=== PATIENT | female | born 1965 | race Caucasian/White ===

== ENCOUNTER 2017-02-10 19:29 | Emergency (ER) | payer OTHER ==
[2017-02-10 19:38] VITALS: BP 138/77
--- NOTE | 2017-02-10 21:17 | RAD ---
INDICATION: Left great toe pain COMPARISON: None. TECHNIQUE: 3 views of the left foot were obtained. FINDINGS: The adequately corticated bones are properly aligned. Degenerative changes of the left foot include enthesophyte formation at the calcaneal tubercle at the insertion site of the Achilles tendon and origin the plantar fascia. There is sclerotic change and mild marginal osteophyte formation at the left great toe metatarsal phalangeal joint. No definite fracture, dislocation or focal bony abnormality is seen. IMPRESSION: DEGENERATIVE CHANGES OF THE LEFT FOOT DESCRIBED ABOVE WITHOUT DEFINITE RADIOGRAPHICALLY VISIBLE FRACTURE. If the patient's symptoms persist, follow-up imaging is recommended.
[2017-02-10] MEDS ORDERED: oxyCODONE/Acetamin 5/325 MG* TAB PO ONE (21:23)
[2017-02-10] MEDS ORDERED: HYDROcodone/ACETAMIN 5-325 MG* 1 TAB PO ONE (21:30)
--- NOTE | 2017-02-10 22:37 | UC ---
Lenora Cheung Edward, scribed for Serafin Lucio MD on 02/10/17 at 2117 . Lower Extremity/Ankle HPI - HPI Summary HPI Summary: 51 y/o female presents to [facility] c/o sudden onset foot pain starting earlier today. Pain is rated 7/10 at triage, described as an aching pain. Pt's toe was pulled outward by the leg of a chair when her dog "attacked her". Pain is aggravated with weight bearing and ambulation. SHx left big toe (2012). - History of Current Complaint Chief Complaint: UCLowerExtremity Stated Complaint: TOE INJURY Time Seen by Provider: 02/10/17 21:11 Hx Obtained From: Patient Hx Last Menstrual Period: 2 yrs ago Onset/Duration: Sudden Onset, Lasting Hours Aggravating Factor(s): Standing, Ambulation Able to Bear Weight: No - Allergies/Home Medications Allergies/Adverse Reactions: Allergies Allergy/AdvReac Type Severity Reaction Status Date / Time Morphine Allergy Severe Rash Verified 02/10/17 19:38 PMH/Surg Hx/FS Hx/Imm Hx Previously Healthy: No Endocrine History: Diabetes Cardiovascular History: Hypertension Psychological History: Other Other Psychological History: Panic disorder - Surgical History Surgical History: Yes Surgery Procedure, Year, and Place: complete hysterectomy. tubal. left foot - Family History Known Family History: Positive: Respiratory Disease - Social History Occupation: Unemployed Lives: Alone Alcohol Use: None Substance Use Type: None Smoking Status (MU): Never Smoked Tobacco Have You Smoked in the Last Year: No - Immunization History Most Recent Influenza Vaccination: none Review of Systems Constitutional: Negative Skin: Negative Eyes: Negative ENT: Negative Respiratory: Negative Cardiovascular: Negative Gastrointestinal: Negative Genitourinary: Negative Motor: Negative Neurovascular: Negative Musculoskeletal: Arthralgia - L big toe pain Neurological: Negative Psychological: Negative All Other Systems Reviewed And Are Negative: Yes Physical Exam Triage Information Reviewed: Yes Vital Signs: Initial Vital Signs Temp 98.8 F 02/10/17 19:32 Pulse 84 02/10/17 19:32 Resp 18 02/10/17 19:32 BP 138/77 02/10/17 19:32 Pulse Ox 98 02/10/17 19:32 Vital Signs Reviewed: Yes - Additional Comments The patient is well-nourished in no acute distress and in no acute pain. The skin is warm and dry and skin color reflects adequate perfusion. Psychiatric: The patient has an appropriate affect and does not exhibit any anxiety or depression. Exam of LLE: The knee and ankle are non-tender. There is tenderness at the 2nd 3rd and 4th distal metatarsal. There is no ecchymosis. There is a laceration under the nail-bed. There is a subinguinal hematoma @ R great toe. There is marked tenderness @ the R great toe. Diagnostics - Radiology FOOT XRAY Xray Interpretation: No Acute Changes - DEGENERATIVE CHANGES OF THE LEFT FOOT DESCRIBED ABOVE WITHOUT DEFINITE RADIOGRAPHICALLY VISIBLE FRACTURE. If the patient's symptoms persist, follow-up imaging is recommended. Radiology Interpretation Completed By: Radiologist Lower Extremity Course/Dx - Course Course Of Treatment: 51 y/o female presents to [facility] c/o sudden onset foot pain starting earlier today. Pain is rated 7/10 at triage, described as an aching pain. Pt's toe was pulled outward by the leg of a chair when her dog "attacked her". Pain is aggravated with weight bearing and ambulation. SHx left big toe ( 2012). FOOT XR SHOWS DEGENERATIVE CHANGES OF THE LEFT FOOT DESCRIBED ABOVE WITHOUT DEFINITE RADIOGRAPHICALLY VISIBLE FRACTURE. If the patient's symptoms persist, follow-up imaging is recommended. Pt will be d/c home with f/u with PCP. - Differential Dx/Diagnosis Differential Diagnosis/HQI/PQRI: Contusion, Fracture (Closed), Sprain, Other - laceration Provider Diagnoses: Subungual hematoma with evacuation, contusion L foot, sprain L foot Discharge - Discharge Plan Condition: Stable Disposition: HOME Prescriptions: HYDROcodone/ACETAMIN 5-325 MG* [Gwynn 5-325 TAB*] 1 tab PO Q6H PRN #20 tab MDD 4 PRN Reason: pain Patient Education Materials: Subungual Hematoma (ED), Foot Contusion (ED), Foot Sprain (ED) Referrals: Yamilex Gunderson MD [Primary Care Provider] - 3 Days (Please f/u in 2-3 days) The documentation as recorded by the Lenora mejia Edward accurately reflects the service I personally performed and the decisions made by , Serafin Lucio MD.
== END 2017-02-10 22:15 | disposition home or self-care (01) ==
LOC: UCEAST 19:29
DX: S90.32XA Contusion of left foot, initial encounter (principal); S93.602A Unspecified sprain of left foot, initial encounter; W54.8XXA Other contact with dog, initial encounter; E11.9 Type 2 diabetes mellitus without complications; I10 Essential (primary) hypertension; F41.0 Panic disorder [episodic paroxysmal anxiety]; Z90.710 Acquired absence of both cervix and uterus; Z88.5 Allergy status to narcotic agent
CPT/HCPCS: 11740; 99213; A9270-GY; G0463

== ENCOUNTER 2017-03-02 18:55 | Emergency (ER) | payer OTHER ==
--- NOTE | 2017-03-02 20:06 | UC ---
Dizzy HPI HPI Summary: Pt presents to ED with complex med hx. Pt with a h/o vertigo, stroke, HTN, and DM. Pt states for 2 days has been having posterior UPTON, feeling unsteady and falling to the right. Pt states she struck her head earlier today second to being unsteady. Pt also reports intermittent chest presssure and squeezing on the right. Pt denies sob. No nausea and vomiting. Pt has not taken any medication other than her usual meds which includes ASA. Pt denies cardiac hx. Pt states sx feel similar to previous strokes. Does not follow with neurology Pt's medication reviewed at this visit. - History Of Current Complaint Chief Complaint: UCDizziness Stated Complaint: DIZZINESS Time Seen by Provider: 03/02/17 19:30 Hx Obtained From: Patient, Medical Records Hx Last Menstrual Period: 2 yrs ago Onset/Duration: Gradual Onset, Lasting Days Timing: Constant Severity Initially: Mild Severity Currently: Moderate Pain Intensity: 4 Character: Head Spinning, Room Spinning, Dizzy Aggravating Factor(s): Headache Alleviating Factor(s): Nothing Associated Signs And Symptoms: Positive: Nausea, Chest Pain, Unsteady Gait. Negative: Vomiting, Diaphoresis, SOB, Palpitations - Risk Factors CVA Risk Factor: Hypertension, Prior CVA/TIA, Diabetes - Allergies/Home Medications Allergies/Adverse Reactions: Allergies Allergy/AdvReac Type Severity Reaction Status Date / Time Morphine Allergy Severe Rash Verified 03/02/17 19:28 PMH/Surg Hx/FS Hx/Imm Hx Previously Healthy: Yes Endocrine History: Diabetes Cardiovascular History: Hypertension Neurological History: TIA, CVA Psychological History: Depression - Surgical History Surgical History: Yes Surgery Procedure, Year, and Place: complete hysterectomy. tubal. left foot, BLADDER TUCK - Family History Known Family History: Positive: Respiratory Disease - Social History Occupation: Unemployed Lives: With Family Alcohol Use: None Substance Use Type: None Smoking Status (MU): Current Every Day Smoker Type: Cigarettes Have You Smoked in the Last Year: No - Immunization History Most Recent Influenza Vaccination: none Review of Systems Constitutional: Negative Skin: Negative Eyes: Blurred Vision - intermittent ENT: Negative Respiratory: Negative Cardiovascular: Chest Pain - non current Gastrointestinal: Negative Genitourinary: Negative Motor: Negative Neurovascular: Other - dizziness, UPTON Musculoskeletal: Negative Neurological: Negative Psychological: Negative All Other Systems Reviewed And Are Negative: Yes Physical Exam Triage Information Reviewed: Yes Appearance: Well-Appearing, No Pain Distress, Well-Nourished Vital Signs: Initial Vital Signs Temp 98 F 03/02/17 19:19 Pulse 78 03/02/17 19:19 Resp 18 03/02/17 19:19 BP 140/78 03/02/17 19:19 Pulse Ox 98 03/02/17 19:19 Vital Signs Reviewed: Yes Eye Exam: Normal Eyes: Positive: Conjunctiva Clear ENT: Positive: Hearing grossly normal, Pharynx normal, TMs normal Dental Exam: Normal Neck exam: Normal Neck: Positive: Supple, Nontender, No Lymphadenopathy Respiratory Exam: Normal Respiratory: Positive: Chest non-tender, Lungs clear, Normal breath sounds, No respiratory distress, No accessory muscle use Cardiovascular Exam: Normal Cardiovascular: Positive: RRR, No Murmur Abdominal Exam: Normal Abdomen Description: Positive: Nontender, No Organomegaly, Soft Bowel Sounds: Positive: Present Musculoskeletal Exam: Normal Musculoskeletal: Positive: Strength Intact, ROM Intact Neurological: Positive: Other: - see NIH A+ox3 CN 2- 12 intact and full Pt reports increased sx with eye elevation + FNF b/l Full AROM ext b/l amb with slight drift to left + gross sensation throughout Psychological Exam: Normal Psychological: Positive: Normal Response To Family Skin Exam: Normal Dizzy Course/Dx - Course Course Of Treatment: Pt with complex med hx and h/o CVA presents c/o feeling dizziness, vertigo, headache, and intermittent CP. States feels like previous stroke. Pt has taken ASA. sx worse withvertical eye movement. EKG reviewed - no acute changes. Pt's BP borderline - pt transferred to ED for further eval. d/w pt - recommend to ED for further eval. pt comfortable and in agreement with plan - Differential Dx/Diagnosis Provider Diagnoses: vertigo. intermittent chest pain. headache - Physician Notifications Discussed Patient Care With: Dr. Lucio Time Discussed With Above Provider: 20:31 Discharge - Discharge Plan Condition: Stable Disposition: [facility] Discharge Disposition Comment: [facility] by EMS
[2017-03-02 20:20] VITALS: BP 142/80
== END 2017-03-02 20:45 | disposition short-term general hospital (02) ==
LOC: UCEAST 18:55
DX: R42 Dizziness and giddiness (principal); R07.89 Other chest pain; R51 Headache; R26.81 Unsteadiness on feet; R11.0 Nausea; E11.9 Type 2 diabetes mellitus without complications; I10 Essential (primary) hypertension; Z86.73 Personal history of transient ischemic attack (TIA), and cerebral infarction without residual deficits; F32.9 Major depressive disorder, single episode, unspecified; Z90.710 Acquired absence of both cervix and uterus; Z88.5 Allergy status to narcotic agent; F17.210 Nicotine dependence, cigarettes, uncomplicated
CPT/HCPCS: 93005; 99213; G0463

== ENCOUNTER 2017-03-02 20:47 | Emergency (ER) | payer OTHER ==
--- NOTE | 2017-03-02 22:02 | RAD ---
Indication: Chest pain. Single frontal view of the chest performed at 2145 hours was reviewed. Comparison is made with previous exam dated June 02, 2015. No mediastinal shift is noted. Heart is of normal size and configuration. Lung espinoza appear clear. IMPRESSION: NO ACTIVE CARDIOPULMONARY DISEASE IS NOTED.
[2017-03-02 22:08] LABS: Hematocrit 40 % (35-47); Hemoglobin 13.5 g/dl (12.0-16.0); Mean Corpuscular HGB Conc 34 g/dl (31-36); Mean Corpuscular Hemoglobin 28 pg (27-31); Mean Corpuscular Volume 82 fL (80-97); Mean Platelet Volume 9 um3 (7.4-10.4); Red Blood Count 4.82 10^6/ul (4.0-5.4); Red Cell Distribution Width 13 % (10.5-15); White Blood Count 6.8 10^3/ul (3.5-10.8)
[2017-03-02 22:24] LABS: Albumin 3.9 g/dL (3.2-5.2); BUN/Creatinine Ratio 19.2 (8-20); Calcium 9.1 mg/dL (8.6-10.3); EGFR African American 75.5 (>60); EGFR Non-African American 58.7 (>60); Globulin 3.1 g/dL (2-4); Magnesium 2.1 mg/dL (1.9-2.7); Potassium 3.7 mmol/L (3.5-5.0); Total Bilirubin 0.6 mg/dL (0.2-1.0)
[2017-03-02] MEDS ORDERED: Butalb/Acetamin/Caff TAB* 1 TAB PO ONE (22:49)
[2017-03-02 23:13] VITALS: BP 169/143
[2017-03-03 00:08] LABS: Urine Bacteria Absent (Absent); Urine Bilirubin Negative (Negative); Urine Glucose Negative (Negative); Urine Nitrite Negative (Negative)
--- NOTE | 2017-03-03 00:19 | ED ---
Ivelisse Cheung Thomas, scribed for Levon Mora on 03/02/17 at 2139 . Dizziness - HPI Summary HPI Summary: The pt is a 51 y/o F referred from [facility] and presenting to the ED c/o dizziness characterized as vertigo that began earlier today. The patient has a Hx of CVA, and reports that she felt similar dizziness during her last CVA. She also reports that she walked into a wall earlier today, prompting evaluation at [facility] , although in the ED she denies any head trauma. The dizziness is aggravated by rotating her head to the right. It is alleviated by nothing. 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 Pt additionally c/o CP, UPTON, and neck pain. PMHx: CVA, HTN, DM. SHx: no smoking, no alcohol use, no drug use. She was seen by Dr. Fatoumata Clinton at [facility]. - History Of Current Complaint Chief Complaint: EDHeadache Stated Complaint: HEADACHE Time Seen by Provider: 03/02/17 21:20 Hx Obtained From: Patient Onset/Duration: Still Present Timing: Constant - onset earlier today Aggravating Factor(s): Change In Head Position - to the right but not the left Alleviating Factor(s): Nothing Associated Signs And Symptoms: Positive: Chest Pain, Other: - POS: UPTON, neck pain Related History: Similar Episode/Dx as - Her previous CVA - Allergies/Home Medications Allergies/Adverse Reactions: Allergies Allergy/AdvReac Type Severity Reaction Status Date / Time Morphine Allergy Severe Rash Verified 03/02/17 19:28 PMH/Surg Hx/FS Hx/Imm Hx Previously Healthy: No Endocrine/Hematology History: Reports: Hx Diabetes - diet controlled Denies: Hx Thyroid Disease Cardiovascular History: Reports: Hx Hypertension Denies: Hx Congestive Heart Failure, Hx Pacemaker/ICD Respiratory History: Denies: Hx Asthma, Hx Chronic Obstructive Pulmonary Disease (COPD) GI History: Reports: Other GI Disorders - hx vomiting 2 yrs ? no dx per pt Denies: Hx Ulcer Neurological History: Reports: Hx CVA Psychiatric History: Reports: Hx Panic Disorder - Cancer History Hx Chemotherapy: No Hx Radiation Therapy: No - Surgical History Surgery Procedure, Year, and Place: complete hysterectomy. tubal. left foot, BLADDER TUCK Infectious Disease History: Denies: Hx Clostridium Difficile, Hx Hepatitis, Hx Human Immunodeficiency Virus (HIV), Hx of Known/Suspected MRSA, Hx Shingles, Hx Tuberculosis, Hx Known/ Suspected VRE, Hx Known/Suspected VRSA, History Other Infectious Disease, Traveled Outside the [place] in Last 30 Days - Family History Known Family History: Positive: Respiratory Disease - Social History Alcohol Use: None Substance Use Type: Reports: None Hx Tobacco Use: No Smoking Status (MU): Never Smoked Tobacco Have You Smoked in the Last Year: No Review of Systems Negative: Fever Positive: Chest Pain Positive: Other - POS: neck pain Neurological: Other - POS: dizziness Positive: Headache All Other Systems Reviewed And Are Negative: Yes Physical Exam Triage Information Reviewed: Yes Vital Signs On Initial Exam: Temp 97.5, HR 56, RR 14, SaO2 97, BP 143/53 Vital Signs Reviewed: Yes Appearance: Positive: Well-Appearing, No Pain Distress Skin: Positive: Warm, Skin Color Reflects Adequate Perfusion, Dry Head/Face: Positive: Normal Head/Face Inspection Eyes: Positive: EOMI, KIERA ENT: Positive: Normal ENT inspection Neck: Positive: Supple, Nontender Respiratory/Lung Sounds: Positive: Clear to Auscultation, Breath Sounds Present Cardiovascular: Positive: RRR, Pulses are Symmetrical in both Upper and Lower Extremities Abdomen Description: Positive: Nontender, Soft Bowel Sounds: Positive: Present Musculoskeletal: Positive: Normal, Strength/ROM Intact Neurological: Positive: Normal, Sensory/Motor Intact, Alert, Oriented to Person Place, Time Diagnostics - Vital Signs Temp 97.5, HR 56, RR 14, SaO2 97, BP 143/53 - Laboratory Result Diagrams: 03/02/17 20:10 03/02/17 20:10 Lab Statement: Any lab studies that have been ordered have been reviewed, and results considered in the medical decision making process. - Radiology CXR Xray Interpretation: No Acute Changes - no active cardiopulmonary disease Radiology Interpretation Completed By: Radiologist - EKG 21:33 Cardiac Rate: NL - 61 BPM Re-Evaluation - Re-Evaluation First Eval Re-Evaluation Time: 00:08 Change: Improved Comment: She feels better Dizzy Course/Dx - Diagnoses Provider Diagnoses: Dizziness, Headache Discharge - Discharge Plan Condition: Stable Disposition: HOME Patient Education Materials: Acute Headache (ED), Dizziness (ED) Referrals: Yamilex Gunderson MD [Primary Care Provider] - 3 Days Additional Instructions: Follow up with Dr. Gunderson in three days. The documentation as recorded by the geibIvelisse contreras Thomas accurately reflects the service I personally performed and the decisions made by me, Levon Mora.
--- NOTE | 2017-03-03 07:39 | RAD ---
INDICATION: Headache COMPARISON: CT of the brain dated March 02, 2017 TECHNIQUE: Contiguous axial sections of the brain were obtained from the skull base to the vertex without contrast. FINDINGS: The ventricles, cisterns and sulci are within normal limits. The pratt-white matter differentiation is adequately maintained and there is no sulcal effacement. No significant focal abnormality or mass effect is present. There is no evidence for intracranial hemorrhage. No significant focal osseous abnormality is present. The visualized portion of the paranasal sinuses and mastoid air cells appear clear. IMPRESSION: Normal CT of the brain.
== END 2017-03-03 00:32 | disposition home or self-care (01) ==
LOC: ED 20:47
DX: R51 Headache (principal); R42 Dizziness and giddiness; R07.9 Chest pain, unspecified; M54.2 Cervicalgia
CPT/HCPCS: 36415; 70450; 71010; 80053; 81003; 81015; 83735; 83880; 84484; 85025; 85610; 85730; 87077; 87086; 93005; 99283; A9270-GY

== ENCOUNTER 2017-07-02 15:39 | Emergency (ER) | payer OTHER ==
[2017-07-02 15:49] VITALS: BP 151/72
--- NOTE | 2017-07-02 16:24 | RAD ---
INDICATION: Right thumb injury. TECHNIQUE: 3 views of the right thumb were obtained. FINDINGS: There is soft tissue swelling at the metacarpal phalangeal joint. The bones are normal alignment. No fracture is seen. There is mild to moderate osteoarthritic change in the metacarpal phalangeal and interphalangeal joints. IMPRESSION: SOFT TISSUE SWELLING, NO FRACTURE IS SEEN.
--- NOTE | 2017-07-02 16:26 | RAD ---
INDICATION: Right wrist injury. TECHNIQUE: 3 views of the right wrist were obtained. FINDINGS: There is lateral soft tissue swelling. The bones are normal alignment. No fracture is seen. There is mild osteoarthritic change in the first carpal metacarpal joint. IMPRESSION: SOFT TISSUE SWELLING, NO FRACTURE IS SEEN. IF THE PATIENT'S SYMPTOMS PERSIST RECOMMEND FOLLOW-UP IMAGING.
--- NOTE | 2017-07-02 16:32 | UC ---
Hand/Wrist HPI - HPI Summary HPI Summary: Pt presents with right thumb pain s/p injury sustained last night. She was holding her dog on a leash when the dog ran in the opposite direction - her right thumb got caught in the leash and bent backwards. Pt says her right dorsal thumb hyperextended and touched her right dorsal radial forearm. Had immediate pain followed by swelling and ecchymosis. She has not taken anything for the pain. She is experiencing some numbness/tingling in her right thumb and right index finger. Denies previous injury to this hand/wrist. - History Of Current Complaint Chief Complaint: UCUpperExtremity Stated Complaint: HAND INJURY Time Seen by Provider: 07/02/17 15:54 Hx Obtained From: Patient Hx Last Menstrual Period: 2 yrs ago Onset/Duration: Sudden Onset Severity Initially: Moderate Severity Currently: Moderate Pain Intensity: 4 Pain Scale Used: 0-10 Numeric Character Of Pain: Dull, Aching, Throbbing Aggravating Factor(s): Movement - Allergies/Home Medications Allergies/Adverse Reactions: Allergies Allergy/AdvReac Type Severity Reaction Status Date / Time Morphine Allergy Severe Rash Verified 07/02/17 15:49 Home Medications: Home Medications Acetaminophen [Tylenol] 650 mg PO Q6H PRN 07/02/17 [History Confirmed 07/02/17] PMH/Surg Hx/FS Hx/Imm Hx GI/ History: Gastroesophageal Reflux Psychological History: Anxiety, Depression - Surgical History Surgical History: Yes Surgery Procedure, Year, and Place: complete hysterectomy. tubal. left foot, BLADDER TUCK. colon tuck - Family History Known Family History: Positive: Respiratory Disease - Social History Occupation: Employed Full-time Lives: With Family Alcohol Use: None Substance Use Type: None Smoking Status (MU): Never Smoked Tobacco Type: Cigarettes Have You Smoked in the Last Year: No - Immunization History Most Recent Influenza Vaccination: none Review of Systems Constitutional: Negative Skin: Bruising - thenar region of right hand Respiratory: Negative Cardiovascular: Negative Musculoskeletal: Edema - right thumb, Other: - Pain right thumb Neurological: Numbness - Right index and thumb All Other Systems Reviewed And Are Negative: Yes Physical Exam Triage Information Reviewed: Yes Appearance: Well-Appearing, No Pain Distress, Obese Vital Signs: Initial Vital Signs Temp 98.6 F 07/02/17 15:44 Pulse 76 07/02/17 15:44 Resp 16 07/02/17 15:44 BP 151/72 07/02/17 15:44 Pulse Ox 99 07/02/17 15:44 Vital Signs Reviewed: Yes Neck: Positive: Supple, Nontender, No Lymphadenopathy Respiratory: Positive: Chest non-tender, Lungs clear, Normal breath sounds, No respiratory distress, No accessory muscle use Cardiovascular: Positive: RRR, No Murmur, Pulses Normal - Right radial and ulnar , Brisk Capillary Refill - Right hand and all fingers Musculoskeletal: Positive: Strength Intact - Right hand and all fingers., ROM Intact - Right hand and all fingers. She is able to oppsoe, but with pain., No Edema - Right thenar region, Strength Limited @ - Optical Glass Silverer strength right hand, Other: - TTP over dorsal aspect of right thumb into right snuffbox along tendons. TTP right thenar region. Negative tinel and phalen test. Neurological: Positive: Alert, Other: - Sensations intact right hand and all fingers Psychological: Positive: Age Appropriate Behavior Skin: Positive: Other - Ecchymosis overlying the right thenar region. Hand/Wrist Course/Dx - Course Course Of Treatment: Right thumb and wrist XR: SOFT TISSUE SWELLING, NO FRACTURE IS SEEN. Suspect gamekeeper's thumb or strain of thumb ligaments/ tendons. Placed in thumb spica brace and advised to follow up with orthopedics. RICE and tylenol for pain - Differential Dx/Diagnosis Differential Diagnosis/HQI/PQRI: Contusion, Fracture, Sprain, Strain, Tendonitis , Tenosynovitis Provider Diagnoses: Right thumb sprain Discharge - Discharge Plan Condition: Stable Disposition: HOME Patient Education Materials: Skier's Thumb (ED) Referrals: Yamilex Gunderson MD [Primary Care Provider] - Teresa Martinez MD [Medical Doctor] - As Soon As Possible Additional Instructions: If you develop a fever, shortness of breath, chest pain, new or worsening symptoms - please call your PCP or go to the ED. Your blood pressure was high at todays visit. Please see your primary provider within 4 weeks for recheck and re-evaluation. 1) Keep your thumb/hand in the splint for the next 3-5 days as much as possible 2) Ice the area and take Tylenol OTC for pain/swelling. 3) Please call the number below to schedule a follow up with orthopedics.
== END 2017-07-02 16:55 | disposition home or self-care (01) ==
LOC: UCEAST 15:39
DX: S63.601A Unspecified sprain of right thumb, initial encounter (principal); X58.XXXA Exposure to other specified factors, initial encounter; Y92.9 Unspecified place or not applicable; Z88.5 Allergy status to narcotic agent
CPT/HCPCS: 99211; G0463

== ENCOUNTER 2017-09-28 06:19 | Inpatient (IN) | payer OTHER ==
--- NOTE | 2017-09-17 16:52 | HP ---
HISTORY AND PHYSICAL: DATE OF ADMISSION/SURGERY: 09/28/17 SURGEON: Guerda Bryant MD.* (DICTATED BY DAVON ORTIZ) PROCEDURE: Left total knee arthroplasty. CHIEF COMPLAINT: Left knee pain. HISTORY OF PRESENT ILLNESS: Ms. Box is a 52-year-old female with complaints of left knee pain. She has failed conservative management and elected to proceed with a left total knee arthroplasty which is scheduled for 09/28/17. PAST MEDICAL HISTORY: 1. Hypertension. 2. History of stroke. 3. Depression. 4. Anxiety. 5. GERD. 5. Schizoaffective disorder. PAST SURGICAL HISTORY: 1. Left foot corn removal. 2. Hysterectomy. 3. Bladder and colon tucks. CURRENT MEDICATIONS: 1. Ranitidine 150 mg twice a day. 2. Aspirin 81 mg daily. 3. Citalopram hydrobromide 10 mg every day. 4. Amlodipine 10 mg daily. 5. Omeprazole 20 mg daily. 6. Multivitamin. 7. Fiber. 8. Atorvastatin. 9. Calcium 20 mg q.h.s. ALLERGIES: MORPHINE causing a rash. FAMILY HISTORY: Unknown. SOCIAL HISTORY: A 52-year-old female. She lives with her daughter and roommate. She denies use of drugs, alcohol or smoking. REVIEW OF SYSTEMS: A complete 14-point review of systems was reviewed with the patient. It is positive for history of stroke and GERD. She denies history of DVT, PE, hepatitis C, HIV or anesthesia problems. PHYSICAL EXAMINATION GENERAL: She is well developed, well nourished, in no acute distress. VITAL SIGNS: She stands 5 feet 7 inches tall, weighs 217 pounds. Her blood pressure is 124/82, heart rate 85. HEENT: Normocephalic, atraumatic. NECK: Supple. No palpable lymph nodes. PULMONARY: The lungs are clear to auscultation bilaterally. CARDIAC: Regular rate and rhythm. Strong S1 and S2. ABDOMEN: Soft, nontender, and nondistended. MUSCULOSKELETAL: Left lower extremity, the skin is intact. There is no open wounds or abrasions. She has some tenderness over the medial and lateral joint line. There is a moderate joint effusion. Range of motion is 10 to 120 degrees with significant patellofemoral crepitus and pain, 2+ dorsalis pedis pulses. She has intact sensation. Her lower extremity muscle group strengths are intact at 5/5. NEUROLOGIC: She is alert and oriented x3. Cranial nerves II through XII are intact. ASSESSMENT AND PLAN: Ms. Box is a 52-year-old female with complaints of left knee pain secondary to end-stage osteoarthritis. She has failed conservative management and has elected to proceed with a left total knee arthroscopy, which is scheduled for 09/28/[address] Bryant discussed the risks and benefits of the surgery at today's visit and all of her questions were answered. Coumadin, Colace and Percocet were sent to our pharmacy for postoperative pain control and DVT prophylaxis. She will follow up with Dr. Bryant 2 weeks after the surgery. DAVON ORTIZ [id number]/CPS #: [id number] MTDD
[~2017-09-28 06:19] MED LIST: Acetaminophen TAB* 325 MG PO ONE; Buffered Lidocaine 0.9% SYRIN* 5 ML/SYR SYRINGE INTRADERM ONE; Dexamethasone IV* 4 MG/ML 1 ML (4 MG) IV SLOW PU ONE; Famotidine IV* 10 MG/ML 2 ML (20 mg) IV ONE
[2017-09-28] MEDS ORDERED: ceFAZolin 2 GM PREMIX (*) 2 GM/50 ML BAG IVPB ONE (06:53)
[2017-09-28] MEDS ORDERED: Acetaminophen TAB* 325 MG ONE (06:53)
[2017-09-28] MEDS ORDERED: Dexamethasone IV* 4 MG/ML 1 ML (4 MG) ONE (06:53)
[2017-09-28] MEDS ORDERED: Famotidine IV* 10 MG/ML 2 ML (20 mg) ONE (06:53)
[2017-09-28] MEDS ORDERED: Bupivacaine 0.5% SDV PF* 10-30ML VIAL ONE (07:18)
[2017-09-28] MEDS ORDERED: Lidocaine 2% PF * 5 ML VIAL ONE (07:44)
[2017-09-28] MEDS ORDERED: Midazolam* 1 MG/ML 2 ML VIAL (2 MG) ONE (07:44)
[2017-09-28] MEDS ORDERED: fentaNYL* 50 MCG/ML 2 ML VIAL (100 MCG VIAL) ONE (07:44)
[2017-09-28] MEDS ORDERED: Propofol* 500 MG/50 ML BTL ONE (07:44)
[2017-09-28] MEDS ORDERED: Polyethylene Glycol 3350* 17 GM PACKET PO PRN (07:56)
[2017-09-28] MEDS ORDERED: Ondansetron INJ* 2 MG/ML VIAL IV PRN (07:56)
[2017-09-28] MEDS ORDERED: Magnesium Hydroxide LIQ* 30 ML UDC PO PRN (07:56)
[2017-09-28] MEDS ORDERED: oxyCODONE/Acetamin 5/325 MG* TAB PO PRN (07:56)
[2017-09-28] MEDS ORDERED: Acetaminophen TAB* 325 MG PO PRN (07:56)
[2017-09-28] MEDS ORDERED: diPHENhydraMINE IV* 50 MG/ML 1 ml VIAL (BENADRYL) IV PRN ×2 (07:56→08:01)
[2017-09-28] MEDS ORDERED: Cyclobenzaprine TAB* 10 MG PO PRN (07:56)
[2017-09-28] MEDS ORDERED: Bisacodyl SUPP* 10 MG SUPP PR PRN (07:56)
[2017-09-28] MEDS ORDERED: Ondansetron TAB* 4 MG PO PRN (07:56)
[2017-09-28] MEDS ORDERED: ceFAZolin 1 GM in Dextrose (*) 1 GM/50 ML BAG IVPB SCH (08:00)
[2017-09-28] MEDS ORDERED: Naloxone* 0.4 MG/ML 1 ML VIAL IV PRN (08:01)
[2017-09-28] MEDS ORDERED: fentaNYL* 50 MCG/ML 2 ML VIAL (100 MCG VIAL) IV PRN (08:01)
[2017-09-28] MEDS ORDERED: Scopolamine 1.5 mg* PATCH TRANSDERM PRN (08:01)
[2017-09-28] MEDS ORDERED: oxyCODONE TAB* 5 MG TAB PO PRN ×2 (08:01)
[2017-09-28] MEDS ORDERED: HYDROmorphone INJ* 1 MG/ML CARPUJECT SYRINGE IV PRN (08:01)
[2017-09-28] MEDS ORDERED: PROCHLORPERAZINE INJ 5 MG/ML 2 ML VIAL IM PRN (08:02)
[2017-09-28] MEDS ORDERED: HYDROmorphone INJ* 2 MG/ML CARPUJECT SYRINGE IV SLOW PU PRN (08:05)
[2017-09-28] MEDS ORDERED: Rocuronium* 10 MG/ML VIAL ONE (08:17)
[2017-09-28] MEDS ORDERED: ATORVASTATIN CALCIUM 20 MG PO SCH (09:00)
[2017-09-28] MEDS ORDERED: amLODIPine TAB* 5 MG PO SCH (09:00)
[2017-09-28] MEDS ORDERED: HYDROmorphone INJ* 1 MG/ML CARPUJECT SYRINGE ONE (09:01)
[2017-09-28] MEDS ORDERED: EPHEDrine (Pressors)* 50 MG/ML VIAL ONE (09:02)
[2017-09-28] MEDS ORDERED: Ketorolac INJ* 30 MG/ML 1 ML VIAL ONE (09:03)
[2017-09-28] MEDS ORDERED: Glycopyrrolate IV* 0.2 MG/ML 1 ML VIAL ONE (10:10)
[2017-09-28] MEDS ORDERED: Neostigmine Methylsulfate* 1 MG/ML 10 ML VIAL (1 mg/ml) ONE (10:10)
[2017-09-28] MEDS ORDERED: Ondansetron INJ* 2 MG/ML VIAL ONE (10:20)
--- NOTE | 2017-09-28 11:41 | RAD ---
INDICATION: Left total knee replacement COMPARISON: July 27, 2017 TECHNIQUE: AP and lateral views were obtained. FINDINGS: There is left knee arthroplasty. Both femoral and tibial components appear well seated. There is no overlying cooling jacket. IMPRESSION: LEFT KNEE ARTHROPLASTY.
[2017-09-28] MEDS ORDERED: oxyCODONE TAB* 5 MG TAB ONE (11:52)
--- NOTE | 2017-09-28 13:03 | CONS ---
CC: Dr. Gunderson; Dr. Bryant * CONSULTATION REPORT: DATE OF CONSULT: 09/28/17 PRIMARY CARE PROVIDER: Dr. Gunderson. REQUESTING PHYSICIAN IN CONSULT: Guerda Bryant MD. REASON FOR MEDICAL CONSULTATION: Evaluation of comorbid medical conditions and medical management. MY ATTENDING PHYSICIAN WHILE IN THE HOSPITAL: Freda Park DO. HISTORY OF PRESENT ILLNESS: I refer you to Dr. Bryant's H and P dictated for further details. In short, Ms. Box is a 52-year-old female patient with multiple medical problems who carries a history of hypertension, depression, anxiety, schizoaffective disorder, GERD, history of CVA in the past, question if this was functional or not. She has had exhaustive workup. She basically came in to Dr. Bryant's service as she has been complaining of left knee pain for some time, she had failed conservative therapy and elected to proceed for a left total knee replacement which she underwent today. Because of her complexity, we were asked to evaluate and help manage the patient. She was evaluated in the PACU. She is drowsy from the anesthetic, but she does awaken and she is appropriate. She states she is not having any chest pain. She states her knee feels sore. She denies having any shortness of breath or any abdominal pain. She states she does not feel nauseous and she denies having any shortness of breath and states that she does not feel like she is going to faint. She states she does not feel lightheaded or dizzy. She just feels tired and sore. Again, her medical complexity is the reason for the medical evaluation. PAST MEDICAL HISTORY: Significant for: 1. Hypertension. 2. Prediabetes. 3. Depression. Question if schizoaffective disorder. 4. History of CVA. Question if functional. 5. Arthritis. 6. Restless leg syndrome. 7. Chronic back pain. 8. Obesity. PAST SURGICAL HISTORY: 1. She has had a tubal ligation. 2. D and C. 3. Foot surgery. 4. Hysterectomy. 5. Left total knee replacement. HOME MEDICATIONS: Include: 1. Zantac 150 mg p.o. b.i.d. 2. Norvasc 10 mg daily. 3. Restless leg 10 mg daily. 4. Omeprazole 20 mg daily. 5. Multivitamin 1 tablet daily. 6. Fiber therapy 500 mg p.o. daily. 7. Celexa 10 mg p.o. daily. 8. Lipitor 20 mg daily. 9. Aspirin 81 mg daily. ALLERGIES TO MEDICATIONS: Include MORPHINE. FAMILY HISTORY: Unknown per the patient. SOCIAL HISTORY: She denies smoking or alcoholism. Surrogate decision makers are her children. REVIEW OF SYSTEMS: There is no documented fever. She denied having any significant weight change. No double vision. No ear discharge. No rhinorrhea. No sore throat. No thyroid enlargement. Denies having any chest pain. No orthopnea, no nocturnal dyspnea, no abdominal pain. No nausea, no vomiting, no dysuria. No frequency. No seizure. No loss of consciousness. No pruritus and no skin ulcerations. Review of 14 systems completed, all others negative. PHYSICAL EXAMINATION: Vital Signs: Blood pressure 130/65, pulse 89, respirations 14, O2 sat 97% on 8 L and temperature 98.1. General: At this time , Ms. Box is a 52-year-old female patient. She is sitting in the PACU stretcher. She does not appear to be in any acute distress. She appears to be well nourished, well developed. HEENT: Head is atraumatic. Eyes: Sclerae anicteric, not pale. Pupils equal and reactive to light. Throat: Oral mucosa appears to be dry. No oropharyngeal erythema. Neck: Supple. Lungs: Clear to auscultation bilaterally. No wheezes, rales or rhonchi. Heart: Sounds S1, S2. Regular rate and rhythm. No murmurs, rubs or gallops. Abdomen: Soft, flat, nontender. Bowel sounds hypoactive. Extremities: Pulses were 2+ throughout. Distal CSM checks are intact to the left lower extremity. She is unable to move that lower extremity as this is the preoperative leg, but she is moving the upper extremities at this point with 5/5 strength. Neurological: She is drowsy, but she awakens to her name. She is alert. She is oriented x3. Her traffic signal mechanic to me were equal. Tongue was midline. She had no gross focal deficits. Her skin was intact with the exception she has an incision to the left knee which is covered with an Marcell dressing with a Hemovac which is clean, dry and intact. LABORATORY DATA/DIAGNOSTIC STUDIES: Preop WBC of 6.6, RBC of 4.95, hemoglobin 13.9, hematocrit of 41, platelet count of 220,000. The INR was 0.90. The sodium was 141, potassium of 3.9, chloride of 105, bicarb 31, BUN 15, creatinine 0.86, AST 16, ALT 16. Urine preop showed trace leukocyte esterase, present squamous epithelial cells. Microbiology preop was negative for urine culture. She did have a preop chest x-ray which showed no acute cardiopulmonary process was evident. She did have an EKG outpatient showing a normal sinus rhythm, rate of 86. No ST-elevations or T-wave inversions. Old medical records reviewed. ASSESSMENT AND PLAN: Ms. Box is a 52-year-old female patient coming in to the orthopedic services today for an elective left total knee. We were asked to evaluate in consult. Recommendations at this point are: 1. Status post left total knee. I will defer the management to Dr. Byrant and her team. 2. History of hypertension. I have ordered her Norvasc. She did undergo general anesthesia. Her blood pressure postop is now on the 130s. I wrote for hold parameters for the blood pressure medications, but we will continue her Norvasc for now. 3. History of cerebrovascular accident. Continue with secondary prevention. I do note that Orthopedics stopped her aspirin. I will restart this as soon as possible when it is deemed safe and appropriate by Orthopedics, to help with secondary prevention and continue her statin therapy. 4. Anxiety and depression with question of schizoaffective disorder. Continue her Celexa. Continue meds as prescribed. 5. DVT prophylaxis. Defer to the primary team. 6. Chronic back pain. She can follow with her primary. 7. Osteoarthritis. Continue with current medical management. 8. Fluids, electrolytes and nutrition. I would recommend a heart healthy diet. 9. Code status: She is a full code. 10. Prediabetes. Again at this point, she is not actively diabetic, but we will follow her a.m. glucose. TIME SPENT: On the consult was 60 minutes, greater than half that time was spent [id number] with the patient obtaining my history and physical, the other half time was spent going over the plan of care with the patient and implementing the plan of care. I did discuss plan of care with my attending, Dr. Park, she is in agreement. ALEXI DOMINGO, MECHANICAL ENGINEERING TECHNICIAN [id number]/[facility] #: [id number] GIOVANA
[2017-09-28] MEDS: Docusate CAP* 100 MG PO SCH ×2 (13:22→20:31)
[2017-09-28] MEDS: Citalopram TAB* 10 MG PO SCH (13:22)
[2017-09-28] MEDS: Famotidine TAB* 20 MG PO SCH ×3 (13:23→20:31)
[2017-09-28] MEDS: Magnesium Hydroxide LIQ* 30 ML UDC PO SCH ×2 (13:23→20:31)
[2017-09-28] MEDS: oxyCODONE/Acetamin 5/325 MG* TAB PO PRN ×2 (14:11→19:36)
[2017-09-28] MEDS: ceFAZolin 1 GM in Dextrose (*) 1 GM/50 ML BAG IVPB SCH (16:26)
[2017-09-28] MEDS: oxyCODONE TAB* 5 MG TAB PO PRN ×2 (16:34→23:30)
[2017-09-28] MEDS ORDERED: Warfarin TAB(*) 6 MG PO ONE (17:00)
[2017-09-29] MEDS: ceFAZolin 1 GM in Dextrose (*) 1 GM/50 ML BAG IVPB SCH ×2 (00:41→09:14)
[2017-09-29] MEDS: oxyCODONE/Acetamin 5/325 MG* TAB PO PRN ×4 (04:35→23:19)
[2017-09-29 05:44] LABS: Hematocrit 32 % (35-47); Mean Platelet Volume 8.4 um3 (7.4-10.4); Platelet Count 193 10^3/ul (150-450)
[2017-09-29 05:53] LABS: INR 1.02 (0.77-1.02)
[2017-09-29 06:02] LABS: EGFR Non-African American 68.8 (>60)
[2017-09-29] MEDS: Omeprazole CAP* 20 MG PO SCH (07:08)
[2017-09-29] MEDS: oxyCODONE TAB* 5 MG TAB PO PRN ×3 (07:24→20:34)
[2017-09-29] MEDS: Magnesium Hydroxide LIQ* 30 ML UDC PO SCH ×2 (09:15→20:34)
[2017-09-29] MEDS: Docusate CAP* 100 MG PO SCH ×2 (09:16→20:34)
[2017-09-29] MEDS: Citalopram TAB* 10 MG PO SCH (09:16)
[2017-09-29] MEDS: amLODIPine TAB* 5 MG PO SCH (09:16)
[2017-09-29] MEDS: Famotidine TAB* 20 MG PO SCH ×2 (09:16→20:34)
[2017-09-29] MEDS: Atorvastatin* 20 MG TAB PO SCH (09:16)
--- NOTE | 2017-09-29 11:24 | PN ---
Progress Note - Progress Note Date of Service: 09/29/17 SOAP: Subjective: []Patient seen OOB in chair. She reports left knee pain of 8/10. Denies leg numbness, chest pain, shortness of breath, dizziness, fever, chills or nausea. Objective: [] Vital Signs Temp 98.2 F 09/29/17 07:49 Pulse 64 09/29/17 07:49 Resp 18 09/29/17 09:20 BP 123/53 09/29/17 07:49 Pulse Ox 95 09/29/17 08:00 Intake & Output 09/28/17 09/29/17 09/29/17 18:59 06:59 18:59 Intake Total 2840 3045 1044 Output Total 375 2025 350 Balance 2465 1020 694 Weight 215 lb 12.8 oz Intake: IV Fluids 1999 985 1044 ABX - CEFAZOLIN 55 LR 2000 985 989 IVPB 60 ABX - CEFAZOLIN 60 Oral 840 2000 Output: Urine 350 Valerio 125 5 Estimated Blood Loss 250 Other: Estimated Void Medium Laboratory Last Values Hgb 11.0 g/dl (12.0-16.0) L 09/29/17 05:16 Hct 32 % (35-47) L 09/29/17 05:16 Plt Count 193 10^3/ul (150-450) 09/29/17 05:16 MPV 8.4 um3 (7.4-10.4) 09/29/17 05:16 INR (Anticoag Therapy) 1.02 (0.77-1.02) 09/29/17 05:16 Sodium 137 mmol/L (139-145) L 09/29/17 05:16 Potassium 4.2 mmol/L (3.5-5.0) 09/29/17 05:16 Chloride 101 mmol/L (101-111) 09/29/17 05:16 Carbon Dioxide 27 mmol/L (22-32) 09/29/17 05:16 Anion Gap 9 mmol/L (2-11) 09/29/17 05:16 BUN 13 mg/dL (6-24) 09/29/17 05:16 Creatinine 0.86 mg/dL (0.51-0.95) 09/29/17 05:16 Est GFR ( Amer) 88.4 (>60) 09/29/17 05:16 Est GFR (Non-Af Amer) 68.8 (>60) 09/29/17 05:16 BUN/Creatinine Ratio 15.1 (8-20) 09/29/17 05:16 Glucose 156 mg/dL (70-100) H 09/29/17 05:16 Calcium 8.5 mg/dL (8.6-10.3) L 09/29/17 05:16 General: Well appearing, NAD. LLE: Left knee dressing CDI without surrounding erythema or edema. Drain pulled this morning by Dr Bryant without complication. DF/PF intact. DP/PT 2+. Sensation intact distally. BL LE: Calves supple and nontender without erythema, edema or palpable cords. Assessment: []POD 1 sp left total knee arthroplasty 09/28 Dr Bryant PMHx includes history of stroke, hypertension, schizoaffective disorder, anxiety , depression and GERD Plan: []WBAT PT/OT Lovenox, coumadin 8 mg today human capital manager discussed options for DC. Patient originally felt she may need rehab at DC but is now planning for DC home tomorrow.
[2017-09-29] MEDS: Enoxaparin(*) 30 MG/0.3 ML SYR SUBCUT SCH (12:18)
--- NOTE | 2017-09-29 12:45 | OP ---
DATE OF OPERATION: 09/28/17 - ROOM #[id number] DATE OF : 61 SURGEON: Guerda Bryant MD. CORK GRINDER: DAVON Giron. Ms. Chavarria did help throughout the procedure with preparation of the leg, wound retraction, and manipulation of the knee and wound closure. ANESTHESIOLOGIST: Dr. Phillips. ANESTHESIA: Spinal. PRE-OP DIAGNOSIS: Severe endstage degenerative osteoarthritis of the left knee joint. POST-OP DIAGNOSIS: Severe endstage degenerative osteoarthritis of the left knee joint. OPERATIVE PROCEDURE: Left total knee arthroplasty. TOURNIQUET TIME: 57 minutes. COMPLICATIONS: None. SPECIMEN: Bone and cartilage from the left knee joint sent to pathology. ESTIMATED BLOOD LOSS: 300 cc. HARDWARE USED: This is a cemented Winkler [employer] Nephew total knee arthroplasty hardware. Two packages of Simplex bone cement were used. For the femur, a left narrow Oxinium size 4 posterior stabilized Legion femoral component. For the tibia, a size 3 left tibial base plate. For the insert, an 11 mm posterior stabilized articular insert, size 3-4. For the patella, a 32-mm 3-peg all poly patella. BRIEF HISTORY/INDICATIONS: Ms. Box is a 52-year-old female with years of increasingly severe left knee pain. She failed conservative treatment with anti - inflammatories, pain medication, intraarticular injections, and physical therapy. Due to continued pain and decreased quality of life, she elected to undergo left total knee arthroplasty. Radiographs showed bone on bone contact. Informed consent was obtained from the patient. She understood the risks of the surgery included, but were not limited to, bleeding, infection, damage to nearby structures, continued pain, need for further surgery, intraoperative fracture, nerve palsy, hardware failure, loosening, knee stiffness, loss of motion, stroke, heart attack, blood clot, and . She wished to proceed. INTRAOPERATIVE FINDINGS: Intraoperatively, the patient was noted to have tricompartmental disease with full thickness loss of cartilage. DESCRIPTION OF PROCEDURE: Ms. Box was identified in the preanesthesia unit. Her left lower extremity was marked as the correct operative side. Informed consent was signed and placed in the chart. The patient was taken to the operating room and placed under spinal anesthesia. A Valerio catheter was placed. Tourniquet was placed on the left thigh. Left lower extremity was prepped and draped in the usual sterile fashion. Preop time-out was made once again to correctly identify the patient's side and site. Appropriate perioperative antibiotics were given within 1 hour of incision. Tourniquet was inflated until the tourniquet time for this procedure was 57 minutes. A midline incision was made with a 10 blade and carried down to the skin through the extensive mechanism. A new 10 blade was used to make a standard medial parapatellar arthrotomy. The patella was subluxed laterally. Electrocautery was used to dissect periosteally, elevate soft tissues off the medial tibia in the mid sagittal plane. The knee was flexed up. The anterior horn of the lateral meniscus and ACL was sharply released. A drill was used to enter the distal femur. Intramedullary distal femoral cutting guide was pinned on the distal femur. Oscillating saw was used to make the appropriate chamfer cuts. Next, the external rotation guide was pinned on the distal femur. The distal femur was sized to a size 4. Size 4 multi-cutting jig was pinned on the distal femur. Oscillating saw was used to make the appropriate chamfer cuts. The PCL was completely released and the tibia was subluxed anteriorly. Intramedullary tibial cutting guide was pinned on the proximal tibia. Oscillating saw was used to make the proximal tibial cut perpendicular to the mechanical axis of the tibia. The bone was carefully removed. The knee was brought out into full extension. Spacer block had good fit. Medial and lateral ligaments were well balanced. Flexion and extension gaps were well balanced. The knee was flexed up. Lamina apricot packer was placed both medially and laterally. Any remaining meniscus was removed using electrocautery. Curved osteotome was used to remove posterior osteophytes. Tibial tray and drop ralph showed satisfactory proximal tibial cut. A size 4 narrow left femoral trial was chosen and impacted on to the distal femur. This had excellent fit and stability. The box for the posterior stabilized implant was prepared using a reamer and box cut osteotome. Size 3 tibial tray trial with an 11 mm insert trial was chosen. The knee was taken through a range of motion. The knee has full extension to 130 degrees of flexion with satisfactory patellofemoral tracking. The patella was everted. 9 mm of patellar bone and cartilage was carefully removed using an oscillating saw. Patella was sized to a size 32. The three peg holes were drilled through the size 32 guide. 32 trial patellar trial was placed and the knee was taken through a range of motion. There was satisfactory patellofemoral tracking. All trials were carefully removed. The tibia was subluxed anteriorly and sized to a size 3. Proximal tibia was prepared using a size 3 keel punch. All bony cut surfaces were copiously irrigated with sterile saline and dried. Final implants were cemented into place starting with the tibia followed by the femur and last the patella. A 11 mm insert trial was placed and the knee was taken out into full extension. Tourniquet was turned down at 57 minutes. The cement was allowed to fully cure. The knee was copiously irrigated with sterile saline. Electrocautery was used to obtain meticulous hemostasis. Once the cement had fully cured, the insert trial was removed. Any excess cement was removed from around the capsule and hardware. Final implant chosen was a 11 mm posterior stabilized articular insert size 3-4. This was locked into position on the tibial tray. Stability of the insert was checked and rechecked and noted to be stable. The knee was once again irrigated with sterile saline. The extensor mechanism was closed using interrupted #1 Vicryls over a medium Hemovac drain. The rest of the incision was closed in a layered fashion using 0 and 2-0 Vicryls. Skin was closed using running 3-0 nylon suture. Sterile Xeroform, 4x4, and Webril were used to cover the incision. Marcell wrap and cold pack were placed over this. The patient's anesthesia was reversed without difficulty. She was taken to the PACU in stable condition. Intended weightbearing will be weightbearing as tolerated. Intended DVT prophylaxis will be Coumadin with a Lovenox bridge. [id number]/[facility] #: [id number] [facility] CENTERDallin
[2017-09-29] MEDS ORDERED: Dextrose 50% Syringe 50 ML* 25 GM/50 ML SYRINGE IV PUSH PRN (13:07)
--- NOTE | 2017-09-29 13:12 | PN ---
Subjective Date of Service: 09/29/17 Interval History: Patient states her pain is at a 3/10. Patient states it is tolerable with activity and was able to work well with PT today. Patient has not had a BM today but goes up to a week at home generally between BMs and employs no bowel regimen at home. Patient is urinating frequently. Patient denies F/C, N/v, abdominal pain, diarrhea, CP, SOB, or other pain. Patient appears somewhat guarded and suspicious of questions and treatment. Family History: Unchanged from Admission Social History: Unchanged from Admission Past Medical History: Unchanged from Admission Objective Active Medications: Acetaminophen (Tylenol Tab*) 650 mg PO Q4H PRN PRN Reason: PAIN OR TEMPERATURE Amlodipine Besylate (Norvasc Tab*) 10 mg PO DAILY [facility] Last Admin: 09/29/17 09:16 Dose: 10 mg Atorvastatin Calcium (Lipitor*) 20 mg PO DAILY [facility] Last Admin: 09/29/17 09:16 Dose: 20 mg Bisacodyl (Dulcolax Supp*) 10 mg TN DAILY PRN PRN Reason: constipation Citalopram Hydrobromide (Celexa Tab*) 10 mg PO DAILY [facility] Last Admin: 09/29/17 09:16 Dose: 10 mg Cyclobenzaprine HCl (Flexeril Tab*) 10 mg PO TID PRN PRN Reason: SPASMS Dextrose (D50w Syringe 50 Ml*) 12.5 gm IV PUSH .FOR FS < 60 - SS PRN PRN Reason: FS < 60 Diphenhydramine HCl (Benadryl Iv*) 12.5 mg IV Q6H PRN PRN Reason: PRURITIS Docusate Sodium (Colace Cap*) 100 mg PO BID [facility] Last Admin: 09/29/17 09:16 Dose: 100 mg Enoxaparin Sodium (Lovenox(*)) 30 mg SUBCUT Q24H [facility] Last Admin: 09/29/17 12:18 Dose: 30 mg Famotidine (Pepcid Tab*) 20 mg PO BID [facility] Last Admin: 09/29/17 09:16 Dose: 20 mg Hydromorphone HCl (Dilaudid Inj*) 2 mg IV SLOW PU Q4H PRN PRN Reason: PAIN Lactated Ringer's (Lactated Ringers 1000 Ml Bag*) 1,000 mls @ 100 mls/hr IV PER RATE [facility] Last Admin: 09/28/17 23:16 Dose: 100 mls/hr Insulin Human Lispro (Humalog*) 0 units SUBCUT AC [facility] PRN Reason: Protocol Lactulose (Lactulose*) 30 ml PO Q6H PRN PRN Reason: constipation Magnesium Hydroxide (Milk Of Magnesia Liq*) 30 ml PO BID [facility] Last Admin: 09/29/17 09:15 Dose: 30 ml Magnesium Hydroxide (Milk Of Magnesia Liq*) 30 ml PO Q6H PRN PRN Reason: constipation Omeprazole (Prilosec Cap*) 20 mg PO 0730 [facility] Last Admin: 09/29/17 07:08 Dose: 20 mg Ondansetron HCl (Zofran Inj*) 4 mg IV Q6H PRN PRN Reason: nausea Ondansetron HCl (Zofran Tab*) 4 mg PO Q6H PRN PRN Reason: NAUSEA Oxycodone HCl (Roxycodone Tab*) 10 mg PO Q4H PRN PRN Reason: SEVERE PAIN Last Admin: 09/29/17 12:23 Dose: 10 mg Oxycodone/Acetaminophen (Percocet 5/325 Tab*) 2 tab PO Q4H PRN PRN Reason: PAIN Last Admin: 09/29/17 09:18 Dose: 2 tab Oxycodone/Acetaminophen (Percocet 5/325 Tab*) 1 tab PO Q4H PRN PRN Reason: PAIN Pharmacy Profile Note (Coumadin Daily Reminder*) 1 note FOLLOW UP 1700 [facility] Last Admin: 09/28/17 16:35 Dose: 1 note Polyethylene Glycol/Electrolytes (Miralax*) 17 gm PO DAILY PRN PRN Reason: Constipation Warfarin Sodium (Coumadin Tab(*)) 8 mg PO ONCE@1700 ONE PRN Reason: Protocol Stop: 09/29/17 17:01 Vital Signs - 8 hr 09/29/17 09/29/17 09/29/17 07:22 07:24 07:49 Temperature 98.2 F Pulse Rate 64 Respiratory 18 18 17 Rate Blood Pressure 123/53 (mmHg) O2 Sat by Pulse 95 Oximetry 09/29/17 09/29/17 09/29/17 08:00 09:18 09:20 Temperature Pulse Rate Respiratory 16 18 18 Rate Blood Pressure (mmHg) O2 Sat by Pulse 95 Oximetry 09/29/17 09/29/17 09/29/17 11:45 12:16 12:23 Temperature 98.4 F Pulse Rate 65 Respiratory 14 18 18 Rate Blood Pressure 125/62 (mmHg) O2 Sat by Pulse 93 Oximetry Oxygen Devices in Use Now: None Appearance: Patient is a 52yo female who appears stated age and is sitting in the bed in NAD. Eyes: No Scleral Icterus, PERRLA Ears/Nose/Mouth/Throat: NL Teeth, Lips, Gums, Clear Oropharnyx, Mucous Membranes Moist Neck: NL Appearance and Movements; NL JVP, Trachea Midline Respiratory: Symmetrical Chest Expansion and Respiratory Effort, Clear to Auscultation Cardiovascular: NL Sounds; No Murmurs; No JVD, RRR, No Edema Abdominal: NL Sounds; No Tenderness; No Distention, No Hepatosplenomegaly Lymphatic: No Cervical Adenopathy Extremities: No Edema, No Clubbing, Cyanosis, - - Right knee covere by bulky dressing with cold pack. Skin: No Rash or Ulcers, No Nodules or Sclerosis Neurological: Alert and Oriented x 3, NL Sensation, NL Muscle Strength and Tone , - - CN II-XII intact. Result Diagrams: 09/29/17 05:16 09/29/17 05:16 Assess/Plan/Problems-Billing Assessment: Patient is a 52yo female with a PMH significant for Prediabetes, HTN, schizoaffective disorder who is S/P a RTKA on 09/28 and is progressing well. - Patient Problems (1) History of arthroplasty of right knee Current Visit: Yes Status: Acute Code(s): Z96.651 - PRESENCE OF RIGHT ARTIFICIAL KNEE JOINT SNOMED Code(s): 627710447 Comment: Management per ortho, good pain control. Passing flatus with no BM. Urinating without gerber. H/H stable, will monitor. (2) Hypertension Current Visit: Yes Status: Acute Code(s): I10 - ESSENTIAL (PRIMARY) HYPERTENSION SNOMED Code(s): 29086516 Comment: Normotensive, continue amlodipine. (3) Diabetes Current Visit: Yes Status: Acute Code(s): E11.9 - TYPE 2 DIABETES MELLITUS WITHOUT COMPLICATIONS SNOMED Code(s): 54658754 Comment: Morning glucose elevated. Will check Hemoglobin A1c. Follow up outpatient for possible therapy. SSI and FSBG AC. (4) History of CVA (cerebrovascular accident) Current Visit: Yes Status: Acute Code(s): Z86.73 - PRSNL HX OF TIA (TIA), AND CEREB INFRC W/O RESID DEFICITS SNOMED Code(s): 882879758 Comment: No residual deficits. No sign of new CVA, continue secondary prevention. Resume ASA in AM. (5) DVT prophylaxis Current Visit: Yes Status: Acute Code(s): XIC4498 - SNOMED Code(s): 413672243 Comment: Lovenox to Warfarin (6) Full code status Current Visit: Yes Status: Acute Code(s): Z78.9 - OTHER SPECIFIED HEALTH STATUS SNOMED Code(s): 652536554 Status and Disposition: Disposition per Ortho
[2017-09-29] MEDS ORDERED: Insulin LISPRO* 1 UNITS UNIT SUBCUT ONE (13:13)
[2017-09-29] MEDS: Insulin LISPRO* 1 UNITS UNIT SUBCUT SCH ×2 (13:15→17:28)
[2017-09-29] MEDS ORDERED: Warfarin TAB(*) 4 MG PO ONE (17:00)
[2017-09-30] MEDS: oxyCODONE TAB* 5 MG TAB PO PRN ×2 (02:18→07:39)
[2017-09-30] MEDS: oxyCODONE/Acetamin 5/325 MG* TAB PO PRN ×2 (05:29→10:01)
[2017-09-30 05:47] LABS: Hematocrit 31 % (35-47); Hemoglobin 10.8 g/dl (12.0-16.0); Mean Platelet Volume 8.5 um3 (7.4-10.4); Platelet Count 188 10^3/ul (150-450)
[2017-09-30 05:53] LABS: INR 1.54 (0.77-1.02)
[2017-09-30] MEDS: Omeprazole CAP* 20 MG PO SCH (07:31)
[2017-09-30] MEDS: Famotidine TAB* 20 MG PO SCH (08:00)
[2017-09-30] MEDS: Insulin LISPRO* 1 UNITS UNIT SUBCUT SCH ×2 (08:21→12:14)
[2017-09-30] MEDS: Magnesium Hydroxide LIQ* 30 ML UDC PO SCH (08:22)
[2017-09-30] MEDS: Atorvastatin* 20 MG TAB PO SCH (08:22)
[2017-09-30] MEDS: Citalopram TAB* 10 MG PO SCH (08:23)
[2017-09-30] MEDS: amLODIPine TAB* 5 MG PO SCH (08:23)
[2017-09-30] MEDS: Docusate CAP* 100 MG PO SCH (08:29)
[2017-09-30] MEDS ORDERED: Aspirin 81 mg CHEW TAB* 81 MG TAB.CHEW PO SCH (09:00)
--- NOTE | 2017-09-30 10:35 | PN ---
Progress Note - Progress Note Date of Service: 09/30/17 SOAP: Subjective: []Patient seen OOB in chair. She reports 8/10 left knee pain but states that it is tolerable and she desires discharge home. Denies CP, SOB, Dizziness, nausea, fever, chills or leg numbness. Objective: [] Vital Signs Temp 98.3 F 09/30/17 07:32 Pulse 84 09/30/17 08:20 Resp 18 09/30/17 10:01 BP 155/82 09/30/17 07:32 Pulse Ox 94 09/30/17 08:00 Intake & Output 09/29/17 09/30/17 09/30/17 18:59 06:59 18:59 Intake Total 1444 240 860 Output Total 650 1450 500 Balance 794 -1210 360 Intake: IV Fluids 1044 ABX - CEFAZOLIN 55 LR 989 Oral 400 240 860 Output: Urine 650 1450 500 Laboratory Last Values Hgb 10.8 g/dl (12.0-16.0) L 09/30/17 05:17 Hct 31 % (35-47) L 09/30/17 05:17 Plt Count 188 10^3/ul (150-450) 09/30/17 05:17 MPV 8.5 um3 (7.4-10.4) 09/30/17 05:17 INR (Anticoag Therapy) 1.54 (0.77-1.02) H 09/30/17 05:17 Sodium 137 mmol/L (139-145) L 09/29/17 05:16 Potassium 4.2 mmol/L (3.5-5.0) 09/29/17 05:16 Chloride 101 mmol/L (101-111) 09/29/17 05:16 Carbon Dioxide 27 mmol/L (22-32) 09/29/17 05:16 Anion Gap 9 mmol/L (2-11) 09/29/17 05:16 BUN 13 mg/dL (6-24) 09/29/17 05:16 Creatinine 0.86 mg/dL (0.51-0.95) 09/29/17 05:16 Est GFR ( Amer) 88.4 (>60) 09/29/17 05:16 Est GFR (Non-Af Amer) 68.8 (>60) 09/29/17 05:16 BUN/Creatinine Ratio 15.1 (8-20) 09/29/17 05:16 Glucose 156 mg/dL (70-100) H 09/29/17 05:16 POC Glucose (mg/dL) 138 mg/dL (70-100) H 09/30/17 07:31 Hemoglobin A1c 5.8 % (4.0-5.6) H 09/29/17 05:16 Calcium 8.5 mg/dL (8.6-10.3) L 09/29/17 05:16 General: Well appearing, NAD. LLE: Left knee dressing changed by Dr Bryant this morning without complication. Dressing remains CDI without surrounding erythema or edema. DF/PF intact. DP/PT 2+. Sensation intact distally. BL LE: Calves supple and nontender without erythema, edema or palpable cords. Assessment: []POD 2 sp left total knee arthroplasty 09/28 Dr Bryant PMHx includes history of stroke, hypertension, schizoaffective disorder, anxiety , depression and GERD Plan: []WBAT PT/OT Lovenox, coumadin 2 mg today DC home today
[2017-09-30] MEDS: Enoxaparin(*) 30 MG/0.3 ML SYR SUBCUT SCH (11:52)
[2017-09-30 11:55] VITALS: BP 111/51
[2017-10-01] MEDS ORDERED: Scopolamine PATCH Remove* 1 NOTE MISC PATCH OFF ONE (08:01)
--- NOTE | 2017-10-01 09:32 | DS ---
DISCHARGE SUMMARY: DATE OF ADMISSION: 09/28/17 DATE OF DISCHARGE: 0 09/30/17 DATE OF OPERATION: 09/28/17 PROVIDER: Dr. Guerda Bryant. * (DICTATED BY DAVON HAMILTON) LOSS PREVENTION MANAGER: DAVON Giron. PREOPERATIVE DIAGNOSIS: Severe end-stage degenerative osteoarthritis of the left knee joint. OPERATIVE PROCEDURE: Left total knee arthroplasty. HISTORY: Ms. Box is a 52-year-old female with years of increasingly severe left knee pain. She failed conservative treatment with anti-inflammatories, pain medications, intraarticular injections and physical therapy. Due to continued pain and decreased quality of life, she elected to undergo a left total knee arthroplasty. HOSPITAL COURSE: Ms. Box was admitted to [facility] on 09/28/17. She underwent a left total knee arthroplasty without complication. She recovered briefly in the PACU and then was transferred to the short stay surgical unit in stable condition. During her stay, she was seen by our hospitalist team as well as Physical Therapy and Occupational Therapy. Postop day 1, patient complained of 8/10 knee pain. She was well appearing, in no acute distress. Drain was pulled by Dr. Bryant without complication. Dorsiflexion and plantar flexion intact. Posterior tibial and dorsalis pedis pulse 2+. Sensation intact distally. Calves soft, supple, nontender without erythema, edema, or palpable cords. On postop day 2, patient is well appearing , in no acute distress. Left lower extremity, left knee dressing was changed by Dr. Bryant this morning without complications. Dressing remains clean, dry, and intact without surrounding erythema or edema. Dorsiflexion and plantar flexion are intact. Dorsalis pedis and posterior tibial pulse 2+. Sensation intact distally. Hemoglobin 10.8, hematocrit 31, INR 1.54. Patient seemed to be medically and orthopedically stable for discharge home. MEDICATIONS: Resume home medications. New Medications: 1. Acetaminophen 650 mg p.o. q.4 hours p.r.n. 2. Docusate 100 mg p.o. b.i.d. 3. Percocet 5/325 one to two tablets every 4 to 6 hours p.r.n., max daily dose of 10. 4. Warfarin 2 mg tablets 1 to 3 tabs daily depending on INR draws. DISCHARGE INSTRUCTIONS: Weightbearing as tolerated. Okay to shower after postop day 3, do not submerge that incision. Regular diet. Continue physical therapy and occupational therapy exercises as shown. Visiting home nurse to do wound checks and draw INRs on Mondays and . Coumadin dosing, please take one 2 mg tablet from 09/30/17 through 10/03/17, one 2 mg tablet daily. Her INR will be checked for further dosing instructions on 10/04/17. Pain control Percocet 5/325 one to two tablets every 4 to 6 hours as needed for pain , max of 10 tablets per day. Follow up with Dr. Bryant within 10 to 14 days. DAVON HAMILTON [id number]/CPS #: [id number] MTDD
== END 2017-09-30 14:20 | disposition home health service (06) | DRG 302 ==
LOC: OR 06:19 → SSU 12:58
PROVIDERS: ADMIT Orthopaedic Surgery Adult Reconstructive Orthopaedic Surgery; ATTEND Orthopaedic Surgery Adult Reconstructive Orthopaedic Surgery
PROC: 0SRD069 Replacement of Left Knee Joint with Oxidized Zirconium on Polyethylene Synthetic Substitute, Cemented, Open Approach (ICD-10-PCS; principal; 2017-09-28 08:30)
DX: M17.12 Unilateral primary osteoarthritis, left knee (principal); F33.9 Major depressive disorder, recurrent, unspecified; I10 Essential (primary) hypertension; F41.9 Anxiety disorder, unspecified; K21.9 Gastro-esophageal reflux disease without esophagitis; F25.9 Schizoaffective disorder, unspecified; K59.09 Other constipation; E66.01 Morbid (severe) obesity due to excess calories; G25.81 Restless legs syndrome; E78.5 Hyperlipidemia, unspecified; L57.0 Actinic keratosis; E11.9 Type 2 diabetes mellitus without complications; G89.29 Other chronic pain; M54.9 Dorsalgia, unspecified; M25.762 Osteophyte, left knee; Z79.01 Long term (current) use of anticoagulants; Z86.73 Personal history of transient ischemic attack (TIA), and cerebral infarction without residual deficits; Z90.710 Acquired absence of both cervix and uterus; Z88.5 Allergy status to narcotic agent; Z91.5 Personal history of self-harm; Z68.33 Body mass index [BMI] 33.0-33.9, adult; Z98.51 Tubal ligation status
CPT/HCPCS: 36415; 80048; 83036; 85014; 85018; 85049; 85610; A9270-GY; C1776; G8978-GP-CK; G8979-GP-CI; J0690; J1100; J1170; J1650; J1885; J2250; J2405; J2704; J2710; J3010

== ENCOUNTER 2017-10-04 19:30 | Observation (INO) | payer OTHER ==
[2017-10-04] MEDS ORDERED: HYDROmorphone INJ* 2 MG/ML CARPUJECT SYRINGE IM ONE (20:04)
[2017-10-04] MEDS ORDERED: Promethazine INJ(RESTRICTED)* 25 MG/ML 1 ML VIAL IM ONE (20:05)
--- OUTSIDE RECORDS SUMMARY | 2017-10-04 20:10 | XMS REPORT ---
:1965 External Reference #:[id number] Author Organization [facility] Address [address] [address] Phone [phone] Care Team Providers Name Role Phone Yamilex Gunderson MD Primary Care Physician Unavailable Payers Type Date Identification Numbers Payment Provider Subscriber Commercial Policy Number: [id number] Sury[employer] Box [employer] Number: [id number] [address] PayID: [id number] [place] [address] Commercial Effective: Policy Number: [employer] Sylwia Box 2011 [id number] Medicaid Expires: 2013 PayID: [id number] [address] [address] [place] [address] Commercial Effective: Policy Number: [employer] Box 2011 [id number] Medicaid Expires: 2011 PayID: [id number] [address] [address] [place] [address] Problems Date Description Provider Status Onset: 11/04/2011 Moderate recurrent major depression Yamilex Gunderson M.D. Active Note: ?schizoaffective Onset: 05/08/2014 Impaired fasting glycaemia Yamilex Gunderson M.D. Active Onset: 05/08/2014 Essential hypertension Yamilex Gunderson M.D. Active Onset: 05/08/2014 Gastroesophageal reflux disease Yamilex Gunderson M.D. Active Onset: 05/08/2014 Chronic constipation Yamilex Gunderson M.D. Active Note: med induced Onset: Ischemic stroke Active Note: subacure posterior circulation ( ischemic stroke ): Diagnosis questioned. Discharge summary reports likely 'functional' Onset: 02/14/2013 Tubular adenoma Yamilex Gunderson M.D. Active Onset: 08/12/2017 Localized, primary osteoarthritis Fidel Mejia MD Active Onset: 11/04/2011 Cervical disc disorder Yamilex Gunderson M.D. Inactive Inactive: 05/08/2014 Onset: 04/20/2012 Otitis media Nabila Guzmán N.PDarrell Inactive Inactive: 05/08/2014 Onset: 04/20/2012 Acute maxillary sinusitis Nabila Guzmán N.P. Inactive Inactive: 05/08/2014 Onset: 07/17/2013 Sprain of knee and leg Cal Zhang M.D. Inactive Inactive: 05/08/2014 Onset: 05/08/2014 Hypokalemia Yamilex Gunderson M.D. Inactive Inactive: 09/07/2017 Family History Date Family Member(s) Problem(s) Comments Children 6 Social History Type Date Description Comments Marital Status Lives With Spouse Occupation Unemployed ETOH Use Denies alcohol use Smoking Patient has never smoked Recreational Drug Use Formerly used Marijuana quit 2011 regularly Daily Caffeine Consumes on average 3 cups of regular coffee per day General Hx Text has had 2 female partners and 6 male partners in total ,declines to be tested for HIV , current partner X 3 yrs Allergies, Adverse Reactions, Alerts Date Description Reaction Status Severity Comments 10/14/2011 Morphine and Related Rash active Medications Medication Date Status Form Strength Qnty SIG Indications Ordering Provider Coumadin 09/17 Active Tablets 2mg 90tab take 1-3 s tabs by Manny, mouth at 5 M.D. at night as directed. DO Not Take Before Surgery. Percocet 09/17 Active Tablets 5-325mg 60tab 1-2 by s mouth Manny, every 4-6 M.D. hours as needed for post-op pain Colace 09/17 Active Capsules 100mg 90cap 1 tab by s mouth 2-3 Manny, times a M.D. day as needed Omeprazole 09/[address] 40mg 60cap 1 by mouth K21.9 s every day Toro Gunderson Ranitidine HCL 12/23 Active Capsules 150mg 120ca take one ps capsule by Gunderson, mouth M.D. twice a day Aspirin 11/25 Active Chewtabs 81mg 90uni 1 by mouth ts every Gunderson, day(chewab Toro le) Citalopram 11/29 Active Tablets 10mg 90tab 1 by mouth F32.9 Hussein Garcia Hydrobromide s every day Toro Oden Amlodipine 08/09 Active Tablets 10mg 90tab take one I10 Yamilex Besylate s tablet by Gunderson, mouth M.D. every day Multi Complete Active Capsules daily Unknown /0000 Fiber Active Tablets po bid Unknown 0000 Atorvastatin Active Tablets 20mg 90tab take 1 Yamilex Calcium s tablet at Gunderson, bedtime M.DDarrell Restless Leg Active 10mg one daily Unknown Acid Control 12/22 Hx Tablets 150mg 120ta 1 tab bid K21.9 bs Neptali, - M.D. 12/23 Colace 06/20 Hx Capsules 100mg 30cap 1 by mouth s bid as Neptali, - needed for M.D. 12/21 constipati on Freestyle Lite 12/04 Hx 1Box 2 times a 790.21 Yamilex Test Strips day Neptali, - dx 250.00 M.D. 05/14 and needed Freestyle Lite 02 Hx 100un 2 times 790.21 Yamilex Lancets its daily or Neptali, - as needed M.D. 05/14 Freestyle Lite 02 Hx Device 1unit check 790.21 Yamilex Blood Glucose s fingerstic Neptali, Monitoring System - k daily M.D. 05/14 Potassium Citrate 11/24 Hx Tablets ER 10Meq 90tab take 1 Yamliex ER (1080 mg) s tab daily Neptali, - M.D. 05/14 Percocet 06/08 Hx Tablets 5-325mg 6tabs 1 tabs po q 8 hrs Neptali, - prn pain M.D. 07/27 Fluconazole 05/29 Hx Tablets 100mg 2tabs 1 tab po 112.9 daily x Neptali, - 2days M.D. 05/31 Colace 05/29 Hx Capsules 100mg 30cap 1 tab 564.01 s twice a Gunderson, - day as M.D. 05/14 needed for constipati on Metamucil Smooth 04/06 Hx Powder 58.6% 30uni once a day 564.01 Yamilex Texture Sugar ts Ines Gunderson - M.D. 04/06 Metamucil 04/06 Hx Powder 48.57% 1Pack once a day 564.01 et Neptali - M.D. 04/10 Metamucil Smooth 04/06 Hx Powder 58.6% 30uni once a day 564.01 Yamilex Texture Sugar ts Ines Gunderson - M.D. 07/27 Tramadol HCL 04/05 Hx Tablets 50mg 40tab 1-2 Joshua s tablets po Quique, - q8 hours M.D. 06/08 as needed for pain Ondansetron HCL 03/13 Hx Tablets 4mg 20tab as needed 555.9 s every 12 Gunderson, - hrs as M.D. 04/06 needed for nausea/vom itting Oxycodone/Acetami 02/23 Hx Tablets 5-325mg 90tab 1/2 tab to [facility] s 1 tab Gunderson, - every M.D. 04/06 hours as needed. Potassium 02/20 Hx Tablets 99mg 60tab 1 tab Herlinda /2013 s twice a Colbert, - day M.D. 11/24 Oxycodone/Acetami 02/20 Hx Tablets 2.5-325mg 120ta 1-2 tab 722.91 Yamilex nop bs every 8 Gunderson, - hrs as M.D. 02/23 needed Metformin HCL ER 01/23 Hx Tablets ER 500mg 60tab 1 po bid 250.00 24HR s Neptali, - M.D. 09/19 Accu-Check 01/23 Hx Device 1unit check 1-2 250.00 Yamilex Glucose Monitor s times a Neptali, - day M.DDarrell 05/14 Hydrochlorothiazi 01/23 Hx Tablets 25mg 30tab 1 by mouth 401.9 Herlinda de s every day Jayesh Colbert M.D. 12/04 Accucheck Chem 01/23 Hx 100un check bs 250.00 Herlinda Strips its 1-2 Filemon, - times/day M.D. 12/22 dx 250.00 Lancets Ultra 01/23 Hx Misc 100un check bs 250.00 Herlinda Thin its 1-2times a Filemon, - day Dx M.D. 05/14 250.00 Azithromycin 01/11 Hx Tablets 250mg 6tabs take 2 tab 461.8 Yamilex /2012 on day 1 Neptali, - then 1 tab M.DDarrell 01/23 daily x days Fluticasone 01/11 Hx Suspension 50mcg/Act 1unit 1 squirts 461.8 Yamilex Propionate s each Neptali, Jayesh nostril qd M.DDarrell 07/27 Amoxicillin 12/08 Hx Tablets 875mg 20tab 1 po bid 462 Yamilex s Jayesh Gunderson M.D. 12/20 Ibuprofen 12/08 Hx Tablets 200mg 60tab 2 tabs q 462 Yamilex /2013 s 8h prJayesh Cabrera M.D. 04/06 Metoprolol 10/17 Hx Tablets 25mg 60tab 1 by mouth 401.9 Yamilex Tartrate s twice a Neptali - day MDarrellDDarrell 05/08 Lisinopril 10/04 Hx Tablets 40mg 30tab 1 by mouth 401.9 Herlinda s every day Jayesh Colbert M.D. 05/14 Lisinopril 09/05 Hx Tablets 20mg 30tab 1 po qd 401.9 Yamilex s Jayesh Gnuderson M.D. 10/04 Hydrocodone/Aceta 07/04 Hx Tablets 7.5-325mg 50tab 1 tab qid 724.2 Salvatore munoz s prn Jayesh Marin M.D.,[facility] 10/04 Cyclobenzaprine 07/04 Hx Tablets 10mg 30tab take 1 724.2 Anton s tablet tid Neal Rai, - as needed M.D.,[facility] 10/04 Naprosyn 05/12 Hx Tablets 500mg 60tab twice s daily with Connie, - food prn M.D. 10/04 Augmentin 04/20 Hx Tablets 875-125mg 20tab take one 382.9 s pill po [place] - twice atson, 04/29 daily x 10 N.P. Culturelle 04/20 Hx Capsules 10B Cell 30cap 1 po qd 382.9 Nabila s [place] - atson, 05/04 N.P. Ibuprofen 03/23 Hx Tablets 400mg 20tab 1 by mouth 729.82 s q 12 hr Neptali, - prn M.D. 04/02 Augmentin 03/03 Hx Tablets 875-125mg 20tab 1 tab by 461.9 s mouth Neptali, - twice a M.D. Prednisone 03/03 Hx Tablets 20mg 27tab 3 tab by 461.9 s mouth Neptali, - every day M.D. 03/23 x3 days /2011 then 2 tab daily for 5 days, then 1 tab daily for 5 days then 1/2 tab daily for 5 days Ventolin HFA 03/03 Hx Aerosol 108(90Bas 1unit inhale 2 461.9 e) mcg/ac s puffs by Neptali, - mouth four M.D. 07/04 times day as needed Tessalon Perles 03/03 Hx Capsules 100mg 10cap 1 tab po 461.9 s hs for Neptali, - coughing M.D. 07/04 Vitamin B12 02/21 Hx Tablets 1000mcg 120ta 1 po daily 266.2 bs Neptali, - M.D. 05/14 Flonase 02/21 Hx Suspension 50mcg/Act 1unit 1 squirt 461.9 s intranasal Neptali, - qd as M.D. 07/11 needed for allergies Ropinirole HCL 02/21 Hx Tablets 0.5mg 90tab Take 1 333.94 Herlinda /2012 s Tablet By Filemon, - Mouth At M.D. 05/14 Bedtime Veramyst 11/08 Hx Suspension 27.5mcg/S 1unit one squirt pray s each Neptali, - nostril in M.D. 07/04 morning Amlodipine 11/03 Hx Tablets 5mg 90tab 1 po qd 401.9 Yamilex Bes s Neptali, - M.D. 08/09 Flonase 11/03 Hx Suspension 50mcg/Act 1unit 1 squirt 472.0 s intranasal Neptali, - qd M.D. 11/08 Claritin 11/03 Hx Tablets 10mg 90tab Take 1 472.0 s Tablet By Filemon, - Mouth One M.D. 05/14 Time Daily Mirtazapine 10/13 Hx Tablets 15mg 60tab 1 po daily 296.32 Yamilex /2012 s Neptali, - M.D. 09/19 Trazodone HCL 10/13 Hx Tablets 50mg 60tab 1 po hs 296.32 Yamilex /2012 s Neptali, - M.D. 01/11 Oxycodone/Acetami 10/13 Hx Tablets 2.5-325mg 120ta 2 tab 722.91 Yamilex bs every 6-8 Neptali, - hrs as M.D. 01/11 needed Ondansetron HCL 00 Hx Tablets 4mg 20tab 1 q6h prn Unknown /0000 s - 11/29 Trazodone HCL 00 Hx Tablets 100mg 30tab 1 tab po 780.52 Yamilex /0000 s qhs Neptali, - M.D. 12/04 Oxycodone/Acetami 00 Hx Tablets 5-325mg 60tab 1-2 tabs Unknown nophen /0000 s po q 4-6 - hrs prn 03/23 pain Mirtazapine 00/00 Hx Tablets 15mg 30tab 1 tab po Unknown /0000 s hs - 01/11 Sinus Congestion 0000 Hx Tablets 5-325mg Unknown & Pain /0000 Daytime/ - Nighttime 01/11 Ropinirole HCL 00/00 Hx Tablets 0.5mg 30tab take 1 Unknown /0000 s tablet by - mouth 06/16 Vitamin D-3 Hx Tablets 1000Unit 30tab 1 po qd Unknown /0000 s - 05/14 Potassium 00/ Hx Tablets daily Unknown /0000 - 10/04 Calcium + D 00 Hx Tablets 600-200mg 60tab 1 po qd Unknown /0000 -Unit s - 05/14 Multi For Him 50+ Hx Tablets 1 po qd Unknown / - 10/[address] 20mg 30cap 1 tab 30 Yamilex /0000 s min Jayesh Joya M.D. 09/07 break daily as needed Aspirin Hx Tablets 81mg 1 po qd Unknown /0000 - 05/14 Budesonide 00 Hx Suspension 0.5mg/2ML 180un inhaled Unknown /0000 its bid - 07/27 Budesonide 0000 Hx Suspension 0.5mg/2ML 60uni intranasal Unknown /0000 ts bid ENT - 07/27 Naproxen Hx Tablets 500mg 1 po bid Farenga, /0000 Trinh, PRACTICE SPECIALIST - 05/29 Black Cohosh Hx Capsules 540mg 1 po every Unknown /0000 day for - hot 05/08 flashes Aspir-Low Hx Tablets DR 81mg 1 by mouth Unknown /0000 every day - 11/25 Ropinerole Hx 5mg Unknown /0000 - 06/23 Fiber Laxative Hx Tablets 625mg bid OTC Unknown / - 12/21 Medications Administered in Office Medication Date Status Form Strength Qnty SIG Indications Ordering Provider Triamcinolone 07/27/ Administered Injection Rosa (Kenalog) 2017 MAURILIO Sequeira Inj, Administered Injection Yola Regadenoson, 0.1 2012 Glasscock, MG M.D. Technetium TC 10/25/ Administered Injection Yola 99M Tetrofosmin, 2012 Glasscock, Per Unit Dose Up M.D. To 40 Millicuries Inj, 10/24/ Administered Injection Yola Regadenoson, 0.1 2012 Glasscock, MG M.D. Technetium TC 10/24/ Administered Injection Yola 99M Tetrofosmin, 2012 Glasscock, Per Unit Dose Up M.D. To 40 Millicuries Immunizations CPT Code Status Date Vaccine Lot # [id number] Given 06/23/2016 Influenza Virus Vaccine, Quadrivalent, [place] [id number] [place] [address] Given 05/15/2015 Influenza Virus Vaccine, Quadrivalent, Split, [id number] Preservative Free Q2037 Given 03/20/2014 Fluvirin Im 3Yrs And Older 49166 Given 03/20/2014 Influenza Virus Vaccine, Quadrivalent, Split, [id number] Preservative Free 82091 Given 04/06/2013 Flu Vaccine Split Virus Preservative Free For [id number] Indiv 3Yr Older Q2038 Given 03/23/2012 Fluzone Vaccine [id number] Given 01/12/2012 Tdap - Tetanus/Diptheria/Acellular Pertussis [id number] Refused 07/13/2017 Influenza Virus Vaccine, Quadrivalent, Split, Preservative Free Vital Signs Date Vital Result Comment 09/17/2017 Height 67 inches 5'7" Weight 217.00 lb Heart Rate 85 /min BP Systolic 124 mmHg BP Diastolic 82 mmHg Respiratory Rate 16 /min Body Temperature 97.4 F Pain Level 7 BMI (Body Mass Index) 34.0 kg/m2 09/07/2017 Weight 217.00 lb Heart Rate 90 /min BP Systolic Sitting 100 mmHg BP Diastolic Sitting 70 mmHg O2 % BldC Oximetry 96 % 08/27/2017 Height 67 inches 5'7" Weight 219.00 lb Heart Rate 76 /min BP Systolic 120 mmHg BP Diastolic 80 mmHg BMI (Body Mass Index) 34.3 kg/m2 08/12/2017 Height 67 inches 5'7" Heart Rate 70 /min Body Temperature 97.1 F Pain Level 9 07/27/2017 Height 67 inches 5'7" Weight 219.00 lb Heart Rate 72 /min BP Systolic 130 mmHg BP Diastolic 82 mmHg Respiratory Rate 16 /min Pain Level 8 BMI (Body Mass Index) 34.3 kg/m2 07/13/2017 Weight 219.00 lb Heart Rate 83 /min BP Systolic Sitting 120 mmHg BP Diastolic Sitting 80 mmHg Pain Level 4 O2 % BldC Oximetry 94 % 03/10/2017 Height 67 inches 5'7" Weight 220.00 lb Heart Rate 63 /min BP Systolic Sitting 118 mmHg BP Diastolic Sitting 72 mmHg Body Temperature 96.8 F O2 % BldC Oximetry 95 % BMI (Body Mass Index) 34.5 kg/m2 02/16/2017 Weight 224.00 lb with shoes Heart Rate 67 /min BP Systolic 140 mmHg BP Diastolic 80 mmHg O2 % BldC Oximetry 98 % 12/22/2016 Height 65 inches 5'5" Weight 216.00 lb Heart Rate 67 /min BP Systolic 110 mmHg BP Diastolic 70 mmHg Body Temperature 97.4 F O2 % BldC Oximetry 97 % BMI (Body Mass Index) 35.9 kg/m2 06/23/2016 Height 65 inches 5'5" Weight 215.00 lb Heart Rate 80 /min BP Systolic Sitting 138 mmHg BP Diastolic Sitting 86 mmHg Body Temperature 97.6 F O2 % BldC Oximetry 98 % BMI (Body Mass Index) 35.8 kg/m2 12/23/2015 Weight 212.00 lb Heart Rate 69 /min BP Systolic Sitting 122 mmHg BP Diastolic Sitting 68 mmHg Body Temperature 97.2 F O2 % BldC Oximetry 97 % 08/09/2015 Height 65 inches 5'5" Weight 220.00 lb Heart Rate 68 /min BP Systolic Sitting 120 mmHg BP Diastolic Sitting 86 mmHg Respiratory Rate 16 /min BMI (Body Mass Index) 36.6 kg/m2 07/18/2015 Weight 222.00 lb Heart Rate 72 /min BP Systolic Sitting 124 mmHg BP Diastolic Sitting 80 mmHg Body Temperature 97.1 F O2 % BldC Oximetry 97 % 06/20/2015 Height 65 inches 5'5" Weight 220.00 lb Heart Rate 89 /min BP Systolic Sitting 122 mmHg BP Diastolic Sitting 80 mmHg Respiratory Rate 18 /min Body Temperature 96.2 F O2 % BldC Oximetry 95 % BMI (Body Mass Index) 36.6 kg/m2 06/12/2015 Weight 222.00 lb Heart Rate 68 /min BP Systolic Sitting 132 mmHg BP Diastolic Sitting 86 mmHg Body Temperature 96.0 F O2 % BldC Oximetry 97 % 05/15/2015 Weight 222.25 lb Heart Rate 81 /min BP Systolic Sitting 128 mmHg BP Diastolic Sitting 80 mmHg Body Temperature 97.7 F Pain Level 0 O2 % BldC Oximetry 97 % 05/08/2014 Weight 221.00 lb Heart Rate 70 /min BP Systolic Sitting 124 mmHg BP Diastolic Sitting 72 mmHg 03/20/2014 Weight 223.50 lb Heart Rate 68 /min BP Systolic Standing 122 mmHg BP Diastolic Standing 72 mmHg 12/18/2013 Weight 220.00 lb Heart Rate 80 /min BP Systolic Sitting 128 mmHg BP Diastolic Sitting 78 mmHg 12/04/2013 Weight 221.00 lb Heart Rate 84 /min BP Systolic Sitting 128 mmHg BP Diastolic Sitting 82 mmHg 09/19/2013 Height 65 inches 5'5" Weight 233.00 lb Heart Rate 74 /min BP Systolic Sitting 110 mmHg BP Diastolic Sitting 78 mmHg Body Temperature 97.2 F BMI (Body Mass Index) 38.8 kg/m2 07/27/2013 Weight 220.00 lb Heart Rate 68 /min BP Systolic Sitting 108 mmHg BP Diastolic Sitting 78 mmHg Body Temperature 97.9 F 06/08/2013 Weight 226.00 lb Heart Rate 71 /min BP Systolic Sitting 100 mmHg BP Diastolic Sitting 66 mmHg Body Temperature 99.0 F 05/29/2013 Weight 233.00 lb Heart Rate 76 /min BP Systolic Sitting 104 mmHg BP Diastolic Sitting 66 mmHg 05/26/2013 Weight 229.00 lb Heart Rate 84 /min BP Systolic Sitting 100 mmHg BP Diastolic Sitting 80 mmHg Body Temperature 97.8 F 05/17/2013 Weight 233.00 lb Heart Rate 64 /min BP Systolic Sitting 116 mmHg BP Diastolic Sitting 76 mmHg Body Temperature 97.3 F 04/06/2013 Weight 233.00 lb Heart Rate 76 /min BP Systolic Sitting 120 mmHg BP Diastolic Sitting 82 mmHg Body Temperature 96.2 F 03/13/2013 Weight 236.00 lb Heart Rate 57 /min BP Systolic Sitting 165 mmHg BP Diastolic Sitting 100 mmHg Body Temperature 98.3 F 02/20/2013 Weight 238.75 lb Heart Rate 63 /min BP Systolic Sitting 126 mmHg BP Diastolic Sitting 82 mmHg 01/23/2013 Weight 240.00 lb Heart Rate 60 /min BP Systolic Sitting 140 mmHg BP Diastolic Sitting 88 mmHg 01/11/2013 Weight 246.50 lb Heart Rate 72 /min BP Systolic Sitting 140 mmHg BP Diastolic Sitting 82 mmHg Body Temperature 97.1 F O2 % BldC Oximetry 98 % 12/20/2012 Weight 249.50 lb Heart Rate 57 /min BP Systolic Sitting 140 mmHg BP Diastolic Sitting 79 mmHg 12/08/2012 Weight 250.00 lb Heart Rate 83 /min BP Systolic Sitting 145 mmHg BP Diastolic Sitting 92 mmHg Body Temperature 99.2 F 11/29/2012 Weight 261.50 lb Heart Rate 67 /min BP Systolic Sitting 150 mmHg BP Diastolic Sitting 92 mmHg 11/02/2012 Heart Rate 68 /min pts cuff 67 BP Systolic Sitting 152 mmHg pts cuff 161/93 BP Diastolic Sitting 84 mmHg pts cuff 161/93 10/17/2012 Weight 261.00 lb Heart Rate 68 /min BP Systolic 138 mmHg BP Diastolic 98 mmHg BP Systolic Lying Down 193 mmHg BP Diastolic Lying Down 86 mmHg 10/04/2012 Height 65.5 inches 5'5.50" Weight 258.00 lb Heart Rate 70 /min BP Systolic Sitting 152 mmHg BP Diastolic Sitting 89 mmHg BMI (Body Mass Index) 42.3 kg/m2 09/05/2012 Height 65.5 inches 5'5.50" Weight 261.00 lb Heart Rate 76 /min BP Systolic Sitting 136 mmHg BP Diastolic Sitting 90 mmHg BMI (Body Mass Index) 42.8 kg/m2 08/23/2012 Height 65.5 inches 5'5.50" Weight 259.00 lb Heart Rate 94 /min BP Systolic Sitting 136 mmHg BP Diastolic Sitting 88 mmHg BMI (Body Mass Index) 42.4 kg/m2 08/09/2012 Height 65.5 inches 5'5.50" Weight 259.00 lb Heart Rate 96 /min BP Systolic Sitting 155 mmHg BP Diastolic Sitting 106 mmHg BMI (Body Mass Index) 42.4 kg/m2 07/11/2012 Height 65.5 inches 5'5.50" Weight 262.00 lb Heart Rate 88 /min BP Systolic Sitting 132 mmHg BP Diastolic Sitting 94 mmHg BMI (Body Mass Index) 42.9 kg/m2 07/04/2012 Height 66.25 inches 5'6.25" Weight 263.00 lb Heart Rate 88 /min BP Systolic Sitting 158 mmHg BP Diastolic Sitting 102 mmHg BMI (Body Mass Index) 42.1 kg/m2 04/20/2012 Height 65.25 inches 5'5.25" Weight 256.00 lb Heart Rate 74 /min BP Systolic Sitting 124 mmHg BP Diastolic Sitting 70 mmHg Body Temperature 98.7 F lt ear BMI (Body Mass Index) 42.3 kg/m2 04/06/2012 Height 65.25 inches 5'5.25" Weight 259.00 lb Heart Rate 78 /min BP Systolic Sitting 140 mmHg BP Diastolic Sitting 88 mmHg BMI (Body Mass Index) 42.8 kg/m2 03/23/2012 Height 65.25 inches 5'5.25" Weight 258.00 lb Heart Rate 80 /min BP Systolic Sitting 129 mmHg BP Diastolic Sitting 100 mmHg BMI (Body Mass Index) 42.6 kg/m2 03/03/2012 Height 65.25 inches 5'5.25" Weight 258.00 lb Heart Rate 87 /min BP Systolic Sitting 132 mmHg BP Diastolic Sitting 82 mmHg Body Temperature 97.5 F O2 % BldC Oximetry 97 % BMI (Body Mass Index) 42.6 kg/m2 02/22/2012 Height 65.25 inches 5'5.25" Weight 255.00 lb Heart Rate 100 /min BP Systolic Sitting 130 mmHg BP Diastolic Sitting 82 mmHg Body Temperature 97.0 F O2 % BldC Oximetry 98 % BMI (Body Mass Index) 42.1 kg/m2 01/12/2012 Height 65.25 inches 5'5.25" Weight 254.00 lb Heart Rate 58 /min BP Systolic Sitting 132 mmHg BP Diastolic Sitting 90 mmHg BMI (Body Mass Index) 41.9 kg/m2 11/04/2011 Height 65.25 inches 5'5.25" Weight 244.00 lb Heart Rate 78 /min BP Systolic Sitting 138 mmHg L BP Diastolic Sitting 80 mmHg L BMI (Body Mass Index) 40.3 kg/m2 10/14/2011 Height 65.25 inches 5'5.25" Weight 241.00 lb Heart Rate 76 /min BP Systolic Sitting 142 mmHg BP Diastolic Sitting 90 mmHg BMI (Body Mass Index) 39.8 kg/m2 Results Test Date Test Result H/L Range Note Comp Metabolic Panel 09/14/2017 Sodium 141 mmol/L 133-145 Potassium 3.9 mmol/L 3.5-5.0 Chloride 105 mmol/L 101-111 Co2 Carbon Dioxide 31 mmol/L 22-32 Anion Gap 5 mmol/L 2-11 Glucose 115 mg/dL High 70-100 Blood Urea Nitrogen 15 mg/dL 6-24 Creatinine 0.86 mg/dL 0.51-0.95 BUN/Creatinine Ratio 17.4 8-20 Calcium 9.1 mg/dL 8.6-10.3 Total Protein 6.6 g/dL 6.4-8.9 Albumin 3.9 g/dL 3.2-5.2 Globulin 2.7 g/dL 2-4 Albumin/Globulin Ratio 1.4 1-3 Total Bilirubin 0.90 mg/dL 0.2-1.0 Alkaline Phosphatase 60 U/L 34-104 Alt 16 U/L 7-52 Ast 16 U/L 13-39 Egfr Non- 68.8 >60 Egfr 88.4 >60 1 Lipid Profile (Trig/Chol/HDL) 09/14/2017 Triglycerides 135 mg/dL 2 Cholesterol 144 mg/dL 3 HDL Cholesterol 51.3 mg/dL 4 LDL Cholesterol 66 mg/dL 5 Laboratory test finding 09/14/2017 Hemoglobin A1c (Glyco HGB) 6.0 % High 4.0-5.6 6 Urinalysis Profile 03/02/2017 Urine Color Yellow Urine Appearance Cloudy Urine Specific [place] 1.019 1.010-1.030 Urine pH 5.0 5-9 Urine Urobilinogen Negative Negative Urine Ketones Negative Negative Urine Protein Negative Negative Urine Leukocytes 2+ Negative Urine Blood Negative Negative Urine Nitrite Negative Negative Urine Bilirubin Negative Negative Urine Glucose Negative Negative Urine White Blood Cell 2+(11-20/hpf) Absent Urine Red Blood Cell Absent Absent Urine Bacteria Absent Absent Urine Squamous Epithelial Cell Present Absent Urine Culture And 03/02/2017 Urine Culture SEE RESULT BELOW 7 Sensitivities CBC Auto Diff 03/02/2017 White Blood Count 6.8 10^3/uL 3.5-10.8 Red Blood Count 4.82 10^6/uL 4.0-5.4 Hemoglobin 13.5 g/dL 12.0-16.0 Hematocrit 40 % 35-47 Mean Corpuscular Volume 82 fL 80-97 Mean Corpuscular Hemoglobin 28 pg 27-31 Mean Corpuscular HGB Conc 34 g/dL 31-36 Red Cell Distribution Width 13 % 10.5-15 Platelet Count 240 10^3/uL 150-450 Mean Platelet Volume 9 um3 7.4-10.4 Abs Neutrophils 4.0 10^3/uL 1.5-7.7 Abs Lymphocytes 2.0 10^3/uL 1.0-4.8 Abs Monocytes 0.6 10^3/uL 0-0.8 Abs Eosinophils 0.2 10^3/uL 0-0.6 Abs Basophils 0 10^3/uL 0-0.2 Abs Nucleated RBC 0 10^3/uL Granulocyte % 58.6 % 38-83 Lymphocyte % 30.0 % 25-47 Monocyte % 8.2 % 1-9 Eosinophil % 2.9 % 0-6 Basophil % 0.3 % 0-2 Nucleated Red Blood Cells % 0 Comp Metabolic Panel 03/02/2017 Sodium 140 mmol/L 133-145 Potassium 3.7 mmol/L 3.5-5.0 Chloride 105 mmol/L 101-111 Co2 Carbon Dioxide 29 mmol/L 22-32 Anion Gap 6 mmol/L 2-11 Glucose 140 mg/dL High 70-100 Blood Urea Nitrogen 19 mg/dL 6-24 Creatinine 0.99 mg/dL High 0.51-0.95 BUN/Creatinine Ratio 19.2 8-20 Calcium 9.1 mg/dL 8.6-10.3 Total Protein 7.0 g/dL 6.4-8.9 Albumin 3.9 g/dL 3.2-5.2 Globulin 3.1 g/dL 2-4 Albumin/Globulin Ratio 1.3 1-3 Total Bilirubin 0.60 mg/dL 0.2-1.0 Alkaline Phosphatase 73 U/L 34-104 Alt 16 U/L 7-52 Ast 17 U/L 13-39 Egfr Non- 58.7 >60 Egfr 75.5 >60 8 Laboratory test finding 03/02/2017 Magnesium 2.1 mg/dL 1.9-2.7 Troponin-I (TnI) 0.00 ng/mL <0.04 B-Type Natriuretic Peptide BNP 27 pg/mL 9 Inr/Protime 03/02/2017 Inr 0.94 0.89-1.11 Laboratory test 03/02/2017 Partial Thrombo Time PTT 31.8 seconds 26.0- 36.3 finding Laboratory test 12/22/2016 Hemoglobin A1c 5.7 5-7 finding Lipid Profile 03/27/2016 Triglycerides 122 mg/dL 10 (Trig/Chol/HDL) Cholesterol 151 mg/dL 11 HDL Cholesterol 50.5 mg/dL 12 LDL Cholesterol 76 mg/dL 13 Laboratory test finding 03/27/2016 Hepatitis C Antibody Nonreactive Nonreactive 14 Laboratory test finding 12/23/2015 Hemoglobin A1c 5.7 5-7 Comp Metabolic Panel 07/12/2015 Sodium 139 mmol/L 133-145 Potassium 3.7 mmol/L 3.5-5.0 Chloride 102 mmol/L 101-111 Co2 Carbon Dioxide 30 mmol/L 22-32 Anion Gap 7 mmol/L 2-11 Glucose 146 mg/dL High 70-100 Blood Urea Nitrogen 14 mg/dL 6-24 Creatinine 0.83 mg/dL 0.51-0.95 BUN/Creatinine Ratio 16.9 8-20 Calcium 9.2 mg/dL 8.6-10.3 Total Protein 7.0 g/dL 6.4-8.9 Albumin 4.2 g/dL 3.2-5.2 Globulin 2.8 g/dL 2-4 Albumin/Globulin Ratio 1.5 1-3 Total Bilirubin 0.70 mg/dL 0.2-1.0 Alkaline Phosphatase 72 U/L 34-104 Alt 15 U/L 7-52 Ast 17 U/L 13-39 Egfr Non- 72.2 >60 Egfr 92.8 >60 15 CBC Auto Diff 07/12/2015 White Blood Count 6.7 10^3/uL 3.5-10.8 Red Blood Count 5.10 10^6/uL 4.0-5.4 Hemoglobin 13.9 g/dL 12.0-16.0 Hematocrit 42 % 35-47 Mean Corpuscular Volume 83 fL 80-97 Mean Corpuscular Hemoglobin 27 pg 27-31 Mean Corpuscular HGB Conc 33 g/dL 31-36 Red Cell Distribution Width 13 % 10.5-15 Platelet Count 240 10^3/uL 150-450 Mean Platelet Volume 9 um3 7.4-10.4 Abs Neutrophils 4.5 10^3/uL 1.5-7.7 Abs Lymphocytes 1.6 10^3/uL 1.0-4.8 Abs Monocytes 0.4 10^3/uL 0-0.8 Abs Eosinophils 0.1 10^3/uL 0-0.6 Abs Basophils 0 10^3/uL 0-0.2 Abs Nucleated RBC 0 10^3/uL Granulocyte % 67.6 % 38-83 Lymphocyte % 24.0 % Low 25-47 Monocyte % 6.0 % 1-9 Eosinophil % 2.1 % 0-6 Basophil % 0.3 % 0-2 Nucleated Red Blood Cells % 0 Laboratory test finding 07/12/2015 TSH (Thyroid Stim Horm) 0.37 ?IU/mL 0.34-5.60 Liver Function Panel 07/12/2015 Total Protein 7.0 g/dL 6.4-8.9 Albumin 4.1 g/dL 3.2-5.2 Globulin 2.9 g/dL 2-4 Albumin/Globulin Ratio 1.4 1-3 Total Bilirubin 0.70 mg/dL 0.2-1.0 Direct Bilirubin 0.10 mg/dL 0.03-0.18 Indirect Bilirubin 0.6 mg/dL 0.3-1.0 Alkaline Phosphatase 70 U/L 34-104 Alt 15 U/L 7-52 Ast 17 U/L 13-39 Urinalysis Profile 06/02/2015 Urine Color Yellow Urine Appearance Cloudy Urine Specific [place] 1.009 Low 1.010-1.030 Urine pH 5.0 5-9 Urine Urobilinogen Negative Negative Urine Ketones Negative Negative Urine Protein Negative Negative Urine Leukocytes Negative Negative Urine Blood Negative Negative Urine Nitrite Negative Negative Urine Bilirubin Negative Negative Urine Glucose Negative Negative Laboratory test finding 06/02/2015 Ammonia 23 ?mol/L 16-53 16, 17 Laboratory test finding 06/02/2015 Inr/Protime 1.03 0.89-1.11 18 Partial Thrombo Time PTT 36.3 seconds 26.0-36.3 B-Type Natriuretic Peptide BNP 14 pg/mL 19 Comp Metabolic Panel 06/02/2015 Sodium 137 mmol/L 133-145 Potassium 3.7 mmol/L 3.5-5.0 Chloride 102 mmol/L 101-111 Co2 Carbon Dioxide 31 mmol/L 22-32 Anion Gap 4 mmol/L 2-11 Glucose 122 mg/dL High 70-100 Blood Urea Nitrogen 18 mg/dL 6-24 Creatinine 0.93 mg/dL 0.51-0.95 BUN/Creatinine Ratio 19.4 8-20 Calcium 9.6 mg/dL 8.6-10.3 Total Protein 7.3 g/dL 6.4-8.9 Albumin 4.0 g/dL 3.2-5.2 Globulin 3.3 g/dL 2-4 Albumin/Globulin Ratio 1.2 1-3 Total Bilirubin 0.50 mg/dL 0.2-1.0 Alkaline Phosphatase 59 U/L 34-104 Alt 13 U/L 7-52 Ast 16 U/L 13-39 Egfr Non- 63.3 >60 Egfr 81.4 >60 20 Laboratory test finding 06/02/2015 Magnesium 2.2 mg/dL 1.9-2.7 Lipase 18 U/L 11.0-82.0 Creatine Kinase(CK) 45 U/L 10-223 C Reactive Protein 5.61 mg/L High < 5.00 21 Acetaminophen < 15 g/mL 22 Alcohol < 10 mg/dL <10 Salicylate < 2.50 mg/dL <30 Troponin-I (TnI) 0.01 ng/mL <0.03 23 CKMB 06/02/2015 CKMB ng/mL 0.8 ng/mL 0.6-6.3 Laboratory test finding 06/02/2015 TSH (Thyroid Stim Horm) 0.41 ?IU/mL 0.34-5.60 CBC Auto Diff 06/02/2015 White Blood Count 6.6 10^3/uL 4.8-10.8 Red Blood Count 5.08 10^6/uL 4.0-5.4 Hemoglobin 13.7 g/dL 12.0-16.0 Hematocrit 42 % 35-47 Mean Corpuscular Volume 83 fL 80-97 Mean Corpuscular Hemoglobin 27 pg 27-31 Mean Corpuscular HGB Conc 33 g/dL 31-36 Red Cell Distribution Width 14 % 10.5-15 Platelet Count 235 10^3/uL 150-450 Mean Platelet Volume 9 um3 7.4-10.4 Abs Neutrophils 3.9 10^3/uL 1.5-7.7 Abs Lymphocytes 2.1 10^3/uL 1.0-4.8 Abs Monocytes 0.5 10^3/uL 0-0.8 Abs Eosinophils 0.1 10^3/uL 0-0.6 Abs Basophils 0 10^3/uL 0-0.2 Abs Nucleated RBC 0 10^3/uL Granulocyte % 58.6 % 38-83 Lymphocyte % 31.0 % 25-47 Monocyte % 7.9 % 1-9 Eosinophil % 2.1 % 0-6 Basophil % 0.4 % 0-2 Nucleated Red Blood Cells % 0 Laboratory test finding 06/02/2015 Erythrocyte Sed Rate 27 mm/Hr 0-30 Laboratory test finding 05/15/2015 Hemoglobin A1c 6.1 5-7 Urine Culture And 10/17/2014 Urine Culture (SEE NOTE) 24 Sensitivities Comp Metabolic Panel 05/10/2014 Sodium 139 mmol/L 133-145 25 Potassium 3.9 mmol/L 3.5-5.0 25, 26 Chloride 102 mmol/L 101-111 25 Co2 Carbon Dioxide 30 mmol/L 22-32 25 Anion Gap 7 mmol/L 2-11 25 Glucose 124 mg/dL High 70-100 25 Blood Urea Nitrogen 22 mg/dL 6-24 25 Creatinine 1.03 mg/dL High 0.51-0.95 25 BUN/Creatinine Ratio 21.4 High 8-20 25 Calcium 9.1 mg/dL 8.6-10.3 25 Total Protein 6.9 g/dL 6.4-8.9 25 Albumin 4.1 g/dL 3.2-5.2 25 Globulin 2.8 g/dL 2-4 25 Albumin/Globulin Ratio 1.5 1-3 25 Total Bilirubin 0.60 mg/dL 0.2-1.0 25 Alkaline Phosphatase 64 U/L 34-104 25 Alt 19 U/L 7-52 25 Ast 23 U/L 13-39 25 Egfr Non- 56.5 >60 25 Egfr 72.7 >60 25, 27 Laboratory test finding 05/10/2014 Hemoglobin A1c 5.8 % Less than 6.0 25 , 28 Laboratory test finding 12/18/2013 Potassium 3.5 mmol/L Low 3.7-5.6 Lipid Profile 09/20/2013 Triglycerides 201 mg/dL 29, 30 (Trig/Chol/HDL) Cholesterol 187 mg/dL 29, 31 HDL Cholesterol 46.9 mg/dL 29, 32 LDL Cholesterol 100 mg/dL 29, 33 Laboratory test 09/20/2013 TSH (Thyroid 0.54 IU/mL 0.34-5.60 29, 34 finding Stimulating Horm) Laboratory test 09/19/2013 Hemoglobin A1c 5.7 5-7 finding Basic Metabolic Panel 08/03/2013 Sodium 139 mmol/L 133-145 Potassium 3.0 mmol/L Low 3.5-5.0 Chloride 96 mmol/L Low 101-111 Co2 Carbon Dioxide 33.0 mmol/L High 22-32 Anion Gap 10.0 mmol/L 2-11 Glucose 163 mg/dL High 70-100 Blood Urea Nitrogen 17 mg/dL 6-24 Creatinine 0.90 mg/dL 0.50-1.40 BUN/Creatinine Ratio 18.9 8-20 Calcium 9.1 mg/dL 8.1-9.9 Egfr Non- 66.3 >60 Egfr 85.2 >60 35 Surgical Pathology 06/20/2013 S RUN DATE: <SEE NOTE> Clotest 06/20/2013 Clotest (SEE NOTE) 37 Laboratory test finding 06/08/2013 Glucose Serum 115 Ua Routine 05/26/2013 Ua Specific [place] 1.005 Ua PH 8.0 Ua Color YELLOW Ua Appera CLEAR Ua WBC NEG Ua Protein +30 Ua Glucose NEG Ua Ketones NEG Ua Bilirubin SMALL Ua Urobilinogen NEG Ua Nitrite NEG Ua Occult Blood NEG Laboratory test finding 05/26/2013 Serum Negative Negative 38 Urinalysis 05/26/2013 Urine Color Yellow Urine Appearance Clear Urine Specific [place] 1.016 1.010-1.030 Urine Esterase Negative Negative Urine Nitrate Negative Negative Urine Urobilinogen Negative E.U./dL Negative Urine Protein Negative mg/dL Negative Urine pH 8.0 5-9 Urine Blood Negative Negative Urine Ketones Negative mg/dL Negative Urine Bilirubin Negative Negative Urine Glucose Negative mg/dL Negative Laboratory test finding 05/26/2013 Amylase 39 U/L 20-120 Lipase 19 U/L Low 22-51 C Reactive Protein < 0.5 mg/dL Less than 0.5 Comp Metabolic Panel 05/26/2013 Sodium 139 mmol/L 133-145 Potassium 3.7 mmol/L 3.5-5.0 Chloride 100 mmol/L Low 101-111 Co2 Carbon Dioxide 29.0 mmol/L 22-32 Anion Gap 10.0 mmol/L 2-11 Glucose 169 mg/dL High 70-100 Blood Urea Nitrogen 12 mg/dL 6-24 Creatinine 1.10 mg/dL 0.50-1.40 BUN/Creatinine Ratio 10.9 8-20 Calcium 9.3 mg/dL 8.1-9.9 Total Protein 7.0 g/dL 6.2-8.1 Albumin 4.0 g/dL 3.6-5.4 Globulin 3.0 g/dL 2-4 Albumin/Globulin Ratio 1.3 1-3 Total Bilirubin 1.0 mg/dL 0.4-1.5 Alkaline Phosphatase 49 U/L 30-110 Alt 20 U/L 14-54 Ast 23 U/L 12-42 Egfr Non- 52.6 >60 Egfr 67.6 >60 39 Urine Culture And 05/26/2013 Urine Culture (SEE NOTE) 40 Sensitivities Laboratory test finding 03/17/2013 O P: (SEE NOTE) 41 Giardia/Cryptospor Screen Laboratory test finding 03/17/2013 Stool Culture (SEE NOTE) 42 Stool For Blood 03/17/2013 Stool Occult Blood (SEE NOTE) 43 Laboratory test finding 03/17/2013 E.coli O157:H7 (SEE NOTE) 44 Culture Basic Metabolic Panel 02/20/2013 Sodium 142 mmol/L 133-145 Potassium 3.8 mmol/L 3.5-5.0 Chloride 103 mmol/L 101-111 Co2 Carbon Dioxide 32.0 mmol/L 22-32 Anion Gap 7.0 mmol/L 2-11 Glucose 148 mg/dL High 70-100 Blood Urea Nitrogen 21 mg/dL 6-24 Creatinine 0.80 mg/dL 0.50-1.40 BUN/Creatinine Ratio 26.3 High 8-20 Calcium 9.9 mg/dL 8.1-9.9 Egfr Non- 76.2 >60 Egfr 98.0 >60 45 Laboratory test finding 02/20/2013 Magnesium 1.9 mg/dL 1.7-2.6 Laboratory test finding 01/11/2013 Rapid Strep A negative Laboratory test finding 12/08/2012 Hemoglobin A1c 6.1 5-7 Basic Metabolic Panel 12/06/2012 Sodium 138 mmol/L 133-145 Potassium 3.8 mmol/L 3.5-5.0 Chloride 103 mmol/L 101-111 Co2 Carbon Dioxide 28.0 mmol/L 22-32 Anion Gap 7.0 mmol/L 2-11 Glucose 158 mg/dL High 70-100 Blood Urea Nitrogen 14 mg/dL 6-24 Creatinine 0.70 mg/dL 0.50-1.40 BUN/Creatinine Ratio 20.0 8-20 Calcium 9.1 mg/dL 8.1-9.9 Egfr Non- 88.9 >60 Egfr 114.4 >60 46 Inr/Protime 12/06/2012 Inr 0.96 0.87-0.97 Laboratory test finding 12/06/2012 Activated Partial 34.8 seconds 22.18- 37.18 Thrombo Time CBC Auto Diff 12/06/2012 White Blood Count 6.2 10^3/uL 4.8-10.8 Red Blood Count 4.84 10^6/uL 4.0-5.4 Hemoglobin 13.6 g/dL 12.0-16.0 Hematocrit 40 % 35-47 Mean Corpuscular Volume 82 fL 80-97 Mean Corpuscular Hemoglobin 28 pg 27-31 Mean Corpuscular HGB Conc 34 g/dL 31-36 Red Cell Distribution Width 14 % 10.5-15 Platelet Count 216 10^3/uL 150-450 Mean Platelet Volume 9 um3 7.4-10.4 Abs Neutrophils 4.0 10^3/uL 1.5-7.7 Abs Lymphocytes 1.7 10^3/uL 1.0-4.8 Abs Monocytes 0.4 10^3/uL 0-0.8 Abs Eosinophils 0.2 10^3/uL 0-0.6 Abs Basophils 0 10^3/uL 0-0.2 Abs Nucleated RBC 0 10^3/uL Granulocyte % 64.0 % 38-83 Lymphocyte % 26.9 % 25-47 Monocyte % 6.5 % 1-9 Eosinophil % 2.4 % 0-6 Basophil % 0.2 % 0-2 Nucleated Red Blood Cells % 0 Laboratory test finding 12/06/2012 Erythrocyte Sed Rate 17 mm/Hr High 0- 14 CBC Auto Diff 11/19/2012 White Blood Count 9.0 10^3/uL 4.8-10.8 Red Blood Count 4.89 10^6/uL 4.0-5.4 Hemoglobin 13.3 g/dL 12.0-16.0 Hematocrit 40 % 35-47 Mean Corpuscular Volume 81 fL 80-97 Mean Corpuscular Hemoglobin 27 pg 27-31 Mean Corpuscular HGB Conc 34 g/dL 31-36 Red Cell Distribution Width 14 % 10.5-15 Platelet Count 213 10^3/uL 150-450 Mean Platelet Volume 9 um3 7.4-10.4 Abs Neutrophils 5.6 10^3/uL 1.5-7.7 Abs Lymphocytes 2.6 10^3/uL 1.0-4.8 Abs Monocytes 0.6 10^3/uL 0-0.8 Abs Eosinophils 0.2 10^3/uL 0-0.6 Abs Basophils 0.1 10^3/uL 0-0.2 Abs Nucleated RBC 0.01 10^3/uL Granulocyte % 62.1 % 38-83 Lymphocyte % 28.6 % 25-47 Monocyte % 6.2 % 1-9 Eosinophil % 2.4 % 0-6 Basophil % 0.7 % 0-2 Nucleated Red Blood Cells % 0.2 Comp Metabolic Panel 11/19/2012 Sodium 139 mmol/L 133-145 Potassium 3.6 mmol/L 3.5-5.0 Chloride 105 mmol/L 101-111 Co2 Carbon Dioxide 27.0 mmol/L 22-32 Anion Gap 7.0 mmol/L 2-11 Glucose 126 mg/dL High 70-100 Blood Urea Nitrogen 15 mg/dL 6-24 Creatinine 0.70 mg/dL 0.50-1.40 BUN/Creatinine Ratio 21.4 High 8-20 Calcium 9.1 mg/dL 8.1-9.9 Total Protein 6.2 g/dL 6.2-8.1 Albumin 3.7 g/dL 3.6-5.4 Globulin 2.5 g/dL 2-4 Albumin/Globulin Ratio 1.5 1-3 Total Bilirubin 0.6 mg/dL 0.4-1.5 Alkaline Phosphatase 59 U/L 30-110 Alt 21 U/L 14-54 Ast 16 U/L 12-42 Egfr Non- 88.9 >60 Egfr 114.4 >60 47 Affirm Vaginal Dna Probe 11/18/2012 Affirm Vaginal Dna (SEE NOTE) 48 Probe GC/Chlamydia Amplified Rna 11/18/2012 GC/Chlamydia Rna (SEE NOTE) 49 Urine Culture And 11/18/2012 Urine Culture (SEE NOTE) 50 Sensitivities CBC No Diff 11/10/2012 White Blood Count 8.7 10^3/uL 4.8-10.8 Red Blood Count 4.93 10^6/uL 4.0-5.4 Hemoglobin 13.5 g/dL 12.0-16.0 Hematocrit 40 % 35-47 Mean Corpuscular Volume 81 fL 80-97 Mean Corpuscular Hemoglobin 27 pg 27-31 Mean Corpuscular HGB Conc 34 g/dL 31-36 Red Cell Distribution Width 14 % 10.5-15 Platelet Count 217 10^3/uL 150-450 Mean Platelet Volume 9 um3 7.4-10.4 Inr/Protime 11/10/2012 Inr 0.93 0.87-0.97 Laboratory test finding 11/10/2012 Activated Partial 32.5 seconds 22.18- 37.18 Thrombo Time Basic Metabolic Panel 11/10/2012 Sodium 139 mmol/L 133-145 Potassium 3.9 mmol/L 3.5-5.0 Chloride 102 mmol/L 101-111 Co2 Carbon Dioxide 32.0 mmol/L 22-32 Anion Gap 5.0 mmol/L 2-11 Glucose 112 mg/dL High 70-100 Blood Urea Nitrogen 16 mg/dL 6-24 Creatinine 0.80 mg/dL 0.50-1.40 BUN/Creatinine Ratio 20.0 8-20 Calcium 9.3 mg/dL 8.1-9.9 Egfr Non- 76.2 >60 Egfr 98.0 >60 51 Laboratory test finding 10/05/2012 Vitamin B12 441 pg/mL 180-914 Lipid Profile (Trig/Chol/HDL) 10/05/2012 Triglycerides 159 mg/dL 40-200 Cholesterol 202 mg/dL High Less than 200 HDL Cholesterol 54 mg/dL 40-60 52 Cholesterol/HDL Ratio 3.7 Average 1-4.44 LDL Cholesterol 116.2 mg/dL High Less Than 100 53 Comp Metabolic Panel 10/05/2012 Sodium 143 mmol/L 133-145 Potassium 4.0 mmol/L 3.5-5.0 Chloride 105 mmol/L 101-111 Co2 Carbon Dioxide 30.0 mmol/L 22-32 Anion Gap 8.0 mmol/L 2-11 Glucose 143 mg/dL High 70-100 Blood Urea Nitrogen 13 mg/dL 6-24 Creatinine 0.80 mg/dL 0.50-1.40 BUN/Creatinine Ratio 16.3 8-20 Calcium 9.2 mg/dL 8.1-9.9 Total Protein 5.9 g/dL Low 6.2-8.1 Albumin 3.8 g/dL 3.6-5.4 Globulin 2.1 g/dL 2-4 Albumin/Globulin Ratio 1.8 1-3 Total Bilirubin 0.5 mg/dL 0.4-1.5 Alkaline Phosphatase 69 U/L 30-110 Alt 39 U/L 14-54 Ast 35 U/L 12-42 Egfr Non- 76.2 >60 Egfr 98.0 >60 54 Laboratory test finding 04/06/2012 Potassium 4.0 mmol/L 3.5-5.0 Basic Metabolic Panel 03/23/2012 Sodium 136 mmol/L 135-145 Chloride 99 mmol/L Low 101-111 Co2 (Carbon Dioxide) 32.0 mmol/L 22-32 Anion Gap 5.0 mmol/L 2-11 55 Glucose 126 mg/dL High 70-100 BUN 11 mg/dL 6-24 Creatinine 0.9 mg/dL 0.50-1.40 One Over Creatinine 1.11 BUN/Creatinine Ratio 12.2 8-20 Calcium 8.8 mg/dL 8.1-9.9 eGFR Non- 66.8 > 60 eGFR 85.9 > 60 56 Laboratory test finding 03/23/2012 Potassium 3.3 mmol/L Low 3.5-5.0 Magnesium 2.4 mg/dL 1.7-2.6 Laboratory test finding 02/09/2012 Glucose 128 mg/dL High 70-100 Hemoglobin A1c 6.1 % High Less Than 6.0 57 CBC Auto Diff 01/26/2012 White Blood Count 6.6 CUMM 4.8-10.8 Red Cell Count 4.64 CUMM 4.2-5.4 Hemoglobin 13.0 g/dL 12.0-16.0 Hematocrit 38 % 35-47 Mean Corpuscular Volume 82 um3 79-97 Mean Corpuscular Hemoglob 28 pg 27-31 Mean Corpuscular HGB Cone 34 g/dL 32-36 Redcell Distribution WDTH 13 % 10.5-15 Platelet Count 206 CUMM 150-450 Mean Platelet Volume 8.7 um3 7.4-10.4 Gran % 59.7 % 38-83 Lymph % 29.2 % 20-45 Mononuclear % 7.0 % 1-9 Eosinophil % 3.6 % 0-6 Basophil % 0.5 % 0-2 Abs Lymphs 1.9 1.0-4.8 Abs Mononuclear 0.5 0-0.8 Absolute Neutrophil Count 4.0 1.5-7.7 Abs Eosinophils 0.2 0-0.6 Abs Basophils 0 0-0.2 Vitamin B12 And Folate Serum 01/26/2012 Vitamin B12 287 pg/mL 180-914 Folic Acid > 24.4 NG/ML See Below 58 Laboratory test finding 01/26/2012 Mercury,Whole Blood <1 ng/mL 0-9 59 Lead 01/26/2012 Lead <1 g/dL 0-9 60 Guardian First Name [facility] () [facility] () [facility] () [facility] () Street Address [address] [facility] () Race () 61 Venous/Capillary venous () () Guardian Last Name [place] () Zip Code [address] () Comp Metabolic Panel 01/26/2012 Sodium 138 mmol/L 135-145 Potassium 3.9 mmol/L 3.5-5.0 Chloride 105 mmol/L 101-111 Co2 (Carbon Dioxide) 28.0 mmol/L 22-32 Anion Gap 5.0 mmol/L 2-11 62 Glucose 134 mg/dL High 70-100 BUN 8 mg/dL 6-24 Creatinine 0.8 mg/dL 0.50-1.40 One Over Creatinine 1.25 BUN/Creatinine Ratio 10.0 8-20 Calcium 8.7 mg/dL 8.1-9.9 Total Protein 6.1 GM/DL Low 6.2-8.1 Albumin 3.3 GM/DL Low 3.6-5.4 Globulin 2.8 GM/DL 2-4 Albumin/Globulin Ratio 1.2 1-3 Bilirubin Total 0.7 mg/dL 0.4-1.5 63 Alkaline Phosphatase 69 U/L 30-110 Alt (SGPT) 40 U/L 14-54 Ast (Sgot) 42 U/L 12-42 eGFR Non- 76.6 > 60 eGFR 98.5 > 60 64 Laboratory test finding 12/23/2011 TSH 0.74 MIU/ML 0.34-5.60 Erythrocyte Sed Rate 25 MM/HR High 0-15 Hemoglobin A1c 5.9 % Less Than 6.0 65 1 Because ethnic data is not always readily available, this report includes an eGFR for both -Americans and non- Americans. The National Kidney Disease Education Program (NKDEP) does not endorse the use of the MDRD equation for patients that are not between the ages of 18 and 70, are , have extremes of body size, muscle mass, or nutritional status, or are non- or non-. According to the National Kidney Foundation, irrespective of diagnosis, the stage of the disease is based on the level of kidney function: Stage Description GFR(mL/min/1.73 m(2)) 1 Kidney damage with normal or decreased GFR 90 2 Kidney damage with mild decrease in GFR 60-89 3 Moderate decrease in GFR 30-59 4 Severe decrease in GFR 15-29 5 Kidney failure <15 (or dialysis) 2 Desirable: <150 Borderline High: 150-199 High: 200-499 Very High: >500 3 Desirable: <200 Borderline High: 200-239 High: >239 4 Low: <40 Desirable: 40-60 High: >60 5 Desirable: <100 Near Optimal: 100-129 Borderline High: 130-159 High: 160-189 Very High: >189 6 Therapeutic target for the treatment of diabetes mellitus patients is <7% HBA1C, and in selective patients <6.0%. Please refer to [place] [employer] diabetic care guidelines for further information. 7 SEE RESULT BELOW Name: STACIERIZWANSkye Chacon : [address]: Levon Mora MD Acct: [id number] Unit: [id number] AGE: 51 Location: ED Re03/02/17 SEX: F Status: DEP ER SPEC: [id number] CHRISTINE: 03/02/[address] [facility] [address]: Levon Mora MD REQ: [id number] RECD: 03/02/17 STATUS: REINALDO STANLEY DR: Yamilex Gunderson MD _ SOURCE: URINE SPDESC: ORDERED: Urine Culture Procedure Result Reported Site Urine Culture Final 03/04/17- 1111 ML No growth of clinically significant organisms * ML - MAIN LAB ([facility]) . END OF REPORT * ML=Testing performed at Main Lab DEPARTMENT OF PATHOLOGY, [address] [place] [address] Mahendra Fuller M.D. Director [facility] # [id number] 8 Because ethnic data is not always readily available, this report includes an eGFR for both -Americans and non- Americans. The National Kidney Disease Education Program (NKDEP) does not endorse the use of the MDRD equation for patients that are not between the ages of 18 and 70, are , have extremes of body size, muscle mass, or nutritional status, or are non- or non-. According to the National Kidney Foundation, irrespective of diagnosis, the stage of the disease is based on the level of kidney function: Stage Description GFR(mL/min/1.73 m(2)) 1 Kidney damage with normal or decreased GFR 90 2 Kidney damage with mild decrease in GFR 60-89 3 Moderate decrease in GFR 30-59 4 Severe decrease in GFR 15-29 5 Kidney failure <15 (or dialysis) 9 >100 to <200 pg/mL: likely compensated congestive heart failure (CHF) 200 to 400 pg/mL: likely moderate CHF >400 pg/mL: likely moderate to severe CHF 10 Desirable <150 Borderline high 150-199 High 200-499 Very High >500 11 Desirable <200 Borderline high 200-239 High >239 12 Low <40 Desirable: 40-60 High: >60 13 Desirable: <100 mg/dL Near Optimal: 100-129 mg/dL Borderline High: 130-159 mg/dL High: 160-189 mg/dL Very High: >189 mg/dL 14 FASTING 12 HOUR 15 Because ethnic data is not always readily available, this report includes an eGFR for both -Americans and non- Americans. The National Kidney Disease Education Program (NKDEP) does not endorse the use of the MDRD equation for patients that are not between the ages of 18 and 70, are , have extremes of body size, muscle mass, or nutritional status, or are non- or non-. According to the National Kidney Foundation, irrespective of diagnosis, the stage of the disease is based on the level of kidney function: Stage Description GFR(mL/min/1.73 m(2)) 1 Kidney damage with normal or decreased GFR 90 2 Kidney damage with mild decrease in GFR 60-89 3 Moderate decrease in GFR 30-59 4 Severe decrease in GFR 15-29 5 Kidney failure <15 (or dialysis) 16 SPOKE TO TRUE FOR A PINK TO BE COLLECTED 17 SPOKE TO TRUE FOR A PINK TO BE COLLECTED 18 Effective immediately, due to a laboratory mean normal Protime change, the reference range for the INR has changed. 19 >100 to <200 pg/mL: likely compensated congestive heart failure (CHF) 200 to 400 pg/mL: likely moderate CHF >400 pg/mL: likely moderate to severe CHF 20 Because ethnic data is not always readily available, this report includes an eGFR for both -Americans and non- Americans. The National Kidney Disease Education Program (NKDEP) does not endorse the use of the MDRD equation for patients that are not between the ages of 18 and 70, are , have extremes of body size, muscle mass, or nutritional status, or are non- or non-. According to the National Kidney Foundation, irrespective of diagnosis, the stage of the disease is based on the level of kidney function: Stage Description GFR(mL/min/1.73 m(2)) 1 Kidney damage with normal or decreased GFR 90 2 Kidney damage with mild decrease in GFR 60-89 3 Moderate decrease in GFR 30-59 4 Severe decrease in GFR 15-29 5 Kidney failure <15 (or dialysis) 21 Acute inflammation: >10.00 22 Therapeutic concentration: <50 ug/mL Toxic concentration: >120 ug/mL 23 Reference Range and Interpretation: TnI (ng/mL) Interpretation Less Than 0.03 ng/mL Not supportive of diagnosis of [place] 0.03 - 0.50 ng/mL Indeterminate: suggest serial studies if clinically indicated. Greater than 0.5 ng/mL Consistent with diagnosis of [place] 24 RUN DATE: 10/19/14 [facility] LAB LIVE PAGE 1 RUN TIME: [address] [place] [id number] Specimen Inquiry Name: SYLWIA BOX : [address]: Christ Toth MD Acct: [id number] Unit: [id number] AGE: 49 Location: [facility] Re10/17/14 SEX: F Status: DEP ER SPEC: [id number] CHRISTINE: 10/17/14-1599 DR: Christ Toth MD REQ: [id number] RECD: 10/17/14 STATUS: REINALDO STANLEY DR: Todd Gundersno MD _ [facility] ORDERED: Urine Culture Procedure Result Verified Site Urine Culture Final 10/19/14- 919 ML No Growth Day 2 (<1,000 CFU/mL) * ML - MAIN LAB ([facility]) . END OF REPORT * ML=Testing performed at Main Lab DEPARTMENT OF PATHOLOGY, [address] [place] [address] Mahendra Fuller M.D. Director [facility] # [id number] Potassium reference range changed effective 05/06/14 27 Because ethnic data is not always readily available, this report includes an eGFR for both -Americans and non- Americans. The National Kidney Disease Education Program (NKDEP) does not endorse the use of the MDRD equation for patients that are not between the ages of 18 and 70, are , have extremes of body size, muscle mass, or nutritional status, or are non- or non-. According to the National Kidney Foundation, irrespective of diagnosis, the stage of the disease is based on the level of kidney function: Stage Description GFR(mL/min/1.73 m(2)) 1 Kidney damage with normal or decreased GFR 90 2 Kidney damage with mild decrease in GFR 60-89 3 Moderate decrease in GFR 30-59 4 Severe decrease in GFR 15-29 5 Kidney failure <15 (or dialysis) 28 Therapeutic target for the treatment of diabetes Mellitus patients is <7% HBA1C, and in selective patients <6.0%.Please refer to [place] [employer] Diabetic care guidelines for further information. 29 PT IS FASTING 30 Desirable <150 Borderline high 150-199 High 200-499 Very High >500 31 Desirable <200 Borderline high 200-239 High >239 32 Low <40 Desirable: 40-60 High: >60 33 Desirable <100 Near Optimal 100-129 Borderline high 130-159 High 160-189 Very High >189 34 PT IS FASTING 35 Because ethnic data is not always readily available, this report includes an eGFR for both -Americans and non- Americans. The National Kidney Disease Education Program (NKDEP) does not endorse the use of the MDRD equation for patients that are not between the ages of 18 and 70, are , have extremes of body size, muscle mass, or nutritional status, or are non- or non-. According to the National Kidney Foundation, irrespective of diagnosis, the stage of the disease is based on the level of kidney function: Stage Description GFR(mL/min/1.73 m(2)) 1 Kidney damage with normal or decreased GFR 90 2 Kidney damage with mild decrease in GFR 60-89 3 Moderate decrease in GFR 30-59 4 Severe decrease in GFR 15-29 5 Kidney failure <15 (or dialysis) 36 RUN DATE: 06/22/13 [facility] LAB LIVE PAGE 1 RUN TIME: [address] [place] [address], [place], [place] [address] Specimen Inquiry Name: SYLWIA BOX : [address]: Ariel Au MD Acct: [id number] Unit: [id number] AGE: 48 Location: ENDO Re06/20/13 SEX: F Status: REG REF SPEC: [id number] CHRISTINE: 06/20/13- DR: Ariel Au MD REQ: [id number] RECD: 06/20/13 STATUS: SVEN STANLEY DR: Yamilex Gunderson MD _ ORDERED: LEVEL IV FINAL DIAGNOSIS Colon, 30 cm., biopsy: A. Tubular adenoma. B. No high grade dysplasia or malignancy. CLINICAL HISTORY Nausea, vomiting, weight loss POST-OPERATIVE DIAGNOSIS Hiatal hernia, gastroesophageal reflux disease, weight loss; screening colonoscopy with colon polyp, otherwise normal GROSS DESCRIPTION The specimen is received in formalin labeled Sylwia Box, Sigmoid Polyp at 30 cm., and consists of a 0.5 x 0.5 x 0.3 cm. colón, irregular soft tissue. Submitted entirely, one cassette. Signed (signature on file) Mahendra Fuller MD [id number] END OF REPORT * ML=Testing performed at Main Lab DEPARTMENT OF PATHOLOGY, [facility] [employer] [place], [place] [address] Mahendra Fuller M.D. Director [facility] Permit #[id number] RUN DATE: 06/21/13 [facility] LAB LIVE PAGE 1 RUN TIME: 803 [facility] [employer] [place], [place] [address] Specimen Inquiry Name: SYLWIA BOX : [address]: Ariel Au MD Acct: [id number] Unit: [id number] AGE: 48 Location: ENDO Re06/20/13 SEX: F Status: REG REF SPEC: [id number] CHRISTINE: 06/20/13-[address] [facility] [address]: Ariel Au MD REQ: [id number] RECD: 06/20/13 STATUS: COMP LIZETH DR: Yamilex Gunderson MD _ SOURCE: [facility]: ORDERED: Clotest Procedure Result Verified Site Clotest Final 06/21/13- 0804 ML Clotest Negative END OF REPORT * ML=Testing performed at Main Lab DEPARTMENT OF PATHOLOGY, [address] [place] [address] Mahendra Fuller M.D. Director [facility] Permit #[id number] This test detects intact HCG only and is indicated for the early detection of . 39 Because ethnic data is not always readily available, this report includes an eGFR for both -Americans and non- Americans. The National Kidney Disease Education Program (NKDEP) does not endorse the use of the MDRD equation for patients that are not between the ages of 18 and 70, are , have extremes of body size, muscle mass, or nutritional status, or are non- or non-. According to the National Kidney Foundation, irrespective of diagnosis, the stage of the disease is based on the level of kidney function: Stage Description GFR(mL/min/1.73 m(2)) 1 Kidney damage with normal or decreased GFR 90 2 Kidney damage with mild decrease in GFR 60-89 3 Moderate decrease in GFR 30-59 4 Severe decrease in GFR 15-29 5 Kidney failure <15 (or dialysis) 40 RUN DATE: 05/29/13 [facility] LAB LIVE PAGE 1 RUN TIME: [address] [place] [address] Specimen Inquiry Name: SYLWIA BOX : [address]: Herlinda Colbert MD Acct: [id number] Unit: [id number] AGE: 48 Location: [facility] Re05/26/13 SEX: F Status: REG REF SPEC: [id number] CHRISTINE: 05/26/13-[address]: Herlinda Colbert MD REQ: [id number] RECD: 05/26/13 STATUS: COMP _ SOURCE: URINE SPDESC: ORDERED: Urine Culture QUERIES: Medent Number [id number] Procedure Result Verified Site Urine Culture Final 05/29/13- 0930 ML Organism 1 YEAST [place] Count 1-10,000 (Few) CFU/ML Organism 2 NORMAL NOELLE [place] Count 75-100,000 (Many) CFU/ML END OF REPORT * ML=Testing performed at Main Lab DEPARTMENT OF PATHOLOGY, [facility] [address] [place], [place] [address] Mahendra Fuller M.D. Director [facility] Permit #[id number] RUN DATE: 03/20/13 [facility] LAB LIVE PAGE 1 RUN TIME: 5516 [facility] [employer] [place], [place] [address] Specimen Inquiry Name: SYLWIA BOX : [address]: Yamilex Gunderson MD Acct: [id number] Unit: [id number] AGE: 47 Location: [facility] Re03/17/13 SEX: F Status: REG REF SPEC: [id number] CHRISTINE: 03/17/13-[address] [facility] [address]: Yamilex Gunderson MD REQ: [id number] RECD: 03/20/13 STATUS: RES _ SOURCE: STOOL SPDESC: ORDERED: E.coli O157:H7, Hemoccult, Stool Culture, O P: Giar/Crypt QUERIES: Medent Number [id number] Procedure Result Verified Site E.coli O157:H7 Culture PENDING Stool Culture PENDING Stool Specimen Description Final 03/20/13- 1057 ML Stool Color Brown Stool Form Formed Stool Consistency Firm Shiga Toxin 1 2 PENDING Stool Occult Blood Final 03/20/13- 1121 ML Stool Occult Blood Negative O P: Giardia/Cryptospor Screen Final 03/20/13- 1356 ML Organism 1 Neg Cryptosporidium/Giardia Giardia and cryptosporidium antigen testing performed by enzyme immunoassay. If patient is immunocompromised or has traveled to or is from a developing country, a full ova and parasite exam with microscopic (OPMIC) is recommended. All samples will be held one month in case full ova and parasite testing is requested. Contact the Microbiology Department at [phone]. TEST LIMITATIONS: As with all diagnostic procedures, the results obtained CONTINUED ON NEXT PAGE * ML=Testing performed at Main Lab DEPARTMENT OF PATHOLOGY, [facility] [address] [place], [place] [address] Mahendra Fuller M.D. Director [facility] Permit #[id number] RUN DATE: 03/20/13 [facility] LAB LIVE PAGE 2 RUN TIME: 1356 [facility] [address] [employer] [address] [place], [place] [address] Specimen Inquiry Patient: SLYWIA BOX [id number] (Continued) Specimen: [id number] Collected: 03/17/13 Received: 03/20/13 (Continued) Procedure Result Verified Site O P: Giardia/Cryptospor Screen Final (continued) 03/20/13- 1356 should be used in conjunction with other clinical information available the physician. Negative results can occur in samples containing antigen below lower limits of detection of the assay. The use of colonic washes, aspirates or other diluted sample types has not been established and could affect the performance of the assay. Stool samples contaminated with an oily or particulate base (eg. Barium, mineral oil etc.) could interfere with the test and are not recommended. END OF REPORT * ML=Testing performed at Main Lab DEPARTMENT OF PATHOLOGY, [facility] [address] [place], [place] [address] Mahendra Fuller M.D. Director [facility] Permit #[id number] 42 RUN DATE: 03/23/13 [facility] LAB LIVE PAGE 1 RUN TIME: 921 [facility] [address] [employer] [address] [place], [place] [address] Specimen Inquiry Name: SYLWIA BOX : [address]: Yamilex Gunderson MD Acct: [id number] Unit: [id number] AGE: 47 Location: [facility] Re03/17/13 SEX: F Status: REG REF SPEC: [id number] CHRISTINE: 03/17/13-[address]: Yamilex Gunderson MD REQ: [id number] RECD: 03/20/13 STATUS: COMP _ SOURCE: STOOL SPDESC: ORDERED: E.coli O157:H7, Hemoccult, Stool Culture, O P: Grge/Yanna QUERIES: Medent Number [id number] Procedure Result Verified Site E.coli O157:H7 Culture Final 03/22/13- 0955 ML E. coli 0157 Culture Negative Stool Culture Final 03/23/13- 0921 ML Result No enteric pathogens isolated Testing for Salmonella, Shigella, Aeromonas, Plesiomonas, Yersinia and Campylobacter are included in a Stool Culture. Vibrio spp not routinely tested for in a stool culture. If testing is desired, please request specifically when placing test order. Sensitivities not routinely performed on stool isolates, as antibiotics may prolong the carriage rate of bacteria. Please contact the microbiology lab if sensitivities are required. Stool Specimen Description Final 03/20/13- 1057 ML Stool Color Brown Stool Form Formed Stool Consistency Firm Shiga Toxin 1 2 Final 03/22/13- 1417 ML Organism 1 Negative Shiga Toxin 1 2 CONTINUED ON NEXT PAGE * ML=Testing performed at Main Lab DEPARTMENT OF PATHOLOGY, [facility] [address] [place], [place] [address] Mahendra Fuller M.D. Director [facility] Permit #[id number] RUN DATE: 03/23/13 [facility] LAB LIVE PAGE 2 RUN TIME: 921 [facility] [address] [place], [place] [address] Specimen Inquiry Patient: STACIESYLWIA [id number] (Continued) Specimen: [id number] Collected: 03/17/13-2099 Received: 03/20/13-941 (Continued) Procedure Result Verified Site Shiga Toxin 1 2 Final (continued) 03/22/13- 1417 Immunochromatographic Assay Stool Occult Blood Final 03/20/13- 1121 ML Stool Occult Blood Negative O P: Giardia/Cryptospor Screen Final 03/20/13- 1356 ML Organism 1 Neg Cryptosporidium/Giardia Giardia and cryptosporidium antigen testing performed by enzyme immunoassay. If patient is immunocompromised or has traveled to or is from a developing country, a full ova and parasite exam with microscopic (OPMIC) is recommended. All samples will be held one month in case full ova and parasite testing is requested. Contact the Microbiology Department at [phone]. TEST LIMITATIONS: As with all diagnostic procedures, the results obtained should be used in conjunction with other clinical information available the physician. Negative results can occur in samples containing antigen below lower limits of detection of the assay. The use of colonic washes, aspirates or other diluted sample types has not been established and could affect the performance of the assay. Stool samples contaminated with an oily or particulate base (eg. Barium, mineral oil etc.) could interfere with the test and are not recommended. END OF REPORT * ML=Testing performed at Main Lab DEPARTMENT OF PATHOLOGY, [address] [place] [address] Mahendra Fuller M.D. Director [facility] Permit #[id number] RUN DATE: 03/20/13 [facility] LAB LIVE PAGE 1 RUN TIME: 112[address] [place], [place] [address] Specimen Inquiry Name: SYLWIA BOX : [address]: Yamilex Gunderson MD Acct: [id number] Unit: [id number] AGE: 47 Location: [facility] Re03/17/13 SEX: F Status: REG REF SPEC: [id number] CHRISTINE: 03/17/13-[address]: Yamilex Gunderson MD REQ: [id number] RECD: 03/20/13 STATUS: RES _ SOURCE: STOOL SPDESC: ORDERED: E.coli O157:H7, Hemoccult, Stool Culture, O P: Giar/Crypt Procedure Result Verified Site E.coli O157:H7 Culture PENDING Stool Culture PENDING Stool Specimen Description Final 03/20/13- 1057 ML Stool Color Brown Stool Form Formed Stool Consistency Firm Shiga Toxin 1 2 PENDING Stool Occult Blood Final 03/20/13- 1121 ML Stool Occult Blood Negative O P: Giardia/Cryptospor Screen PENDING END OF REPORT * ML=Testing performed at Main Lab DEPARTMENT OF PATHOLOGY, [facility] [address] [place] [address] Mahendra Fuller M.D. Director [facility] Permit #[id number] RUN DATE: 03/22/13 [facility] LAB LIVE PAGE 1 RUN TIME: 954 [facility] [address] [place] [address] Specimen Inquiry Name: SYLWIA BOX : [address]: Yamilex Gunderson MD Acct: [id number] Unit: [id number] AGE: 47 Location: [facility] Re03/17/13 SEX: F Status: REG REF SPEC: [id number] CHRISTINE: 03/17/13-[address]: Yamilex Gunderson MD REQ: [id number] RECD: 03/20/13 STATUS: RES _ SOURCE: STOOL SPDESC: ORDERED: E.coli O157:H7, Hemoccult, Stool Culture, O P: Giar/Crypt QUERIES: Medent Number [id number] Procedure Result Verified Site E.coli O157:H7 Culture Final 03/22/13- 0955 ML E. coli 0157 Culture Negative Stool Culture Preliminary 03/21/13- 1200 ML <No reportable results for this procedure> Stool Specimen Description Final 03/20/13- 1057 ML Stool Color Brown Stool Form Formed Stool Consistency Firm Shiga Toxin 1 2 PENDING Stool Occult Blood Final 03/20/13- 1121 ML Stool Occult Blood Negative O P: Giardia/Cryptospor Screen Final 03/20/13- 1356 ML Organism 1 Neg Cryptosporidium/Giardia Giardia and cryptosporidium antigen testing performed by enzyme immunoassay. If patient is immunocompromised or has traveled to or is from a developing country, a full ova and parasite exam with microscopic (OPMIC) is recommended. All samples will be held one month in case full ova and parasite testing is requested. Contact the Microbiology Department at [phone]. TEST LIMITATIONS: CONTINUED ON NEXT PAGE * ML=Testing performed at Main Lab DEPARTMENT OF PATHOLOGY, [facility] [address] [place], [place] [address] Mahendra Fuller M.D. Director [facility] Permit #[id number] RUN DATE: 03/22/13 [facility] LAB LIVE PAGE 2 RUN TIME: 954 [facility] [address] [place], [place] [address] Specimen Inquiry Patient: TOBIAS BOXARTUR Chacon [id number] (Continued) Specimen: [id number] Collected: 03/17/13 Received: 03/20/13 (Continued) Procedure Result Verified Site O P: Giardia/Cryptospor Screen Final (continued) 03/20/13- 1356 As with all diagnostic procedures, the results obtained should be used in conjunction with other clinical information available the physician. Negative results can occur in samples containing antigen below lower limits of detection of the assay. The use of colonic washes, aspirates or other diluted sample types has not been established and could affect the performance of the assay. Stool samples contaminated with an oily or particulate base (eg. Barium, mineral oil etc.) could interfere with the test and are not recommended. END OF REPORT * ML=Testing performed at Main Lab DEPARTMENT OF PATHOLOGY, [address] [place] [address] Mahendra Fuller M.D. Director [facility] Permit #[id number] 45 Because ethnic data is not always readily available, this report includes an eGFR for both -Americans and non- Americans. The National Kidney Disease Education Program (NKDEP) does not endorse the use of the MDRD equation for patients that are not between the ages of 18 and 70, are , have extremes of body size, muscle mass, or nutritional status, or are non- or non-. According to the National Kidney Foundation, irrespective of diagnosis, the stage of the disease is based on the level of kidney function: Stage Description GFR(mL/min/1.73 m(2)) 1 Kidney damage with normal or decreased GFR 90 2 Kidney damage with mild decrease in GFR 60-89 3 Moderate decrease in GFR 30-59 4 Severe decrease in GFR 15-29 5 Kidney failure <15 (or dialysis) 46 Because ethnic data is not always readily available, this report includes an eGFR for both -Americans and non- Americans. The National Kidney Disease Education Program (NKDEP) does not endorse the use of the MDRD equation for patients that are not between the ages of 18 and 70, are , have extremes of body size, muscle mass, or nutritional status, or are non- or non-. According to the National Kidney Foundation, irrespective of diagnosis, the stage of the disease is based on the level of kidney function: Stage Description GFR(mL/min/1.73 m(2)) 1 Kidney damage with normal or decreased GFR 90 2 Kidney damage with mild decrease in GFR 60-89 3 Moderate decrease in GFR 30-59 4 Severe decrease in GFR 15-29 5 Kidney failure <15 (or dialysis) 47 Because ethnic data is not always readily available, this report includes an eGFR for both -Americans and non- Americans. The National Kidney Disease Education Program (NKDEP) does not endorse the use of the MDRD equation for patients that are not between the ages of 18 and 70, are , have extremes of body size, muscle mass, or nutritional status, or are non- or non-. According to the National Kidney Foundation, irrespective of diagnosis, the stage of the disease is based on the level of kidney function: Stage Description GFR(mL/min/1.73 m(2)) 1 Kidney damage with normal or decreased GFR 90 2 Kidney damage with mild decrease in GFR 60-89 3 Moderate decrease in GFR 30-59 4 Severe decrease in GFR 15-29 5 Kidney failure <15 (or dialysis) 48 RUN DATE: 11/19/12 [facility] LAB LIVE PAGE 1 RUN TIME: [address] [place] [address] Specimen Inquiry Name: SYLWIA BOX : [address]: Randy Zarate DO Acct: [id number] Unit: [id number] AGE: 47 Location: [facility] Re11/18/12 SEX: F Status: REG ER SPEC: [id number] CHRISTINE: 11/18/12-[address] [facility] [address]: Randy Zarate DO REQ: [id number] RECD: 11/19/12 STATUS: REINALDO MONTENEGRO DR: Yamilex Gunderson MD _ SOURCE: VAGINAL SPDESC: ORDERED: Affirm Procedure Result Verified Site Affirm Vaginal DNA Probe Final 11/19/12- 1430 ML Trichomonas Negative Gardnerella Positive Mayelin Negative The presence of G. vaginalis, although suggestive, is not diagnostic for bacterial vaginosis. Results should be interpreted in conjunction with other clinical and laboratory data available. Women with vaginal discharge should be evaluated for risk factors of cervicitis and pelvic inflammatory disease, toxic shock syndrome (S.aureus), and if present, evaluated for organisms not included in this assay such as N. gonorrhoeae, C. trachomatis, Mobiluncus, Mycoplasma and/or Prevotella. Mixed infections may occur. The performance of this test on patient specimens collected during or immediately after antimicrobial therapy is unknown. The presence or absence of Mayelin species, G. vaginalis or T. vaginalis cannot be used as a test for therapeutic success or failure. END OF REPORT * ML=Testing performed at Main Lab DEPARTMENT OF PATHOLOGY, [facility] [address] [place] [address] Mahendra Fuller M.D. Director [facility] Permit #[id number] RUN DATE: 11/22/12 [facility] LAB LIVE PAGE 1 RUN TIME: 1502 [facility] [address] [facility] [address] [place] [address] Specimen Inquiry Name: SYLWIA BOX : [address]: Randy Zarate DO Acct: [id number] Unit: [id number] AGE: 47 Location: [facility] Re11/18/12 SEX: F Status: REG ER SPEC: [id number] CHRISTINE: 11/18/[address] [facility] [address]: Randy Zarate DO REQ: [id number] RECD: 11/19/12 STATUS: REINALDO STANLEY DR: Yamilex Gunderson MD _ SOURCE: ENDOCERVIX SPDESC: ORDERED: GC/Chlam RNA Procedure Result Verified Site Chlamydia Trachomatis RNA Final 11/22/12- 1459 ML NEGATIVE for Chlamydia trachomatis rRNA GC (N. gonorrhoeae) RNA Final 11/22/12- 1502 ML NEGATIVE for Neisseria gonorrhoeae rRNA A negative result does not preclude the presence of a C. trachomatis or N. gonorrhoeae infection because results are dependent on adequate specimen collection, absence of inhibitors, and sufficient rRNA to be detected. Test results may be affected by improper specimen collection, improper storage, technical error, or specimen mixup. Limitations of the Procedure: The Aptima Combo 2 Assay is not intended for the evaluation of suspected sexual abuse or for other medico-legal indications. For those patients for whom a false positive result may have adverse psychosocial impact, the CDC recommends retesting by a method using an alternate technology. Therapeutic failure or success cannot be determined with the Aptima Combo 2 Assay since nucleic acid may persist following appropriate antimicrobial therapy. Results from the Aptima Combo 2 Assay should be interpreted in conjunction with other laboratory and clinical data available to the clinican. Performance characteristics for detecting C. trachomatis and CONTINUED ON NEXT PAGE * ML=Testing performed at Main Lab DEPARTMENT OF PATHOLOGY, [facility] [address] [place] [address] Mahendra Fuller M.D. Director [facility] Permit #[id number] RUN DATE: 11/22/12 [facility] LAB LIVE PAGE 2 RUN TIME: 1502 [facility] [address] [place], [place] [address] Specimen Inquiry Patient: SYLWIA BOX [id number] (Continued) Specimen: [id number] Collected: 11/18/12 Received: 11/19/12-9 (Continued) Procedure Result Verified Site GC (N. gonorrhoeae) RNA Final (continued) 11/22/12- 1502 N. gonorrhoeae are derived from high prevalence populations. Positive results in low prevalence populations should be interpreted carefully with the understanding that the likelihood of a false positive may be higher than a true positive. END OF REPORT * ML=Testing performed at Main Lab DEPARTMENT OF PATHOLOGY, [facility] [address] [place], [place] [address] Mahendra Fuller M.D. Director [facility] Permit #[id number] 50 RUN DATE: 11/21/12 [facility] LAB LIVE PAGE 1 RUN TIME: 920 [facility] [address] [employer] [address] [place], [place] [address] Specimen Inquiry Name: SYLWIA BOX : [address]: Randy Zarate DO Acct: [id number] Unit: [id number] AGE: 47 Location: [facility] Re11/18/12 SEX: F Status: REG ER SPEC: [id number] CHRISTINE: 11/18/[address] [facility] [address]: Alida Valle MD REQ: [id number] RECD: 11/19/12 STATUS: COMP MONIHR DR: Yamilex Zarate DO _ SOURCE: URINE SPDESC: ORDERED: Urine Culture Procedure Result Verified Site Urine Culture Final 11/21/12- 919 ML Organism 1 NORMAL NOELLE [place] Count 25-50,000 (Moderate) CFU/ML END OF REPORT * ML=Testing performed at Main Lab DEPARTMENT OF PATHOLOGY, [address] [place] [address] Mahendra Fuller M.D. Director [facility] Permit #[id number] 51 Because ethnic data is not always readily available, this report includes an eGFR for both -Americans and non- Americans. The National Kidney Disease Education Program (NKDEP) does not endorse the use of the MDRD equation for patients that are not between the ages of 18 and 70, are , have extremes of body size, muscle mass, or nutritional status, or are non- or non-. According to the National Kidney Foundation, irrespective of diagnosis, the stage of the disease is based on the level of kidney function: Stage Description GFR(mL/min/1.73 m(2)) 1 Kidney damage with normal or decreased GFR 90 2 Kidney damage with mild decrease in GFR 60-89 3 Moderate decrease in GFR 30-59 4 Severe decrease in GFR 15-29 5 Kidney failure <15 (or dialysis) 52 HDL Interpretation: Undesirable: High Risk: Less than 40 MG/DL Desirable: Low Risk: Greater than 60 MG/DL 53 LDL Interpretation: Low Risk Optimal Level: LDL Less than 100 MG/DL Near or Above Optimal: LDL 100-129 MG/DL Borderline High Risk: LDL 130-159 MG/DL High Risk: LDL 160-189 MG/DL Very High Risk: LDL Greater than 189 MG/DL 54 Because ethnic data is not always readily available, this report includes an eGFR for both -Americans and non- Americans. The National Kidney Disease Education Program (NKDEP) does not endorse the use of the MDRD equation for patients that are not between the ages of 18 and 70, are , have extremes of body size, muscle mass, or nutritional status, or are non- or non-. According to the National Kidney Foundation, irrespective of diagnosis, the stage of the disease is based on the level of kidney function: Stage Description GFR(mL/min/1.73 m(2)) 1 Kidney damage with normal or decreased GFR 90 2 Kidney damage with mild decrease in GFR 60-89 3 Moderate decrease in GFR 30-59 4 Severe decrease in GFR 15-29 5 Kidney failure <15 (or dialysis) 55 Anion gap measurement may be of limited value in the presence of any alkalosis, especially in a combined acid base disorder. . 56 Because ethnic data is not always readily available, this report includes an eGFR for both -Americans and non- Americans. The National Kidney Disease Education Program (NKDEP) does not endorse the use of the MDRD equation for patients that are not between the ages of 18 and 70, are , have extremes of body size, muscle mass, or nutritional status, or are non- or non-. According to the National Kidney Foundation, irrespective of diagnosis, the stage of the disease is based on the level of kidney function: Stage Description GFR(mL/min/1.73 m(2)) 1 Kidney damage with normal or decreased GFR 90 2 Kidney damage with mild decrease in GFR 60-89 3 Moderate decrease in GFR 30-59 4 Severe decrease in GFR 15-29 5 Kidney failure <15 (or dialysis) 57 THERAPEUTIC TARGET FOR THE TREATMENT OF DIABETES MELLITUS PATIENTS IS <7% HBA1C, AND IN SELECTIVE PATIENTS <6.0%. PLEASE REFER TO [employer] [place] DIABETIC CARE GUIDELINES FOR FURTHER INFORMATION. 58 Please note: New reference range, effective 06/25/11 NORMAL REFERENCE RANGE: GREATER THAN 4.1 NG/ML 59 Test Performed by: [place] [address] Drawbench Operator: Evgeny Colvin III, M.D. 60 Test Performed by: [place] [address] Drawbench Operator: Evgeny Colvin III, M.D. 61 Test Performed by: [place] [address] Drawbench Operator: Evgeny Colvin III, M.D. 62 Anion gap measurement may be of limited value in the presence of any alkalosis, especially in a combined acid base disorder. . 63 A metabolite of Naproxen, O-desmethylnaproxen, has been shown to interfere with the [place] method for measuring total bilirubin. Samples from patients who have taken Naproxen have shown spurious elevation in total bilirubin levels. 64 Because ethnic data is not always readily available, this report includes an eGFR for both -Americans and non- Americans. The National Kidney Disease Education Program (NKDEP) does not endorse the use of the MDRD equation for patients that are not between the ages of 18 and 70, are , have extremes of body size, muscle mass, or nutritional status, or are non- or non-. According to the [employer], irrespective of diagnosis, the stage of the disease is based on the level of kidney function: Stage Description GFR(mL/min/1.73 m(2)) 1 Kidney damage with normal or decreased GFR 90 2 Kidney damage with mild decrease in GFR 60-89 3 Moderate decrease in GFR 30-59 4 Severe decrease in GFR 15-29 5 Kidney failure <15 (or dialysis) 65 THERAPEUTIC TARGET FOR THE TREATMENT OF DIABETES MELLITUS PATIENTS IS <7% HBA1C, AND IN SELECTIVE PATIENTS <6.0%. PLEASE REFER TO [employer] DIABETIC CARE GUIDELINES FOR FURTHER INFORMATION. Procedures Date CPT Code Description Status 09/07/2017 91588 EKG Tracing & Interpretation Completed 07/27/2017 24765 Inject/Drain Joint/Bursa Major Completed 12/24/2016 Mammogram Completed 10/10/2015 Diabetic Retinal Eye Exam Completed 07/12/2015 Mammogram Completed 05/08/2014 86731 EKG Tracing & Interpretation Completed 06/20/2013 Colonoscopy Completed 11/14/2012 31643 Left Heart Cath. Incl S/I Coronaries, Angio S/I V Gram Completed If Done 11/10/2012 23856 EKG Tracing & Interpretation Completed 10/27/2012 96038 ECHO Transthoracic, Real-Time 2D With Doppler And Color Completed Flow 10/25/2012 21848 Stress Test Completed 10/25/2012 71461 Myocardial Perfusion Imaging Tomographic (Spect) Completed Multiple Studies 10/24/2012 05881 Stress Test Completed 10/24/2012 33164 Myocardial Perfusion Imaging Tomographic (Spect) Completed Multiple Studies 10/17/2012 73727 EKG Tracing & Interpretation Completed 09/05/2012 86602 Screening Vision Test Completed 01/14/2012 Bone Mineral Density Test Completed 01/14/2012 Mammogram Completed Encounters Type Date Location Provider CPT E/M Dx Office Visit 09/07/2017 [facility] Yamilex Gunderson, 22045 Z01.818 2:20p - Sarina Engel M17.12 R73.01 K21.9 E78.5 L57.0 Office Visit 08/27/2017 11:00a [facility] M.D. 09680 M17.12 C.M.A. M25.562 M25.462 Office Visit 08/12/2017 10:45a [facility] [place] [address] M17.12 C.M.A. Office Visit 07/27/2017 11:00a [facility] [place] [address] M17.12 C.M.A. M25.462 S83.282A M25.562 Office Visit 07/13/2017 10:50a [facility] Yamilex Gunderson, 30857 S63.621A - Sarina Engel Office Visit 03/10/2017 11:20a [facility] Hussein Oden, 50895 H61.21 - Sarina Engel Office Visit 02/16/2017 2:40p [facility] Hussein Oden, 81302 M79.672 - Sarina Engel Office Visit 12/22/2016 9:50a [facility] Yamilex Gunderson 95673 R73.01 - Sarina Engel G47.00 K21.9 M25.512 F25.9 Z12.31 Office Visit 06/23/2016 11:10a [facility] - Yamilex Gunderson M.D. 39501 Z23 Sarina Z00.00 Z12.31 F25.9 L57.0 Office Visit 12/23/2015 10:50a [facility] Yamilex Gunderson 99495 M25.562 - S[place] Engel R73.01 E78.5 Z11.59 Office Visit 08/09/2015 10:30a [facility] Radha Cabrera M.D. 35829 R42 R51 M62.838 Office Visit 07/18/2015 10:50a [facility] Yamilex Gunderson, 79344 I69.998 - Sage Engel S13.9xxA R42 B00.89 Office Visit 06/20/2015 1:00p [facility] Yamilex Gunderson, 40513 Z00.00 - Sage Engel Z12.31 J06.9 Office Visit 06/12/2015 9:50a [facility] Yamilex Gunderson M.D. 15570 I67.9 - Sage R42 E13.311 Office Visit 06/02/2015 9:13a [facility] Radha Cabrera M.D. 87482 R42 R53.1 H53.9 R51 Office Visit 05/15/2015 1:50p [facility] Yamilex Gunderson 38363 R73.01 - Sage Engel I10 R53.83 Z23 K58.9 G47.00 Office Visit 05/08/2014 2:10p [facility] Yamilex Gunderson 67898 V72.84 - Sage Engel 618.3 790.21 530.81 401.1 278.00 276.8 564.01 311 Office Visit 03/20/2014 2:50p [facility] Yamilex Gunderson M.D. 68282 401.1 - [place] 276.8 530.81 790.21 789.03 V04.81 Office Visit 12/18/2013 2:30p [facility] Yamilex Gunderson M.D. 55850 401.1 - [place] 311 787.01 276.8 Office Visit 12/04/2013 12:10p [facility] Yamilex Gunderson M.D. 12763 401.1 - [place] 311 790.21 719.46 787.01 251.1 Office Visit 09/19/2013 2:10p [facility] Yamilex Gunderson 60419 250.00 - [place] Engel 783.1 401.1 Office Visit 07/27/2013 11:50a [facility] Yamilex Gundersno, 50590 784.2 - [place] Engel Office Visit 06/08/2013 2:10p [facility] Yamilex Gunderson, 90423 250.02 - [place] Engel 338.11 626.2 Office Visit 05/29/2013 10:50a [facility] Yamilex Gunderson 24338 564.01 - [place] Engel 789.07 112.9 Office Visit 05/26/2013 1:40p [facility] Herlinda Colbert M.D. 08205 789.07 - [place] 535.50 788.1 Office Visit 05/17/2013 2:30p [facility] Yamilex Gunderson 28772 789.07 - [place] Engel Office Visit 05/08/2013 4:00p [facility] Zhang M.D. 28712 844.9 C.M.ADarrell Office Visit 04/06/2013 1:50p [facility] Yamilex Gunderson, 73694 564.01 - [place] Engel v04.81 Office Visit 04/05/2013 10:00a [facility] STEPHANIE Vaz 16449 844.9 C.M.A. Office Visit 03/13/2013 3:10p [facility] Yamilex Gunderson 96543 555.9 - [place] Engel Office Visit 02/20/2013 11:50a [facility] Yamilex Gunderson 46922 715.09 - [place] Engel 250.02 401.1 Office Visit 01/23/2013 10:50a [facility] Yamilex Gunderson 30377 250.00 - [place] Engel 401.9 Office Visit 01/11/2013 10:10a [facility] Yamilex Gunderson M.D. 05373 461.8 - [place] 784.1 Office Visit 12/20/2012 11:50a [facility] Yamilex Gunderson 30082 V72.83 - [place] Engel 401.1 626.8 278.01 715.09 790.21 311 Office Visit 12/08/2012 2:10p [facility] Yamilex Gunderson, 50772 790.21 - [place] Engel 462 Office Visit 11/29/2012 1:50p [facility] Yamilex Gunderson M.D. 12160 627.1 - [place] 401.9 311 Office Visit 11/23/2012 [facility] 53279 786.50 Kori Engel V58.41 Office Visit 11/10/2012 2:00p [facility], 11135 786.50 Kori Engel Office Visit 11/02/2012 1:00p [facility] Nurse Visit C 45336 401.9 - [place] Office Visit 10/17/2012 1:50p [facility] Yamilex Gunderson 65383 401.9 - [place] Engel 786.59 782.7 394.9 Office Visit 10/04/2012 12:10p [facility] Yamilex Gunderson M.D. 28276 401.9 - [place] 706.2 Office Visit 09/05/2012 1:50p [facility] Yamilex Gunderson M.D. 37995 401.9 - [place] 367.1 784.0 790.21 278.01 Office Visit 08/23/2012 2:00p [facility] Nurse Visit [place] 60101 401.9 - [place] Office Visit 08/09/2012 10:10a [facility] Yamilex Gunderson 13073 715.09 - [place] Engel 724.2 401.9 Office Visit 07/11/2012 1:50p [facility] Yamilex Gunderson 04373 724.2 - [place] Engel Office Visit 07/04/2012 3:00p [facility] Anton Rai, 37088 724.2 - [place] Engel,FACP Office Visit 05/12/2012 11:00a [facility] 8[address] 716.96 C.M.A. Office Visit 04/20/2012 1:00p [facility] Nabila 64600 382.9 - [place], N.Yu 461.0 Office Visit 04/06/2012 10:50a [facility] Yamilex Gunderson M.D. 81427 727.1 - [place] 719.47 578.1 787.91 276.8 Office Visit 03/23/2012 2:10p [facility] Yamilex Gunderson 30494 729.82 - [place] Engel V04.81 Office Visit 03/03/2012 12:10p [facility] Yamilex Gunderson M.D. 30728 461.9 - [place] 466.0 Office Visit 02/22/2012 9:50a [facility] Yamilex Gunderson M.D. 41494 461.9 - [place] 401.9 266.2 530.81 790.21 333.94 Office Visit 01/26/2012 10:45a [facility] Yamilex Gunderson M.D. 55771 401.9 - [place] 715.09 Office Visit 01/12/2012 10:00a [facility] Yamilex Gunderson M.D. 63970 V77.1 - [place] 278.00 V76.19 788.30 788.33 702.0 782.0 781.91 V72.31 V06.1 Office Visit 11/04/2011 1:30p [facility] Portia Gunderson M.D. 49690 401.9 - [place] 472.0 Office Visit 10/15/2011 10:15a [facility] [place], 96558 729.1 Kori Engel 723.1 724.2 Office Visit 10/14/2011 10:00a [facility] Yamilex Gunderson 89425 296.32 - [place] Engel 722.91 796.2 Plan of Care Future Appointment(s):12/08/2017 1:00 pm - Yamilex Gunderson M.D. at [facility] - Uwlxxvdso88/27/2018 9:00 am - DAVON Beasley at [facility]/28/2017 9:00 am - Thaddeus Tuttle PA-C at [facility]A.09/28/2017 9:00 am - DAVON Auguste at [facility].A.09/28/2017 9:00 am - Guerda Bryant M.D. at [facility].A.10/08/2017 9:00 am - [facility]
--- NOTE | 2017-10-04 20:38 | RAD ---
INDICATION: Knee pain. Postoperative COMPARISON: September 28, 2017 TECHNIQUE: AP and lateral views were obtained. FINDINGS: There is right knee arthroplasty. There is no evidence of hardware failure. There is diffuse soft tissue swelling compatible with recent surgery. There is a joint effusion.. IMPRESSION: POSTOPERATIVE RIGHT KNEE ARTHROPLASTY.
[2017-10-04] MEDS ORDERED: PROCHLORPERAZINE INJ 5 MG/ML 2 ML VIAL IM ONE (21:00)
[2017-10-04] MEDS ORDERED: Ketorolac INJ* 60 MG/2 ML VIAL ONE (21:32)
[2017-10-04] MEDS ORDERED: Ketorolac INJ* 60 MG/2 ML VIAL IM ONE (21:37)
[2017-10-04] MEDS ORDERED: oxyCODONE/Acetamin 5/325 MG* TAB PO PRN (22:54)
[2017-10-04 23:24] LABS: ABS Basophils 0 10^3/ul (0-0.2); ABS Eosinophils 0.1 10^3/ul (0-0.6); ABS Monocytes 0.8 10^3/ul (0-0.8); ABS Neutrophils 6.8 10^3/ul (1.5-7.7); ABS Nucleated RBC 0 10^3/ul; Hematocrit 31 % (35-47); Hemoglobin 10.6 g/dl (12.0-16.0); Lymphocyte % 11.4 % (25-47); Mean Corpuscular HGB Conc 34 g/dl (31-36); Mean Corpuscular Hemoglobin 28 pg (27-31); Mean Corpuscular Volume 82 fL (80-97); Mean Platelet Volume 8.2 um3 (7.4-10.4); Nucleated Red Blood Cells % 0; Platelet Count 252 10^3/ul (150-450); Red Blood Count 3.82 10^6/ul (4.0-5.4); Red Cell Distribution Width 14 % (10.5-15); White Blood Count 8.7 10^3/ul (3.5-10.8)
[2017-10-04 23:37] LABS: INR 2.86 (0.77-1.02)
[2017-10-04 23:40] LABS: EGFR Non-African American 85.8 (>60)
[2017-10-05] MEDS: oxyCODONE/Acetamin 5/325 MG* TAB PO PRN ×6 (00:23→22:28)
[2017-10-05] MEDS ORDERED: HYDROmorphone INJ* 2 MG/ML CARPUJECT SYRINGE IM PRN (00:38)
[2017-10-05] MEDS: Ondansetron TAB* 4 MG PO PRN ×2 (00:42→14:36)
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
[2017-10-05] MEDS: Omeprazole CAP* 20 MG PO SCH (06:23)
--- NOTE | 2017-10-05 07:47 | RAD ---
Indication: Left leg edema, status post total knee replacement and fall. Duplex Doppler sonography of the deep venous system of the left lower extremity deep venous system was performed. Bilaterally the common femoral veins appear patent and compressible. Left proximal greater saphenous vein, proximal deep femoral vein, femoral vein, and popliteal vein appear patent and compressible. The calf vessels are not visualized. Complex fluid collection in the distal thigh measuring 9.0 x 2.5 x 4.0 cm. IMPRESSION: NO DEFINITE DVT IS THROMBOSIS IDENTIFIED ALTHOUGH THE CALF VESSELS ARE NOT EVALUATED. COMPLEX FLUID COLLECTION IN THE DISTAL THIGH MEASURING 9 X 2.5 X 4.0 CM. HEMATOMA IS NOT EXCLUDED.
[2017-10-05] MEDS: amLODIPine TAB* 5 MG PO SCH (09:32)
[2017-10-05] MEDS: Docusate CAP* 100 MG PO SCH ×2 (09:32→20:46)
[2017-10-05] MEDS: Aspirin EC TAB* 81 MG TAB.EC PO SCH (09:32)
[2017-10-05] MEDS: Atorvastatin* 20 MG TAB PO SCH (09:32)
[2017-10-05] MEDS: Citalopram TAB* 10 MG PO SCH (09:32)
[2017-10-05] MEDS: Multivitamins/Minerals TAB PO SCH (09:32)
[2017-10-05] MEDS: Famotidine TAB* 20 MG PO SCH ×2 (09:32→20:46)
[2017-10-05 14:04] LABS: INR 2.96 (0.77-1.02)
--- NOTE | 2017-10-05 14:17 | RAD ---
INDICATION: Fall. Left leg pain COMPARISON: None TECHNIQUE: AP and lateral views were obtained. FINDINGS: There is no acute fracture. There is left knee arthroplasty. The prosthesis appears well seated.. IMPRESSION: NO ACUTE BONY FINDINGS.
--- NOTE | 2017-10-05 14:18 | RAD ---
INDICATION: Fall. Pelvic pain COMPARISON: None TECHNIQUE: A single AP view of the pelvis is submitted. FINDINGS: Osseous structures: There is no acute pelvic fracture SI joints and symphysis: Intact Soft tissues: There are multiple phleboliths Other: The hips articulate normally. There is minor osteoarthritic change. IMPRESSION: NO ACUTE PELVIC FRACTURE
[2017-10-05] MEDS ORDERED: Warfarin TAB(*) 2 MG PO SCH (17:00)
--- NOTE | 2017-10-05 22:14 | HP ---
ADMISSION HISTORY AND PHYSICAL: DATE OF ADMISSION: 10/04/17 ATTENDING PROVIDER: Domingo Harrell MD * (DICTATED BY DAVON HAMILTON) CHIEF COMPLAINT: Left lower extremity pain status post left knee arthroplasty. HISTORY OF PRESENT ILLNESS: Ms. Box is a 52-year-old female who was brought in by ambulance to [facility] with left knee pain. She is status post left total knee arthroplasty by Dr. Guerda Bryant on 09/28/17 which was uncomplicated. The patient was discharged home on 09/30/17 and reportedly the following day at home, she fell while transferring. She reported to the nursing staff that she tripped over some sort of clutter on the floor, though when I spoke with her, she is unsure what happened. She states that while she was transferring, if her foot got plucked under, if she tripped, she fell to the floor. She is unsure how she landed or if she injured anything. She states that with the help of her granddaughter, she was able to get up to her feet, proceeded to lie in bed. She did not have immediate severe pain in her knee or elsewhere in the left lower extremity, though she states that she did have some pain. She does not feel that she hit her head or injured any other body part. She did not lose consciousness prior to her fall. She did not have any chest pain, shortness of breath, dizziness. Since the fall, she has been at home. She has been ambulating through with pain of the left lower extremity. She has been continuing with her physical therapy exercises, though she states that they have been painful. Pain is currently a 6/10 in severity and it radiates between the left knee, the left thigh, and the left hip. PAST MEDICAL HISTORY: Hypertension, history of stroke, depression, anxiety, GERD, schizoaffective disorder. PAST SURGICAL HISTORY: Left foot corn removal, hysterectomy, bladder and colon tucks. MEDICATIONS: Are as in chart. The patient's Coumadin has been held since yesterday when it was measured at 2.86, today it is measured at 2.96. ALLERGIES: Include MORPHINE. SOCIAL HISTORY: The patient states that she has been living alone taking care of herself. She does have a 75-year-old roommate who is not helpful in helping to take care of her. She does not use drugs, alcohol, or smoke. REVIEW OF SYSTEMS: General: The patient denies any fever or chills. Cardiac: The patient denies any chest pain or irregular beats. Respiratory: The patient denies any shortness of breath or cough. GI: The patient denies any abdominal upset, diarrhea or constipation. : The patient denies any burning with urination. Left lower extremity, the patient confirms pain of her left lower extremity from the knee to the hip. She also has chronic low back pain as well as chronic neck pain which is unchanged after her fall. Neuro: Sensation is intact throughout all of her extremities. She has had surgery on her left foot , which limits the sensation of the dorsum of her foot, but it is unchanged. Hematology: The patient has no history of blood clot. She does have a remote history of stroke. Skin: The patient has bruising which was noticed when she came into the hospital of her inner left thigh. PHYSICAL EXAMINATION GENERAL: The patient is well appearing, in no acute distress, lying in bed. VITAL SIGNS: Temperature 98.8, pulse 80, respiratory rate 14, oxygen saturation 99%, blood pressure 145/99. HEENT: Head and Face: Head is normocephalic, atraumatic. No noted ecchymosis or hematoma. The patient's extraocular movements are intact. LUNGS: Clear to auscultation bilaterally. HEART: S1, S2. No murmur. ABDOMEN: Soft, nontender. EXTREMITIES: Incision of her left lower extremity is clean, dry, and intact without surrounding erythema. She has had some yellow bruising about the knee, mild effusion of the knee. Her range of motion is roughly 0 to 45 degrees with pain limiting further flexion. Her thigh is soft. Medially, she has presence of a hematoma centrally with purple discoloration spreading out into yellow. This area is not indurated. It is not fluctuant, it is tender to palpation. Her left lower extremity from knee, thigh, hip, and pelvis are all tender to palpation without any point tenderness. The patient expresses pain with log roll of her left lower extremity, though she does not react in any severe pain. Her range of motion is intact at the hip, though she again expresses pain with movement. Dorsiflexion and plantarflexion of her left ankle are intact. Right lower extremity with good range of motion at ankle, knee, hip. Nontender to palpation throughout the right lower extremity. Negative for pain with log roll. No tenderness over the pelvis. Moves upper extremities well without any tenderness or any pain. NEUROLOGIC: Sensation is intact to light touch throughout bilateral lower extremities over the dorsum of the left great toe. The patient does have some decreased sensation which is baseline from a previous surgery. VASCULAR: Capillary refill is less than 2 seconds distally on bilateral lower extremities. Dorsalis pedis pulses 2+. Calves supple, nontender without erythema, edema, or palpable cords. DIAGNOSTIC LABS: Hemoglobin 10.6, hematocrit 31, white blood cell count 8.7. INR on 10/04/17 was 2.86 and on 10/05/17, is 2.96. Sodium 138. X-ray reports; left knee x-ray interpretation: Postop knee arthroplasty findings; there is right knee arthroplasty. There is no evidence of hardware failure. There is diffuse soft tissue swelling compatible with recent surgery. There is a joint effusion. Left femur x-ray, no acute bony findings. Pelvis x-ray, no acute pelvic or hip fracture. Venous Doppler study: No definitive DVT thrombosis identified, although the calf muscles were not evaluated. Complex fluid collection in the distal thigh measuring 9 x 2.5 x 4 cm, hematoma is not excluded. ASSESSMENT: Left leg pain and difficulty taking care of herself at home status post left total knee arthroplasty on 09/28/17. PLAN: The patient was admitted to [facility] for observation. She will work with physical therapy and occupational therapy today to her ability. She is aware that if she is having any severe pain, to report this, so that we may further work up etiology of pain. leasing property manager is assisting with rehab placement when medically ready. We will consult hospitalist services. The patient has past medical history of stroke, hypertension, and diabetes. DAVON HAMILTON [id number]/[facility] #: [id number] MTDDallin
--- NOTE | 2017-10-05 22:23 | CONS ---
CC: Dr. Bryant; Dr. Gunderson * CONSULTATION REPORT: DATE OF CONSULT: 10/05/17 PRIMARY CARE PROVIDER: Dr. Gunderson. ORTHOPEDIC SURGEON: Dr. Bryant. REASON FOR CONSULTATION: The consultation was requested by Dr. Bryant in regards to hypertension management. CHIEF COMPLAINT: Left knee pain. HISTORY OF PRESENT ILLNESS: Sylwia Box is a 52-year-old female who has history of schizoaffective disorder, gastroesophageal reflux disease, history of CVA in the past with the question if it was functional, depression and anxiety, who had left total knee replacement performed by Dr. Bryant on 09/28/17 and was discharged home on 09/30/17. The patient stated that she fell the same day, hitting her left knee and since then, she had been having pain in the left hip and the left knee area. She stated that she stayed at home over the weekend , but the pain became more unbearable and she presented today for admission. She was to be admitted to the hospital by the orthopedic service with option for short term rehabilitation at discharge. PAST MEDICAL HISTORY: Includes: 1. Hypertension. 2. History of impaired glucose tolerance. 3. History of depression. 4. History of schizoaffective disorder. 5. History of CVA with question if that was functional. 6. History of osteoarthritis. 7. History of restless leg syndrome. 8. Chronic back pain. 9. History of obesity. 10. History of tubal ligation. 11. History of D and C. 12. History of foot surgery. 13. Status post hysterectomy. 14. Left total knee replacement that occurred on 09/28/17. MEDICATIONS: Current medications at home include: 1. Oxycodone with acetaminophen 5/325 mg 1 tablet every 6 hours p.r.n. 2. Norvasc 10 mg daily. 3. Coumadin 2 mg daily. 4. Zantac 150 mg b.i.d. 5. Omeprazole 20 mg daily. 6. Multivitamin 1 tablet daily. 7. Fiber supplement 500 mg daily. 8. Colace 100 mg b.i.d. 9. Celexa 10 mg daily. 10. Lipitor 20 mg daily. 11. Aspirin 81 mg daily. 12. Acetaminophen on a p.r.n. basis. ALLERGIES: Include MORPHINE. FAMILY HISTORY: Unknown as per the patient. SOCIAL HISTORY: The patient denies any tobacco, alcohol, or drug use. She delegated both of her children, her daughter, Yelitza and her son, Bo, to be the surrogate decision maker. REVIEW OF SYSTEMS: Positive for left knee and hip pain. Positive for ecchymotic area on the left thigh area posteriorly. All the remaining 12 systems were reviewed with the patient and were otherwise negative. PHYSICAL EXAM: Blood pressure of 145/99, heart rate of 80 and regular, respiratory rate 14, oxygen saturation 99% on room air, temperature 98.8. General: The patient is a very pleasant 52-year-old female, who is rather poor historian, but in no acute distress. Alert, awake, oriented x3. HEENT: Head: Atraumatic, normocephalic. Eyes: Pupils are equal, reactive to light and accommodation. Oropharynx: Clear. Mucosa moist. Neck: Supple. No JVD. No bruits bilaterally. Cardiovascular: Regular rate and rhythm. No murmur. Respiratory: Clear to auscultation bilaterally. Abdomen: Soft, nontender. Bowel sounds are present in all 4 quadrants. Extremities: There is mild left leg edema. There is no clubbing or cyanosis. Pulses are +2 bilaterally. On evaluation of the left leg furthermore, the patient has a hematoma posteriorly on the left thigh with some ecchymotic area that is resolving. Hematoma is approximately 10 cm in diameter. The left knee is sutured with no evidence of wound dehiscence. No evidence of wound infection. Psychiatric evaluation, rather poor historian. I suspect that the patient is at the patient's baseline. There is no evidence of depression. There is slight anxiety noted. DIAGNOSTIC STUDIES/LAB DATA: Current laboratory data showed INR of 2.96. On 10/04/17, sodium of 138, potassium of 3.6, chloride 99, carbon dioxide 31, BUN 11, creatinine 0.71. White blood cell count of 8.7, hemoglobin of 10.6, hematocrit of 31, and platelets of 252. Pelvic x-ray, impression: "No acute pelvic fracture." Femur x-ray on the left: "No acute bony findings." Venous Doppler studies were grossly negative for DVT on the left leg. There was also complex fluid collection in the distal thigh measuring 9 x 2.5 x 4 cm, possibility of hematoma was questioned. Knee x-ray on the left, impression: "Postoperative left knee arthroplasty." ASSESSMENT AND PLAN: 1. Left knee and hip pain as well as left hip hematoma in the patient status post fall on the day of her discharge from left total knee replacement. At this point, placement to short term rehabilitation facility is going to be arranged by case management assistant and orthopedic service. 2. In regards to the patient's current anticoagulation, her INR is therapeutic and her Coumadin doses will be adjusted by her orthopedic service. 3. In regards to the patient's hypertension, her systolic pressures are at 145 , which is acceptable in this patient who still is in a fair amount of postoperative pain. At this point, I will continue the patient's Norvasc and not change any of her medications. 4. For gastroesophageal reflux disease, omeprazole is going to be continued. Thank you very much for allowing our service to see your patient in consultation. We will see the patient on a p.r.n. basis. TIME SPENT: Approximately 55 minutes were spent on the patient's consult. [id number]/[facility] #: [id number] GIOVANA
[2017-10-06] MEDS ORDERED: HYDROmorphone INJ* 2 MG/ML CARPUJECT SYRINGE IV PRN (01:08)
[2017-10-06] MEDS: oxyCODONE/Acetamin 5/325 MG* TAB PO PRN ×5 (05:05→22:43)
[2017-10-06 05:37] LABS: Hematocrit 31 % (35-47); Hemoglobin 10.3 g/dl (12.0-16.0); Mean Corpuscular HGB Conc 34 g/dl (31-36); Mean Corpuscular Hemoglobin 28 pg (27-31); Mean Corpuscular Volume 83 fL (80-97); Mean Platelet Volume 8.2 um3 (7.4-10.4); Platelet Count 264 10^3/ul (150-450); Red Blood Count 3.66 10^6/ul (4.0-5.4); Red Cell Distribution Width 14 % (10.5-15); White Blood Count 6.1 10^3/ul (3.5-10.8)
[2017-10-06 05:41] LABS: ABS Basophils 0 10^3/ul (0-0.2); ABS Eosinophils 0.2 10^3/ul (0-0.6); ABS Lymphocytes 1.7 10^3/ul (1.0-4.8); ABS Monocytes 0.6 10^3/ul (0-0.8); ABS Neutrophils 3.7 10^3/ul (1.5-7.7); ABS Nucleated RBC 0 10^3/ul; Eosinophil % 3.8 % (0-6); Lymphocyte % 27.9 % (25-47); Nucleated Red Blood Cells % 0.1
[2017-10-06 05:43] LABS: INR 1.77 (0.77-1.02)
[2017-10-06 05:53] LABS: EGFR Non-African American 84.4 (>60)
[2017-10-06] MEDS: Omeprazole CAP* 20 MG PO SCH (07:40)
[2017-10-06] MEDS: Cyclobenzaprine TAB* 10 MG PO PRN ×3 (07:42→22:43)
[2017-10-06] MEDS: Docusate CAP* 100 MG PO SCH ×2 (09:01→19:59)
[2017-10-06] MEDS: Multivitamins/Minerals TAB PO SCH (09:01)
[2017-10-06] MEDS: Famotidine TAB* 20 MG PO SCH ×2 (09:01→19:59)
[2017-10-06] MEDS: Aspirin EC TAB* 81 MG TAB.EC PO SCH (09:01)
[2017-10-06] MEDS: amLODIPine TAB* 5 MG PO SCH (09:01)
[2017-10-06] MEDS: Atorvastatin* 20 MG TAB PO SCH (09:01)
[2017-10-06] MEDS: Citalopram TAB* 10 MG PO SCH (09:01)
--- NOTE | 2017-10-06 10:48 | PN ---
Progress Note - Progress Note Date of Service: 10/06/17 SOAP: Subjective: []Patient seen at bedside. Her pain is 3-4/10 while lying still in bed, 7/10 with movement of her LLE. Denies LLE numbness. Seen by Dr Bryant this morning as well, patient complained of thigh muscle spasm. Objective: [] Vital Signs Temp 98.2 F 10/06/17 07:20 Pulse 74 10/06/17 07:20 Resp 18 10/06/17 10:33 BP 112/78 10/06/17 07:20 Pulse Ox 98 10/06/17 07:20 Intake & Output 10/05/17 10/06/17 10/06/17 18:59 06:59 18:59 Intake Total 2696 1822 Output Total 1125 2750 250 Balance 1571 -928 -250 Intake: IV Fluids 2126 742 LR 1155 742 Oral 570 1080 Output: Urine 1125 2750 250 Other: Estimated Void Medium # Bowel Movements 0 Laboratory Last Values WBC 6.1 10^3/ul (3.5-10.8) 10/06/17 05:05 RBC 3.66 10^6/ul (4.0-5.4) L 10/06/17 05:05 Hgb 10.3 g/dl (12.0-16.0) L 10/06/17 05:05 Hct 31 % (35-47) L 10/06/17 05:05 MCV 83 fL (80-97) 10/06/17 05:05 MCH 28 pg (27-31) 10/06/17 05:05 MCHC 34 g/dl (31-36) 10/06/17 05:05 RDW 14 % (10.5-15) 10/06/17 05:05 Plt Count 264 10^3/ul (150-450) 10/06/17 05:05 MPV 8.2 um3 (7.4-10.4) 10/06/17 05:05 Neut % (Auto) 59.0 % (38-83) 10/06/17 05:05 Lymph % (Auto) 27.9 % (25-47) 10/06/17 05:05 [place] % (Auto) 9.0 % (0-7) H 10/06/17 05:05 Eos % (Auto) 3.8 % (0-6) 10/06/17 05:05 Baso % (Auto) 0.3 % (0-2) 10/06/17 05:05 Absolute Neuts (auto) 3.7 10^3/ul (1.5-7.7) 10/06/17 05:05 Absolute Lymphs (auto) 1.7 10^3/ul (1.0-4.8) 10/06/17 05:05 Absolute Monos (auto) 0.6 10^3/ul (0-0.8) 10/06/17 05:05 Absolute Eos (auto) 0.2 10^3/ul (0-0.6) 10/06/17 05:05 Absolute Basos (auto) 0 10^3/ul (0-0.2) 10/06/17 05:05 Absolute Nucleated RBC 0 10^3/ul 10/06/17 05:05 Nucleated RBC % 0.1 10/06/17 05:05 INR (Anticoag Therapy) 1.77 (0.77-1.02) H 10/06/17 05:06 Sodium 140 mmol/L (139-145) 10/06/17 05:06 Potassium 3.6 mmol/L (3.5-5.0) 10/06/17 05:06 Chloride 102 mmol/L (101-111) 10/06/17 05:06 Carbon Dioxide 32 mmol/L (22-32) 10/06/17 05:06 Anion Gap 6 mmol/L (2-11) 10/06/17 05:06 BUN 8 mg/dL (6-24) 10/06/17 05:06 Creatinine 0.72 mg/dL (0.51-0.95) 10/06/17 05:06 Est GFR ( Amer) 108.6 (>60) 10/06/17 05:06 Est GFR (Non-Af Amer) 84.4 (>60) 10/06/17 05:06 BUN/Creatinine Ratio 11.1 (8-20) 10/06/17 05:06 Glucose 131 mg/dL (70-100) H 10/06/17 05:06 Calcium 8.6 mg/dL (8.6-10.3) 10/06/17 05:06 General: Well appearing, NAD LLE: Knee surgical incision CDI without erythema or edema. Knee mild effusion, medial thigh with resolving hematoma purple centrally, yellow peripherally, mildly tender to palpation without induration or fluctuance. left hip/ pelvis with mild tenderness to palpation no obvious marisa deformity, no bruising, no abrasions, no lacerations. knee active ROM 0-90 degrees, Hip active ROM 0-90 degrees. DF/PF intact. Sensation intact and capillary refill less than two seconds distally. DP 2+ BL LE: Calves supple and nontender without erythema, edema or palpable cords. Assessment: []SP left total knee replacement with continued pain, fall at home and inability to care for self at home Plan: []WBAT PT/OT Rehab placement pending, discussed today with ANUSHA
[2017-10-06] MEDS ORDERED: Warfarin TAB(*) 2 MG PO ONE (19:00)
[2017-10-07] MEDS: oxyCODONE/Acetamin 5/325 MG* TAB PO PRN ×3 (04:58→13:15)
[2017-10-07 05:29] LABS: ABS Basophils 0 10^3/ul (0-0.2); ABS Eosinophils 0.2 10^3/ul (0-0.6); ABS Lymphocytes 1.3 10^3/ul (1.0-4.8); ABS Monocytes 0.5 10^3/ul (0-0.8); ABS Neutrophils 3.2 10^3/ul (1.5-7.7); ABS Nucleated RBC 0 10^3/ul; Eosinophil % 4.4 % (0-6); Hematocrit 28 % (35-47); Hemoglobin 9.3 g/dl (12.0-16.0); Lymphocyte % 25.3 % (25-47); Mean Corpuscular HGB Conc 34 g/dl (31-36); Mean Corpuscular Hemoglobin 28 pg (27-31); Mean Corpuscular Volume 83 fL (80-97); Nucleated Red Blood Cells % 0.1; Platelet Count 244 10^3/ul (150-450); Red Blood Count 3.34 10^6/ul (4.0-5.4); Red Cell Distribution Width 14 % (10.5-15); White Blood Count 5.3 10^3/ul (3.5-10.8)
[2017-10-07 05:42] LABS: EGFR Non-African American 85.8 (>60)
[2017-10-07] MEDS: Omeprazole CAP* 20 MG PO SCH (07:15)
[2017-10-07] MEDS: Cyclobenzaprine TAB* 10 MG PO PRN (07:15)
[2017-10-07] MEDS: Atorvastatin* 20 MG TAB PO SCH (08:56)
[2017-10-07] MEDS: Citalopram TAB* 10 MG PO SCH (08:57)
[2017-10-07] MEDS: Docusate CAP* 100 MG PO SCH (08:57)
[2017-10-07] MEDS: Famotidine TAB* 20 MG PO SCH (08:57)
[2017-10-07] MEDS: Multivitamins/Minerals TAB PO SCH (08:57)
[2017-10-07] MEDS: Aspirin EC TAB* 81 MG TAB.EC PO SCH (08:57)
[2017-10-07] MEDS: amLODIPine TAB* 5 MG PO SCH (08:57)
[2017-10-07 11:09] LABS: INR 1.27 (0.77-1.02)
--- NOTE | 2017-10-07 11:48 | PN ---
Progress Note - Progress Note Date of Service: 10/07/17 SOAP: Subjective: []Patient seen at bedside. She is feeling well today. Confirms decreased LLE pain and improved confidence with PT. Denies CP, SOB, Dizziness, nausea. Objective: [] General: Well appearing, NAD LLE: Knee surgical incision CDI without erythema or edema. Knee without erythema or tenderness. hematoma of medial thigh much improved, yellow in color, very mildly tender to palpation without induration or fluctuance. left hip/ pelvis tenderness improved from yesterday, log roll no longer described as painful. knee active ROM 0-90 degrees, Hip active ROM 0-90 degrees. DF/PF intact. Sensation intact and capillary refill less than two seconds distally. DP 2+ BL LE: Calves supple and nontender without erythema, edema or palpable cords. Vital Signs Temp 98.3 F 10/07/17 07:20 Pulse 68 10/07/17 07:20 Resp 18 10/07/17 10:32 BP 153/78 10/07/17 07:20 Pulse Ox 97 10/07/17 07:20 Intake & Output 10/06/17 10/07/17 10/07/17 18:59 06:59 18:59 Intake Total 680 1160 465 Output Total 1750 600 400 Balance -1070 560 65 Intake: Oral 680 1160 465 Output: Urine 1750 600 400 Other: # Bowel Movements 1 Estimated Stool Amount Large Laboratory Last Values WBC 5.3 10^3/ul (3.5-10.8) 10/07/17 04:59 RBC 3.34 10^6/ul (4.0-5.4) L 10/07/17 04:59 Hgb 9.3 g/dl (12.0-16.0) L 10/07/17 04:59 Hct 28 % (35-47) L 10/07/17 04:59 MCV 83 fL (80-97) 10/07/17 04:59 MCH 28 pg (27-31) 10/07/17 04:59 MCHC 34 g/dl (31-36) 10/07/17 04:59 RDW 14 % (10.5-15) 10/07/17 04:59 Plt Count 244 10^3/ul (150-450) 10/07/17 04:59 MPV 8.0 um3 (7.4-10.4) 10/07/17 04:59 Neut % (Auto) 60.7 % (38-83) 10/07/17 04:59 Lymph % (Auto) 25.3 % (25-47) 10/07/17 04:59 [place] % (Auto) 9.2 % (0-7) H 10/07/17 04:59 Eos % (Auto) 4.4 % (0-6) 10/07/17 04:59 Baso % (Auto) 0.4 % (0-2) 10/07/17 04:59 Absolute Neuts (auto) 3.2 10^3/ul (1.5-7.7) 10/07/17 04:59 Absolute Lymphs (auto) 1.3 10^3/ul (1.0-4.8) 10/07/17 04:59 Absolute Monos (auto) 0.5 10^3/ul (0-0.8) 10/07/17 04:59 Absolute Eos (auto) 0.2 10^3/ul (0-0.6) 10/07/17 04:59 Absolute Basos (auto) 0 10^3/ul (0-0.2) 10/07/17 04:59 Absolute Nucleated RBC 0 10^3/ul 10/07/17 04:59 Nucleated RBC % 0.1 10/07/17 04:59 INR (Anticoag Therapy) 1.27 (0.77-1.02) H 10/07/17 10:51 Sodium 141 mmol/L (139-145) 10/07/17 04:59 Potassium 3.7 mmol/L (3.5-5.0) 10/07/17 04:59 Chloride 104 mmol/L (101-111) 10/07/17 04:59 Carbon Dioxide 32 mmol/L (22-32) 10/07/17 04:59 Anion Gap 5 mmol/L (2-11) 10/07/17 04:59 BUN 11 mg/dL (6-24) 10/07/17 04:59 Creatinine 0.71 mg/dL (0.51-0.95) 10/07/17 04:59 Est GFR ( Amer) 110.3 (>60) 10/07/17 04:59 Est GFR (Non-Af Amer) 85.8 (>60) 10/07/17 04:59 BUN/Creatinine Ratio 15.5 (8-20) 10/07/17 04:59 Glucose 142 mg/dL (70-100) H 10/07/17 04:59 Calcium 8.4 mg/dL (8.6-10.3) L 10/07/17 04:59 Assessment: []SP left total knee replacement with continued pain, fall at home and inability to care for self at home Plan: []WBAT PT/OT Rehab placement to [facility] today coumadin 4 mg today
[2017-10-07 12:03] VITALS: BP 150/75
--- NOTE | 2017-10-07 13:23 | DS ---
DISCHARGE SUMMARY: DATE OF ADMISSION: 10/04/17 DATE OF DISCHARGE: 10/07/17 PROVIDER: Domingo Harrell MD* (dictated by DAVON Beasley). CHIEF COMPLAINT: Left lower extremity pain, status post left knee arthroplasty and fall at home. HISTORY: Ms. Box is a 52-year-old female who was brought in by ambulance to [facility] with left knee pain on 10/04/17. She is status post left total arthroplasty by Dr. Guerda Bryant on 09/28/17, which was uncomplicated. The patient was discharged on 09/30/17 to home and subsequently fell while transferring on 10/01/17. She states she did not come into the emergency room until 10/04/17 when she had continued pain at the left lower extremity and felt unable to care for herself at home. HOSPITAL COURSE: The patient was admitted to [facility] on 10/04/17 due to left lower extremity pain and status post left total knee arthroplasty. X-ray of the right knee revealed a postoperative right knee arthroplasty with no evidence of hardware failure, did indicate diffuse soft tissue swelling compatible with recent surgery and a joint effusion. Venous Doppler showed no definitive DVT, showed a complex fluid collection in the thigh measuring 9 x 2.5 x 4.0 cm without exclusion of a hematoma. Femur x-ray with no acute bony findings and pelvis x-ray with no acute pelvic fracture by Radiology. During her stay, the patient's left knee incision appeared clean, dry and intact without any erythema or discharge. She had a small effusion of her left knee. Upon presentation, her range of motion of her left knee was limited to 0 to 45 degrees due to pain, primarily spasm in her left thigh. This range of motion improved to 0 to 90 degrees with work with Physical Therapy and the patient had much improvement of pain. She also complained on presentation of pain on palpation of her left hip and pelvis as well as with log roll, though this was much improved by the time of her discharge with very minimal tenderness and no pain with log roll. The patient was able to participate well with physical therapy. Her left medial thigh did have presence of a purple and yellow hematoma, which is continuing to resolve, now yellow in coloration and with decreased tenderness. From the time of presentation, it is not indurated, it is not hot, it is not fluctuant. The patient remained afebrile throughout her stay and her vital signs remained stable. Day of discharge vitals: Temperature 98.3, pulse 63, respiratory rate 17, oxygen saturation 97%, blood pressure 153/78. Laboratory studies on day of discharge: Hemoglobin 9.3, hematocrit 28. INR 1.27. The patient seemed to be medically and orthopedically stable for discharge back to [facility]. DISCHARGE MEDICATIONS: Resume home medications includin. Amlodipine 10 mg p.o. daily. 2. Acetaminophen 650 mg p.o. q.4 hours. 3. Docusate 100 mg p.o. b.i.d. 4. Warfarin 2 mg. The patient may take between 0 and 3 tablets daily depending on INR draws. 5. Methylcellulose 500 mg tablet p.o. daily. 6. Aspirin 81 mg p.o. daily. 7. Multivitamins 1 tab daily. 8. Ranitidine 150 mg p.o. b.i.d. 9. Omeprazole 20 mg p.o. daily. 10. Citalopram 10 mg p.o. daily. 11. Atorvastatin 20 mg p.o. daily. 12. Percocet 5/325 one to two tabs every 4 to 6 hours as needed for pain, max daily dose of 10. 13. Cyclobenzaprine 10 mg p.o. t.i.d. p.r.n. muscle spasm, max daily dose of 3. DISCHARGE PLAN: The patient will be discharged to [facility]. It is okay to shower, do not submerge the wound. Please call the orthopedic office for increased drainage, redness, increased pain, or increased fever, or any new symptoms. Go to the emergency room with shortness of breath or chest pain. Continue physical therapy and occupational therapy exercises as shown. Nursing to do wound checks and provide daily dry sterile dressing change. The patient will also need INR draws on Mondays and to check her INR. Her last INR was 1.27. Recommendation for Coumadin dosing will be 4 mg of Coumadin on 11/19 and then 2 mg of Coumadin daily from 10/08/17 to 10/10/17 and then recheck on 10/11/17. Please note that the patient has been quite sensitive to Coumadin and may require smaller dosages. Pain control with Percocet 5/325 one to two tabs by mouth every 4 to 6 hours as needed for pain, max daily dose of 10 ; cyclobenzaprine 10 mg t.i.d. p.r.n. for muscle spasms, max daily dose of 3. Follow up with Dr. Bryant within 10 to 14 days postoperatively, call for an appointment. New medications including Percocet and cyclobenzaprine have been sent to [facility] in [place]. DAVON HAMILTON [id number]/[facility] #: [id number] [facility]
== END 2017-10-07 13:41 ==
LOC: ED 19:30 → SSU 22:54
PROVIDERS: ADMIT Orthopaedic Surgery; ATTEND Orthopaedic Surgery
DX: M79.662 Pain in left lower leg (principal); Z96.652 Presence of left artificial knee joint; S70.12XA Contusion of left thigh, initial encounter; Z79.82 Long term (current) use of aspirin; I10 Essential (primary) hypertension; M25.562 Pain in left knee; Z87.891 Personal history of nicotine dependence; W19.XXXA Unspecified fall, initial encounter; Y92.9 Unspecified place or not applicable; Z79.01 Long term (current) use of anticoagulants; Z86.39 Personal history of other endocrine, nutritional and metabolic disease; Z86.59 Personal history of other mental and behavioral disorders; Z86.73 Personal history of transient ischemic attack (TIA), and cerebral infarction without residual deficits; Z90.710 Acquired absence of both cervix and uterus; K21.9 Gastro-esophageal reflux disease without esophagitis
CPT/HCPCS: 36415; 72170; 80048; 85025; 85610; 99284; A9270-GY; G0378; G8978-GP-CJ; G8978-GP-CK; G8979-GP-CI; J0780; J1170; J1885; J2550

== ENCOUNTER 2018-11-11 12:08 | Emergency (ER) | payer OTHER ==
[2018-11-11 12:21] VITALS: BP 144/87
[2018-11-11] MEDS ORDERED: Tetan/Diph/Pertus SYR(Tdap)* 0.5 ML SYR(BOOSTRIX) use SYR IM ONE (12:49)
--- NOTE | 2018-11-11 12:59 | UC ---
Skin Complaint HPI - HPI Summary HPI Summary: PATIENT WAS CLEANING THINGS OUT UNDERNEATH HER PORCH 5 DAYS AGO. STATES THERE IS A LOT OF WOOD AND STRAY MATERIALS IN THE AREA. NOT SURE IF SHE WAS BITTEN BY SOMETHING OR SCRAPED BY SOMETHING. SINCE THEN SHE HAS NOTICED AN INCREASING AREA OF ITCHINESS, PAIN AND REDNESS ON HER LEFT LATERAL ANKLE. NO FEVER. UNKNOWN DATE OF LAST TETANUS. - History of Current Complaint Chief Complaint: UCSkin Time Seen by Provider: 11/11/18 12:21 Stated Complaint: LEFT ANKLE COMPLAINT Hx Obtained From: Patient Hx Last Menstrual Period: 2 yrs ago Onset/Duration: Gradual Onset, Lasting Days, Still Present Timing: Constant Onset Severity: Moderate Current Severity: Moderate Pain Intensity: 2 Pain Scale Used: 0-10 Numeric Location: Discrete - left lateral ankle Character: Pruritus, Pain, Redness Aggravating Factor(s): Touch Alleviating Factor(s): Nothing Associated Signs & Symptoms: Positive: Rash, Tenderness - Allergy/Home Medications Allergies/Adverse Reactions: Allergies Allergy/AdvReac Type Severity Reaction Status Date / Time morphine Allergy Rash Verified 07/25/18 12:57 PMH/Surg Hx/FS Hx/Imm Hx Endocrine History: Diabetes Cardiovascular History: Hypertension - Surgical History Surgical History: Yes Surgery Procedure, Year, and Place: complete hysterectomy,. [facility], 2016, [facility]. tubal ligation. left foot - CORN REMOVED. Rt EYE - LASER SURG - Family History Known Family History: Positive: Respiratory Disease - Social History Alcohol Use: Rare Alcohol Amount: 2017 Substance Use Type: None Smoking Status (MU): Never Smoked Tobacco Type: Cigarettes Have You Smoked in the Last Year: No - Immunization History Most Recent Influenza Vaccination: 0 Most Recent Pneumonia Vaccination: 0 Review of Systems All Other Systems Reviewed And Are Negative: Yes Constitutional: Positive: Negative Skin: Positive: Rash Respiratory: Positive: Negative Cardiovascular: Positive: Negative Gastrointestinal: Positive: Negative Musculoskeletal: Positive: Negative Physical Exam Triage Information Reviewed: Yes Appearance: Well-Appearing, No Pain Distress, Well-Nourished Vital Signs: Initial Vital Signs Temp 99 F 11/11/18 12:18 Pulse 72 11/11/18 12:18 Resp 18 11/11/18 12:18 BP 144/87 11/11/18 12:18 Pulse Ox 99 11/11/18 12:18 Vital Signs Reviewed: Yes Eyes: Positive: Conjunctiva Clear ENT: Positive: Hearing grossly normal Neck: Positive: Supple Respiratory: Positive: No respiratory distress, No accessory muscle use Cardiovascular: Positive: Pulses Normal Abdomen Description: Positive: Soft Musculoskeletal: Positive: ROM Intact, Edema @ - left ankle Neurological: Positive: Alert Psychological: Positive: Age Appropriate Behavior Skin: Positive: Other - 4CM X 6CM BALJINDER OF ERYTHEMA AND TENDERNESS LEFT LATERAL ANKLE WITH A FEW SCATTERED 1-2MM SIZED ULCERATIONS Course/Dx - Diagnoses Provider Diagnosis: Cellulitis of left ankle Discharge - Sign-Out/Discharge Documenting (check all that apply): Patient Departure All imaging exams completed and their final reports reviewed: No Studies - Discharge Plan Condition: Stable Disposition: HOME Prescriptions: Cephalexin CAP* [Keflex 500 CAP*] 500 mg PO BID #20 cap Triamcinolone 0.1% CREAM(NF) [Kenalog Cream 0.1%(NF)] 1 applic TOPICAL BID PRN # 1 tube PRN Reason: Itching Patient Education Materials: Cellulitis (ED) Referrals: Yamilex Gunderson MD [Primary Care Provider] - If Needed Additional Instructions: TAKE ANTIBIOTICS FOR THE FULL COURSE TO HELP TREAT FOR POSSIBLE INFECTION. TOPICAL STEROID SPARINGLY TO HELP CALM DOWN THE ITCHING AND INFLAMMATION. KEEP COOL, CLEAN AND DRY SEEK FOLLOW-UP IN THE NEXT 2-3 DAYS IF YOU DO NOT NOTICE IMPROVEMENT WITH THIS TREATMENT. TETANUS IMMUNIZATION GIVEN (TDAP): You have been given an immunization against tetanus. Please record this in your records. In general, a booster is needed only once every 10 years. The tetanus shot protects against tetanus or "lockjaw," which is a complication of certain wound infections (the tetanus shot cannot protect against the actual infection). The immunization site may become warm and red due to local reaction. If this occurs, apply warm compresses and take aspirin or ibuprofen to reduce inflammation and discomfort. Return for evaluation if the reaction becomes severe. - Billing Disposition and Condition Condition: STABLE Disposition: Home
== END 2018-11-11 13:08 | disposition home or self-care (01) ==
LOC: UCEAST 12:08
DX: L03.116 Cellulitis of left lower limb (principal); Z23 Encounter for immunization; E11.9 Type 2 diabetes mellitus without complications; I10 Essential (primary) hypertension; Z88.5 Allergy status to narcotic agent; Z83.6 Family history of other diseases of the respiratory system
CPT/HCPCS: 90471; 90715; 99212; G0463

== ENCOUNTER → 2018-12-26 08:57 | Day surgery (SDC) | payer OTHER ==
[~2018-12-26 08:57] MED LIST changes: +Acetaminophen IV 1GM/100ML * 1,000 MG/100 ML VIAL IVPB ONE; +Acetaminophen IV 1GM/100ML * 100 ML ONE; -Acetaminophen TAB* 325 MG PO ONE; -Buffered Lidocaine 0.9% SYRIN* 5 ML/SYR SYRINGE INTRADERM ONE; +Buffered Lidocaine 1% SYRIN* 1 ML/SYRINGE INTRADERM ONE; +Bupivacaine 0.5%* 50 ML VIAL ONE; -Dexamethasone IV* 4 MG/ML 1 ML (4 MG) IV SLOW PU ONE; +DiMENhydriNATE IV* 50 MG/ML VIAL IV PUSH PRN; -Famotidine IV* 10 MG/ML 2 ML (20 mg) IV ONE; +HYDROmorphone INJ1* 1 MG/ML SYRINGE ONE; +Lactated Ringers 1000 ML Bag* 1,000 ML IV SCH; +Lidocaine 2% PF * 5 ML VIAL ONE; +Midazolam* 1 MG/ML 2 ML VIAL (2 MG) ONE; +Naloxone* 0.4 MG/ML 1 ML VIAL IV PRN; +Propofol* 10 MG/ML 20 ML BTL ONE; +Rocuronium* 10 MG/ML VIAL ONE; +Sugammadex * 500 MG/5 ML VIAL IV PUSH ONE; +ceFAZolin 2 GM in NS PREMIX(*) 2 GM/100 ML BAG IVPB ONE; +fentaNYL* 50 MCG/ML 2 ML VIAL (100 MCG VIAL) ONE
--- NOTE | 2018-12-26 12:41 | OP ---
DATE OF OPERATION: 12/26/18 - [facility] DATE OF : 61 ATTENDING SURGEON: Raman Young MD PRE-OP DIAGNOSIS: Cholecystitis. POST-OP DIAGNOSIS: Cholecystitis. OPERATIVE PROCEDURE: Laparoscopic cholecystectomy. INDICATIONS FOR PROCEDURE: Cholecystitis. Risks included but not limited to bleeding, infection, injury to intraabdominal contents including the bowel and the bile duct were explained to the patient. The patient seemed to understand and agreed to the procedure and all questions were answered. DESCRIPTION OF PROCEDURE: The patient was taken to the operating room and placed supine. Preoperative antibiotics were given. After the successful induction of general endotracheal anesthesia, the abdomen was prepped and draped in sterile fashion. A time out was performed indicating the correct patient and correct procedure. A 5 mm trocar was placed under direct visualization of a camera in the subxiphoid position. Pneumoperitoneum was achieved at 15 mmHg. The camera was placed in the abdomen and the abdomen was scanned. There was no obvious injury from trocar placement. A 12 mm umbilical and two right-sided 5 mm trocars were placed all under direct visualization of the camera. The gallbladder was grasped and retracted up and over the liver. The cystic duct and artery was identified, isolated, clipped and divided. The gallbladder was removed from the hepatic bed using Bovie cautery with a hook. It was placed into an Endobag and removed from the umbilical port site. The right upper quadrant was inspected. The clips were in place. EBL minimal. Hemostasis was intact. The trocars were removed after pneumoperitoneum was completely released. The skin was closed with Monocryl and glue. She tolerated the procedure well. [id number]/[facility] #: [id number] [facility]
[2018-12-26] MEDS: fentaNYL* 50 MCG/ML 2 ML VIAL (100 MCG VIAL) IV PRN ×4 (12:44→13:21)
[2018-12-26 15:44] VITALS: BP 158/66
== END | disposition home or self-care (01) ==
LOC: OR 08:57
PROVIDERS: ATTEND Surgery
DX: K80.10 Calculus of gallbladder with chronic cholecystitis without obstruction (principal); E11.9 Type 2 diabetes mellitus without complications; I10 Essential (primary) hypertension; E66.9 Obesity, unspecified; Z68.36 Body mass index [BMI] 36.0-36.9, adult; K21.9 Gastro-esophageal reflux disease without esophagitis
CPT/HCPCS: 88304; J0690; J1170; J2250; J2704; J3010; J3490

== ENCOUNTER 2023-10-29 05:52 | Observation (INO) ==
[2023-10-29] MEDS ORDERED: Tranexamic Acid 1 GM/100ML BAG 2,000 MG/200 ML BAG IV ONE (06:15)
[2023-10-29] MEDS ORDERED: ceFAZolin 2 GM PREMIX 2 GM/50 ML BAG ONE (06:15)
[2023-10-29] MEDS ORDERED: Famotidine IV 10 MG/ML 2 ml VIAL (20 mg) ONE (06:16)
[2023-10-29 06:30] LABS: Rapid COVID-19 Molecular Undetected (Undetected)
[2023-10-29] MEDS ORDERED: Ondansetron 4 mg VIAL 2 MG/ML 2 ml VIAL ONE (06:54)
[2023-10-29] MEDS ORDERED: fentaNYL 100 mcg/2 ml 50 MCG/ML VIAL ONE ×6 (06:54→10:33)
[2023-10-29] MEDS ORDERED: Glycopyrrolate IV 0.2 MG/ML 1 ML VIAL ONE (06:54)
[2023-10-29] MEDS ORDERED: Phenylephrine IV 10 MG/ML 1 ml VIAL ONE (06:54)
[2023-10-29] MEDS ORDERED: Midazolam 2 mg/2 ml VIAL 1 mg/ml 2 ml VIAL (2 mg) ONE ×2 (06:54→07:09)
[2023-10-29] MEDS: Famotidine IV 10 MG/ML 2 ml VIAL (20 mg) IV ONE (07:01)
[2023-10-29] MEDS ORDERED: ROPIVACAINE 5 MG/ML 30 ML BTL (0.5%) ONE ×2 (07:05→07:09)
[2023-10-29] MEDS: Lactated Ringers 1000 ml BAG 1,000 ML IV SCH ×2 (07:13→12:06)
[2023-10-29] MEDS ORDERED: Rocuronium 50 mg VIAL 10 mg/ml 5 ml VIAL (50 mg) ONE (07:19)
[2023-10-29] MEDS ORDERED: Naloxone 0.4 mg VIAL 0.4 mg/ml 1 ml VIAL IV PRN (07:53)
[2023-10-29] MEDS ORDERED: HYDROmorphone 1 MG/1 ML SYRINGE IV PRN (07:53)
[2023-10-29] MEDS ORDERED: Dexamethasone IV 4 MG/ML VIAL 1 ml VIAL ONE (08:02)
[2023-10-29] MEDS ORDERED: HYDROmorphone 0.5 MG/0.5 ML SYRINGE ONE ×2 (08:27→08:29)
[2023-10-29] MEDS ORDERED: Ondansetron 4 mg VIAL 2 MG/ML 2 ml VIAL IV PRN (10:07)
[2023-10-29] MEDS ORDERED: Lactulose 30 ml UDC PO PRN (10:07)
[2023-10-29] MEDS ORDERED: Ondansetron ODT 4 mg TAB 4 MG TAB PO PRN (10:07)
[2023-10-29] MEDS ORDERED: Magnesium Hydroxide LIQ 30 ML UDC PO PRN (10:07)
[2023-10-29] MEDS: fentaNYL 100 mcg/2 ml 50 MCG/ML VIAL IV PRN (10:37)
[2023-10-29] MEDS ORDERED: Fluticasone NASAL SPRAY 50MCG 16 gm SPRAY BTL INTRANASAL PRN (11:21)
[2023-10-29] MEDS ORDERED: Levalbuterol HFA INHALER MDI INH PRN (11:21)
[2023-10-29] MEDS: Buffered Lidocaine 1% SYRIN 1 ml INTRADERM ONE (12:06)
[2023-10-29] MEDS: ceFAZolin 1 GM ADVAN 1 GM in NS 0.9% 50 ML 50 ML IVPB SCH (17:25)
[2023-10-29] MEDS: Insulin GLARGINE 100 un/ml 10 ml VIAL SUBCUT SCH (21:06)
[2023-10-29] MEDS: Magnesium Hydroxide LIQ 30 ML UDC PO SCH (21:06)
[2023-10-30 06:13] LABS: Hematocrit 32.8 % (35-45); Hemoglobin 11.3 g/dL (11.5-14.3); Mean Platelet Volume 8.4 fL (7.5-11.2); Platelet Count 230 10^3/uL (150-450)
[2023-10-30 06:31] LABS: Calcium 8.2 mg/dL (8.6-10.3); Creatinine, Serum 1.09 mg/dL (0.51-0.95); Potassium 4.1 mmol/L (3.5-5.0); eGFR CKD-EPI 58.2 (>60)
[2023-10-30] MEDS: Vitamin THERAPEUTIC TAB PO SCH (08:06)
[2023-10-30] MEDS: Potassium Chlor 10 meq TAB PO SCH (08:06)
[2023-10-30] MEDS: Calcium Polycarbophil 625mg TB PO SCH (08:07)
[2023-10-30 09:57] VITALS: BP 106/54
== END 2023-10-30 13:00 | disposition home or self-care (01) ==
LOC: OR 05:52 → SSU 05:52 → EDSTATUS 07:30
PROVIDERS: ADMIT Orthopaedic Surgery Adult Reconstructive Orthopaedic Surgery; ATTEND Orthopaedic Surgery Adult Reconstructive Orthopaedic Surgery